=== PATIENT | female | born 1945 | race Caucasian/White ===

== ENCOUNTER 2019-11-17 04:15 | Emergency (ER) | payer MEDICARE, BC, SELFPAY ==
--- NOTE | ~2019-11-17 | CT_ITS ---
EXAMINATION: CT lumbar spine [facility] EXAM DATE: 11/17/2019 05:26 INDICATION: Low right-sided back pain. TECHNIQUE: Spiral CT of the lumbar spine was performed without contrast. Axial, coronal and sagittal images were reviewed. The dose-length product (DLP) for this examination was 1154.03 mGy-cm. The exposure was tailored according to patient size (auto mA exposure control), and iterative reconstruct ion (ASIR) was used as additional dose reduction technique. There is no prior study for comparison. FINDINGS: There are no acute fractures identified or endplate erosive change. There is 4 mm anteroli sthesis L4 on L5 with mild to moderate disc disease, vacuum disc phenomenon at this level. Mild disc disease at the other lumbar levels. There is no spondylolysis. No sacral insufficiency fracture. The re are no osteoblastic or osteolytic lesions identified. Mild to moderate abdominal aortic arterial s clerosis. There is right adrenal gland adenoma measuring 1.3 cm, probable smaller left adrenal gland adenoma. Level by level evaluation: T12-L1: Disc does not extend beyond the endplate margin. Facet arthropathy: None. Neural foraminal stenosis: No stenosis. Central canal stenosis: No stenosis. L1-L2: Disc does not extend beyond the endplate margin. Facet arthropathy: Mild. Neural foraminal stenosis: No stenosis. Central canal stenosis: No stenosis. L2-L3: There is a mild diffuse disc bulge. Facet arthropathy: Mild bilateral. Neural foraminal stenosis: No stenosis. Central canal stenosis: No stenosis. L3-L4: There is a mild diffuse disc bulge. Facet arthropathy: Mild to moderate. Neural foraminal stenosis: Mild to moderate right, mild left. Central canal stenosis: Mild to moderate. L4-L5: There is a moderate diffuse disc bulge. Facet arthropathy: Severe bilateral. Ligamentum flavum enlargement. Neural foraminal stenosis: Moderate bilateral, right greater than left. Central canal stenosis: Severe. L5-S1: There is a mild to moderate diffuse disc bulge. Facet arthropathy: Severe bilateral. Neural foraminal stenosis: Moderate bilateral, left greater than right. Central canal stenosis: Moderate. IMPRESSION: 1. L4-5 severe central canal stenosis. 2. Severe lower lumbar facet arthropathy. Reviewed, dictated and finalized at location A.
[2019-11-17 04:26] VITALS: BP 194/58; PULSE 76; RESP 18; TEMP 36.2; O2SAT 99
--- NOTE | 2019-11-17 04:38 | ED.GENADULT ---
HPI - General Adult General Chief complaint: Extremity Injury, Lower Stated complaint: R Hip Pain Time Seen by Provider: 11/17/19 04:26 Source: patient Mode of arrival: ambulatory Limitations: no limitations History of Present Illness HPI narrative: Patient is a 74-year-old female who presents for evaluation of right lower back pain. Patient reports the onset of pain approximately 3 days ago after she stepped down from her riding lawnmower, felt like she may have injured her back at that point in time. Pain is located on the right lower back with radiation into the right buttock, down the right thigh. Patient reports sharp, burning pain that seems to spasm. Pain does not severe when she is not moving. Exacerbated with movement. No associated numbness, saddle anesthesia, hesitancy, difficulty with urination. No fever or chills. Patient did not fall to the ground or have any trauma to that area. She denies any redness, swelling or bruising. Patient reports the use of Tylenol with good improvement in her pain. This evening, pain began to worsen while she was trying to find a more comfortable position to sleep, that she sought care in our emergency department. Related Data Allergies Allergy/AdvReac Type Severity Reaction Status Date / Time No Known Allergies Allergy Verified 11/17/19 04:28 Review of Systems Review of Systems: Narrative: CONSTITUTIONAL: Denies fever, chills, or sweats ENT: Denies rhinorrhea, congestion, sore throat, or otalgia. CARDIOVASCULAR: Denies chest pain RESPIRATORY: Denies cough or dyspnea. GASTROINTESTINAL: Denies abdominal pain GENITOURINARY: Denies dysuria or hematuria. SKIN: Denies rash or itching. MUSCULOSKELETAL: Reports right-sided back pain, denies hip pain, reports myalgias of the right thigh NEUROLOGIC: Denies headache, numbness, or weakness. [facility] Past Medical History Medical History (Updated 11/17/19 @ 06:13 by Joanne Adair MD) Arthritis Endometrial cancer Hypercholesterolemia Hypertension Social History Social History (Updated 11/17/19 @ 04:50 by Joanne Adair MD) Smoking status: Never smoker Alcohol intake: never Substance use: never Living arrangements: with family Gender identity (if verbalized by the patient): Female Exam Narrative: Exam Narrative: GENERAL: Awake, alert, conversant, mildly uncomfortable appearing HEAD: Normocephalic, atraumatic. EYES: PERRLA and EOMI. ENT: Nares clear, no rhinorrhea or epistaxis. Mucous membranes moist. NECK: Supple. CHEST: No respiratory distress, breathing even and non labored HEART: Regular rate, sinus rhythm ABDOMEN:Non distended, non tender EXTREMITIES: Normal range of motion. No edema. Thorax: No midline thoracic or lumbar pain. Positive right SI joint tenderness, which exactly reproduces pain. Hip is nontender to palpation. No pain with internal or external rotation of the right or left hip. Positive straight leg raise test on the right. Intact distal sensation. Intact EHL/FHL. SKIN: Warm, dry, no rash. NEURO:No focal deficits. Alert and oriented x3 Course Vital Signs Vital signs: Vital Signs Temperature 36.2 C L 11/17/19 04:26 Pulse Rate 76 11/17/19 04:26 Respiratory Rate 18 11/17/19 04:26 Blood Pressure 194/58 H 11/17/19 04:26 Pulse Oximetry 99 11/17/19 04:26 Temperature 36.2 C L 11/17/19 04:26 Pulse Rate 68 11/17/19 05:29 Respiratory Rate 19 11/17/19 05:29 Blood Pressure 122/86 11/17/19 05:29 Pulse Oximetry 98 11/17/19 05:29 Medical Decision Making MDM Narrative Medical decision making narrative: Patient presented for evaluation of right-sided back pain which is reproducible on exam and most consistent with musculoskeletal etiology. At the time of assessment, patient has no saddle anesthesia, numbness, weakness. Patient has been ambulatory. She only has pain with movement and straight leg raise. Otherwise, patient is comfortable. CT scan shows severe L4-5 c
[2019-11-17] MEDS: predniSONE 20 MG TABLET 60 MG PO (05:02)
[2019-11-17] MEDS: DIAZEPAM 5 MG TABLET PO (05:02)
[2019-11-17] MEDS: KETOROLAC (*BKC) 60 MG/2 ML VIAL 30 MG IM (05:02)
[2019-11-17] MEDS: LIDOCAINE 5% PATCH 1 PATCH TRANSDERM (05:28)
[2019-11-17 05:29] VITALS: BP 122/86; PULSE 68; RESP 19; O2SAT 98
[2019-11-17 06:33] VITALS: BP 149/64; BP 149/65; PULSE 65; RESP 18; RESP 19; TEMP 36.6; O2SAT 100
== END 2019-11-17 06:47 | disposition home or self-care (01) ==
PROVIDERS: Emergency Provider Emergency Medicine; PCP Internal Medicine
DX: M54.41 Lumbago with sciatica, right side (principal); M48.061 Spinal stenosis, lumbar region without neurogenic claudication; M19.90 Unspecified osteoarthritis, unspecified site; E78.00 Pure hypercholesterolemia, unspecified; I10 Essential (primary) hypertension; Z85.42 Personal history of malignant neoplasm of other parts of uterus
CPT/HCPCS: 72131; 96372; 99284; A9270; J1885; J7512

== ENCOUNTER 2020-02-25 01:43 | Outpatient (CLI) | payer MEDICARE, BC, SELFPAY ==
[2020-02-25 18:54] LABS: SARS-CoV-2 RNA PCR Negative
== END 2020-02-25 01:44 | disposition home or self-care (01) ==
LOC: ANHCOVIDDT 01:45
PROVIDERS: PCP Internal Medicine; Visit Provider Internal Medicine Gastroenterology
DX: Z01.812 Encounter for preprocedural laboratory examination (principal); Z20.828 Contact with and (suspected) exposure to other viral communicable diseases
CPT/HCPCS: 87635; C9803; U0003

== ENCOUNTER 2020-02-27 00:25 | Day surgery (SDC) | payer MEDICARE, BC, SELFPAY ==
[2020-02-14 13:14] VITALS: BMI 37.9
[2020-02-27 07:08] VITALS: BP 120/107; PULSE 72; RESP 16; TEMP 36.3; O2SAT 99; BMI 36.3
--- NOTE | 2020-02-27 07:13 | PM.HPGS ---
History of Present Illness History of Present Illness Consent: Risks, benefits, and alternatives have been discussed and questions answered. Patient agrees to proceed with procedure. Chief complaint: Neoplasm Screening Narrative: Kenyatta Perkins is a 75 year old W female referred for screening colonoscopy. Patient's last colonoscopy is 10 years ago she turns on 1st screening exam and she has an average risk patient. [facility] Past Medical History Medical History (Updated 02/27/20 @ 07:15 by Giuseppe Hensley MD) Arthritis Diabetes Endometrial cancer Hypercholesterolemia Hypertension Social History Social History (Updated 11/17/19 @ 04:50 by Joanne Adair MD) Smoking status: Never smoker Alcohol intake: never Substance use: never Gender identity (if verbalized by the patient): Female Meds Home Medications and Allergies Home Medications Medication Instructions Recorded Confirmed Type acetaminophen 500 mg PO Q6H PRN #30 cap 11/17/19 02/14/20 Rx ibuprofen 400 mg PO TID PRN 10 Days #30 11/17/19 02/14/20 Rx tablet B-complex with vitamin C [Super B 1 tablet PO DAILY 02/14/20 02/14/20 History Complex-Vitamin C] alpha lipoic acid 200 mg PO DAILY 02/14/20 02/14/20 History aspirin [Adult Low Dose Aspirin] 81 mg PO DAILY 02/14/20 02/14/20 History atorvastatin 10 mg PO DAILY 02/14/20 02/14/20 History etodolac 400 mg PO DAILY 02/14/20 02/14/20 History losartan-hydrochlorothiazide 1 tablet PO DAILY 02/14/20 02/14/20 History metformin 500 mg PO DAILY 02/14/20 02/14/20 History montelukast 10 mg PO DAILY 02/14/20 02/14/20 History omeprazole 20 mg PO DAILY 02/14/20 02/14/20 History Allergies Allergy/AdvReac Type Severity Reaction Status Date / Time No Known Allergies Allergy Verified 02/27/20 07:06 Vital Signs Vital Signs - 24 hr 02/27/20 07:08 Temperature 36.3 C L Pulse Rate 72 Respiratory Rate 16 Blood Pressure 120/107 H Pulse Oximetry 99 Exam Const: Orientation/consciousness: patient oriented x3 Resp: Auscultation: clear to auscultation bilaterally Cardio: Rate: regular rate Rhythm: regular rhythm Heart sounds: no murmurs GI: GI Palp: Yes Soft to palpation, No Tenderness to palpation present (GI), Yes No hepatosplenomegaly present and No Palpable mass present Auscultation: normal bowel sounds Neuro: General: patient oriented x3 and no focal motor deficits Extrem: General: no pedal edema Assessment and Plan Additional Plan screening colonoscopy in average risk patient
--- NOTE | 2020-02-27 07:27 | WPDANESEPPF ---
Anes - Initial Pre Proc Eval Procedure: Operation Date: 02/27/20 08:00 Proposed Procedures p Screening Colonoscopy - Giuseppe Hensley MD Date/Time: 02/27/20 07:27 Surgeon: Giuseppe Hensley MD Pre Op Diagnosis: Neoplasm Screening Patient Data Age: 75 Gender: F Height: 5 ft 1 in Weight: 87.4 kg Last Vital Signs Temp 97.3 F L 02/27/20 07:08 Pulse 72 02/27/20 07:08 Resp 16 02/27/20 07:08 BP 120/107 H 02/27/20 07:08 Pulse Ox 99 02/27/20 07:08 Allergies Allergy/AdvReac Type Severity Reaction Status Date / Time No Known Allergies Allergy Verified 02/27/20 07:06 Home Medications Medication Instructions Recorded Confirmed Type acetaminophen 500 mg PO Q6H PRN #30 cap 11/17/19 02/14/20 Rx ibuprofen 400 mg PO TID PRN 10 Days #30 11/17/19 02/14/20 Rx tablet B-complex with vitamin C [Super B 1 tablet PO DAILY 02/14/20 02/14/20 History Complex-Vitamin C] alpha lipoic acid 200 mg PO DAILY 02/14/20 02/14/20 History aspirin [Adult Low Dose Aspirin] 81 mg PO DAILY 02/14/20 02/14/20 History atorvastatin 10 mg PO DAILY 02/14/20 02/14/20 History etodolac 400 mg PO DAILY 02/14/20 02/14/20 History losartan-hydrochlorothiazide 1 tablet PO DAILY 02/14/20 02/14/20 History metformin 500 mg PO DAILY 02/14/20 02/14/20 History montelukast 10 mg PO DAILY 02/14/20 02/14/20 History omeprazole 20 mg PO DAILY 02/14/20 02/14/20 History Patient hx anesthesia problems: none Family hx anesthesia problems: none PMFSH Past Medical History Medical History (Updated 02/27/20 @ 07:15 by Giuseppe Hensley MD) Arthritis Diabetes Endometrial cancer Hypercholesterolemia Hypertension Social History Social History (Updated 11/17/19 @ 04:50 by Joanne Adair MD) Smoking status: Never smoker Alcohol intake: never Substance use: never Gender identity (if verbalized by the patient): Female Anes - Eval Final PreProcedure Day of Procedure 02/27/20 07:27 Patient weight: obese Heart: regular rate and rhythm Lungs: clear to auscultation Airway: Mallampati scale class II Neurological: alert and oriented Last oral intake: >/= 8 hours ASA classification: III Emergent: no Anesthetic plan: proceed Anesthesia type and monitoring: general GIVS and standard monitoring Informed Consent: The patient's anesthetic plan and its attendant risks and benefits were discussed with the patient/family/POA. Questions were solicited and answers provided to the satisfaction of the patient/family/POA.
[2020-02-27 07:33] LABS: Glucose Point of Care 126 (65-105)
[2020-02-27] MEDS: LACTATED RINGERS 1,000 ML 150 ML IV CONT (07:45)
[2020-02-27 08:24] VITALS: BP 103/37; PULSE 74; RESP 22; O2SAT 99
[2020-02-27 08:34] VITALS: BP 107/48; PULSE 71; RESP 17; O2SAT 99
[2020-02-27 08:44] VITALS: BP 106/54; PULSE 73; RESP 17; O2SAT 99
== END 2020-02-27 08:53 | disposition home or self-care (01) ==
PROVIDERS: PCP Internal Medicine; Visit Provider Internal Medicine Gastroenterology
PROC: 0DJD8ZZ Inspection of Lower Intestinal Tract, Via Natural or Artificial Opening Endoscopic (ICD-10-PCS; CPT 45378; principal; 2020-02-27 08:00)
DX: Z12.11 Encounter for screening for malignant neoplasm of colon (principal); K64.8 Other hemorrhoids; K64.4 Residual hemorrhoidal skin tags; I10 Essential (primary) hypertension; E11.9 Type 2 diabetes mellitus without complications; E78.00 Pure hypercholesterolemia, unspecified; Z85.42 Personal history of malignant neoplasm of other parts of uterus; Z79.82 Long term (current) use of aspirin; Z79.84 Long term (current) use of oral hypoglycemic drugs; E66.9 Obesity, unspecified; Z68.36 Body mass index [BMI] 36.0-36.9, adult
CPT/HCPCS: G0121; J2704; J7120

== ENCOUNTER 2021-05-04 17:26 | Emergency (ER) | payer MEDICARE, BC, SELFPAY ==
[2021-05-04] VITALS (43 sets, daily range): BP systolic 114–207; BP diastolic 58–102; PULSE 76–101; RESP 11–37; TEMP 36.7; O2SAT 69–100
--- NOTE | ~2021-05-04 | CT_ITS ---
EXAMINATION: CTA brain carotid DATE: 05/04/2021 19:00 CDT INDICATION: Speech difficulty and confusion TECHNIQUE: Computed tomographic angiography (CTA) of the head was performed without and with 100 mL O mnipaque-350 intravenous contrast. CTA of the neck was performed with intravenous contrast. The dose- length product was 605.33 mGy-cm. Maximum intensity projection and volume rendered 3D-reconstructions were created by the technologist on a separate workstation. COMPARISON: None. FINDINGS: HEAD CT/CTA: There is mild generalized atrophy. There are scattered moderate periventricular and subc ortical white matter changes, most likely related to small vessel ischemic disease (microangiopathy). No ventriculomegaly or midline shift. No acute intracranial hemorrhage, infarction, mass or mass eff ect. Basilar cisterns are patent. There are dominant vertebral arteries. The anterior, middle and posterior cerebral arteries are symme tric. No significant stenosis, occlusion or aneurysm. There is mild atherosclerosis. NECK CTA: The aorta and great vessels are unremarkable without evidence for aneurysm or dissection. T he common and internal carotid arteries are within normal limits without significant stenosis, occlus ion, dissection or aneurysm. Visualized lung parenchyma is unremarkable. There is 0% stenosis of the proximal right internal carotid artery relative to normal distal artery l umen diameter (NASCET criteria). There is 0% stenosis of the proximal left internal carotid artery re lative to normal distal artery lumen diameter. IMPRESSION: 1: No significant vascular abnormality of the neck or intracranial arteries. 2: No acute intracranial abnormality. 3: Chronic age-related findings. Reviewed, dictated and finalized at location A.
--- NOTE | 2021-05-04 17:47 | ECG_ITS ---
Measurements Intervals [place] Rate: 89 P: 56 WA: 179 QRS: 32 QRSD: 105 T: -9 QT: 355 QTc: 432 Interpretive Statements SINUS RHYTHM FREQUENT VENTRICULAR PREMATURE COMPLEXES ST-T WAVE ABNORMALITY IN INFERIOR LEADS- CONSIDER ISCHEMIA BASELINE ARTIFACT- I, II, AVR, AVL, AVF, V4 ABNORMAL ECG Electronically Signed On 05-04-2021 19:53:58 CDT by Brad Syed D.O.
[2021-05-04 18:02] LABS: Basophils Percent Auto 0.3 % (0.2-1.2); Eosinophils Absolute Auto 0.2 K/mm3 (0-0.3); Eosinophils Percent Auto 3.2 % (0-4.4); Hematocrit 33.4 % (37.0-47.0); Hemoglobin 10.9 g/dL (12.0-15.0); Immature Granulocyte Absolute 0.02 K/mm3 (0.00-0.031); Immature Granulocyte Percent A 0.3 % (0-0.5); Lymphocytes Absolute Auto 1.17 K/mm3 (0.9-3.2); Lymphocytes Percent Auto 19.8 % (18.3-44.2); Mean Corpuscular HGB Conc 32.6 g/dl (32-36); Mean Corpuscular Hemoglobin 31.4 pg (26-34); Mean Corpuscular Volume 96.3 fl (80-100); Mean Platelet Volume 10.3 fl (7.4-10.4); Monocytes Absolute Auto 0.8 K/mm3 (0.1-0.6); Neutrophils Absolute Auto 3.8 K/mm3 (1.3-6.7); Neutrophils Percent Auto 63.4 % (45.5-73.1); Platelet Count Result 210 k/mm3 (150-375); Red Blood Count 3.47 M/mm3 (4.2-5.4); Red Cell Distribution Width 13.2 % (11.5-14.5); White Blood Count 5.9 K/mm3 (4.5-10.0)
--- NOTE | 2021-05-04 18:10 | ED.GENADULT ---
HPI - General Adult General Chief complaint: Suspected CVA Stated complaint: ?stroke , onset few hrs ago. Time Seen by Provider: 05/04/21 17:37 Source: patient, family and RN notes reviewed History of Present Illness HPI narrative: Patient is a 76 y/o female brought in speech difficulty and confusion. states that they were taking their dog to a vet and he noticed that she started to have difficulty with speech suddenly around 3:30 PM. There is no known alleviating or exacerbating factor. She denies any complaint, but appears confused. Related Data Home Medications Medication Instructions Recorded Confirmed B-complex with vitamin C [Super B 1 tablet PO DAILY 02/14/20 02/14/20 Complex-Vitamin C] alpha lipoic acid 200 mg PO DAILY 02/14/20 02/14/20 aspirin [Adult Low Dose Aspirin] 81 mg PO DAILY 02/14/20 02/14/20 atorvastatin 10 mg PO DAILY 02/14/20 02/14/20 etodolac 400 mg PO DAILY 02/14/20 02/14/20 losartan-hydrochlorothiazide 1 tablet PO DAILY 02/14/20 02/14/20 metformin 500 mg PO DAILY 02/14/20 02/14/20 montelukast 10 mg PO DAILY 02/14/20 02/14/20 omeprazole 20 mg PO DAILY 02/14/20 02/14/20 Allergies Allergy/AdvReac Type Severity Reaction Status Date / Time No Known Allergies Allergy Verified 05/04/21 17:47 Review of Systems Constitutional: Constitutional: Denies chills, Denies fever(s), Denies headache(s) and Denies weakness Eyes: Eyes: Denies blurry vision ENT: Denies headache(s) and Denies neck pain Cardiovascular: Cardiovascular: Denies chest pain and Denies dyspnea Respiratory: Respiratory: Denies cough and Denies dyspnea Gastrointestinal: Gastrointestinal: Denies abdominal pain, Denies diarrhea, Denies nausea and Denies vomiting Genitourinary: Genitourinary: Denies hematuria and Denies dysuria Musculoskeletal: Musculoskeletal: Denies back pain and Denies neck pain Neurologic: Reports Abnormal speech present, Denies headache(s) and Denies weakness PMFSH Past Medical History Medical History Arthritis Diabetes Endometrial cancer Hypercholesterolemia Hypertension Social History Social History Smoking status: Never smoker Alcohol intake: never Substance use: never Gender identity (if verbalized by the patient): Female Exam Const: General: no acute distress and well developed Orientation/consciousness: oriented to person and confusion HENMT: Head: normocephalic Ears: external ears normal General nose exam: Normal external nose present Eyes: General: appearance normal, both eyes and all related structures Conjunctivae: conjunctivae normal Neck: Neck: normal visual inspection and full ROM Chest: Chest palpation & inspection: normal inspection of the chest and no tenderness Resp: Effort & Inspection: normal respiratory effort Auscultation: clear to auscultation bilaterally Cardio: Rate: regular rate Rhythm: regular rhythm GI: GI Palp: No abdominal tenderness and Yes Soft to palpation Skin: General skin exam: normal color and turgor normal Neuro: General: oriented to person and confusion Cognition (Neuro): abnormal cognition Extrem: General: normal to inspection, full ROM and no pedal edema Psych: Appearance: grossly normal Mental Status: mental status grossly normal Affect: normal affect Course Consultations Consultation #1: Discussed with Dr. Yang (neurology), who agrees to accept the patient for transfer. Date: 05/04/21 Time: 19:30 Vital Signs Vital signs: Vital Signs Pulse Rate 97 05/04/21 17:37 Respiratory Rate 11 L 05/04/21 17:37 Pulse Oximetry 100 05/04/21 17:37 Temperature 36.7 C 05/04/21 17:40 Pulse Rate 85 05/04/21 20:55 Respiratory Rate 18 05/04/21 20:55 Blood Pressure 150/58 H 05/04/21 20:55 Pulse Oximetry 98 05/04/21 20:55 Medical Decision Making Vital Signs Vital Signs: Vital Signs Pulse Rate 9
[2021-05-04 18:11] LABS: Anion Gap 11 mmol/L (8-16); Blood Urea Nitrogen 21 mg/dL (7-17); Calcium 9.6 mg/dL (8.4-10.2); Carbon Dioxide 24 mmol/L (22-30); Chloride 107 mmol/L (98-107); Estimated CRCL calculation 42 ml/min; Estimated Glomerular Filt Rate 54; Glucose 113 mg/dL (65-110); Potassium 4.1 mmol/L (3.4-5.0); Sodium 142 mmol/L (137-145)
[2021-05-04 18:12] LABS: INR 0.9; Prothrombin Time 12.2 Seconds (11.1-14.7)
[2021-05-04 18:13] LABS: Partial Thromboplastin Time 21.8 SECONDS (22.3-36.8)
--- NOTE | 2021-05-04 18:17 | PC.NURSE ---
Pt off floor to radiology
--- NOTE | 2021-05-04 18:50 | PC.NURSE ---
increased labetalol to 20mg from 10mg IV
[2021-05-04] MEDS: LABETALOL HCL INJ 100 MG/20 ML VIAL 20 MG IV PUSH ×2 (18:51→19:36)
--- NOTE | 2021-05-04 18:54 | PC.NURSE ---
Called pharmacy to confirm patient weight of 85 kg, asking to adjust TPA dose
[2021-05-04] MEDS: LABETALOL HCL INJ 100 MG/20 ML VIAL 10 MG IV PUSH ×3 (19:02→19:14)
--- NOTE | 2021-05-04 19:16 | PC.NURSE ---
OK to begin TPA per MD. BP 178/83, HR 79
--- NOTE | 2021-05-04 19:23 | PC.NURSE ---
TPA Start 1922, bolus of 7.6
--- NOTE | 2021-05-04 19:50 | PC.NURSE ---
Spoke with Dr Bautista about most recent vitals. OK to hold nicardipine drip at this time until systolic is about 185
--- NOTE | 2021-05-04 19:59 | PC.NURSE ---
Spoke with Reilly from [facility]. Admit to neuro ICU [id number]. Call report to [phone]. Bill [phone]. Accepting physician is Dr. Santiago
[2021-05-04] MEDS: niCARdipine 20 MG/200 ML 20 MG/200 ML BAG 50 MG IV CONT (20:05)
== END 2021-05-04 21:00 | disposition short-term general hospital (02) ==
LOC: ANHED 17:49
PROVIDERS: Emergency Provider Emergency Medicine; PCP Internal Medicine
DX: I63.9 Cerebral infarction, unspecified (principal); R29.704 NIHSS score 4; I10 Essential (primary) hypertension; E11.9 Type 2 diabetes mellitus without complications; E78.00 Pure hypercholesterolemia, unspecified; M19.90 Unspecified osteoarthritis, unspecified site; Z79.84 Long term (current) use of oral hypoglycemic drugs; Z79.82 Long term (current) use of aspirin; Z85.42 Personal history of malignant neoplasm of other parts of uterus; I49.3 Ventricular premature depolarization; R94.31 Abnormal electrocardiogram [ECG] [EKG]
CPT/HCPCS: 36415; 70496; 70498; 80048; 85025; 85610; 85730; 93005; 96365; 96375; 96376; 99285; J2997; Q9967

== ENCOUNTER 2021-06-28 19:21 | Inpatient (IN) | payer MEDICARE, BC, SELFPAY ==
--- NOTE | ~2021-06-28 | MR_ITS ---
EXAMINATION: MR brain/brain stem wo con DATE: 06/29/2021 11:28 INDICATION: Neurological changes. Altered mental status. TECHNIQUE: Magnetic resonance imaging (MRI) of the brain and brainstem was performed without intraven ous contrast. Sequences included sagittal and axial T1-weighted FSE, axial diffusion-weighted FS EPI, axial T2*-weighted GRE, axial T2-weighted FLAIR Propeller, and axial T2-weighted Propeller. Apparent diffusion coefficient (ADC) maps were created. COMPARISON: Head CT 06/28/2021 FINDINGS: There are scattered areas of nonspecific increased T2-weighted signal intensity in the cere bral white matter. There is a small old infarct in right cerebellum. There is no intracranial hemorrh age, acute infarction, or abnormal intracranial mass lesion. The ventricles are normal in size. There are likely changes of ocular lens replacement surgeries. There is anteroposterior elongation of the ocular globes. There is mild mucosal thickening in the ethmoid sinuses. The mastoid air cells are nor mal. IMPRESSION: 1. Small old infarct in right cerebellum. 2. Moderate nonspecific cerebral white matter disease, which likely represents chronic small vessel i schemic disease. Reviewed, dictated and finalized at location A. S [employer] IMPRESSION: 1. Small old infarct in right cerebellum. 2. Moderate nonspecific cerebral white matter disease, which likely represents chronic small vessel ischemic disease.
--- NOTE | ~2021-06-28 | CT_ITS ---
EXAMINATION: CT brain wo con DATE: 06/28/2021 19:39 INDICATION: Acute mental status changes including confusion with inappropriate verbal responses. TECHNIQUE: Computed tomography (CT) of the head was performed without intravenous contrast. Sagittal and coronal reconstructions were performed. The mA was adjusted according to patient size. Iterative reconstruction technique was employed. The dose-length product was 605.33 mGy-cm. COMPARISON: head CT dated 05/04/2021 FINDINGS: No acute intracranial hemorrhage, acute infarction or abnormal extra axial fluid collection. There is moderate scattered white matter hypoattenuation consistent with chronic small vessel ischemic diseas e. Symmetric prominence of the sulci and subarachnoid spaces overlying the convexities consistent wit h mild to moderate age-appropriate diffuse cerebral volume loss. Ventricles are normal and symmetric. No mass/mass effect. Changes of bilateral intraocular lens replacement. The orbits and mastoid air c ells are normal. Mild mucosal thickening the bilateral ethmoid sinuses. IMPRESSION: 1. No acute intracranial process. 2. Chronic age-related changes including mild to moderate diffuse volume loss and moderate scattered white matter hypoattenuation consistent with chronic small vessel ischemic disease. Reviewed, dictated and finalized at location H. ECT MANAGEMENT PROFESSIONAL IMPRESSION: 1. No acute intracranial process. 2. Chronic age-related changes including mild to moderate diffuse volume loss a nd moderate scattered white matter hypoattenuation consistent with chronic smal l vessel ischemic disease.
--- NOTE | ~2021-06-28 | CT_ITS ---
EXAMINATION: CTA BRAIN/CAROTID DATE: 06/28/2021 21:29 INDICATION: Altered mental status TECHNIQUE: Computed tomographic angiography (CTA) of the head and neck was performed with 100 mL Omni paque-350 intravenous contrast. Multiplanar reconstructions and maximum intensity projection 3D-recon structions of the carotid arteries and of the intracranial arteries were created by the technologist on a separate workstation. Automated exposure control and iterative reconstruction technique were em ployed.The dose-length product was 986.41 mGy-cm. COMPARISON: None. FINDINGS: Carotid arteries: There is 0% stenosis of the right carotid bulb relative to normal distal artery lumen diameter (NASCE T criteria). There is 0% stenosis of the left carotid bulb relative to normal distal artery lumen kal meter. Cervical soft tissues and visualized upper lungs are unremarkable. Mild cervical dextrocurvatu re with multilevel mild to moderate right-sided and moderate to severe left-sided facet osteoarthriti s. 2 mm anterolisthesis C4 on C5. Intracranial arteries Minimal calcified atherosclerotic plaque at the bilateral carotid siphons without hemodynamically sig nificant stenosis. There is no evident plaque or other hemodynamically significant stenosis in the ve rtebral or basilar arteries. Vertebral arteries are codominant. There are no aneurysms identified. B oth A1 and P1 segments are patent. Cerebral arterial arborization appears symmetric. No abnormally e nhancing brain lesions. IMPRESSION: 1. 0% stenosis of the right and left carotid bulbs relative to normal distal artery lumen diameter (N ASCET criteria). 2. Minimal atherosclerotic plaque without hemodynamically significant stenosis at the bilateral carot id siphons. Otherwise unremarkable cerebral CT angiogram. Reviewed, dictated and finalized at location . S PULLER HELPER IMPRESSION: 1. 0% stenosis of the right and left carotid bulbs relative to normal distal ar cheikh lumen diameter (NASCET criteria). 2. Minimal atherosclerotic plaque without hemodynamically significant stenosis at the bilateral carotid siphons. Otherwise unremarkable cerebral CT angiogram.
[2021-06-28 19:25] VITALS: BP 226/89; PULSE 92; RESP 18; TEMP 36.6; O2SAT 98
[2021-06-28 19:29] LABS: Glucose Point of Care 117 mg/dl (65-105)
[2021-06-28 19:45] VITALS: BP 207/80; PULSE 91; RESP 19; O2SAT 99
--- NOTE | 2021-06-28 20:05 | ED.GENADULT ---
HPI - General Adult General Chief complaint: Suspected CVA Stated complaint: I think my is having a stroke Time Seen by Provider: 06/28/21 19:58 Source: patient and RN notes reviewed History of Present Illness HPI narrative: Patient is a 76 y/o female here for altered mental status. states that she was acting strangely around 6:45 PM. He states that she was putting fuller she just bought in trash can. This is usual for her. states that her confusion has mostly cleared up. When asked why she was putting newly bought flower in trash, she states that she was trying to clean up. She has no complaint at this time. Of note, she was seen here for speech difficulty 2 months ago and was given tPA for stroke and transferred to [place]. Related Data Home Medications Medication Instructions Recorded Confirmed B-complex with vitamin C [Super B 1 tablet PO DAILY 02/14/20 02/14/20 Complex-Vitamin C] alpha lipoic acid 200 mg PO DAILY 02/14/20 02/14/20 atorvastatin 10 mg PO DAILY 02/14/20 02/14/20 etodolac 400 mg PO DAILY 02/14/20 02/14/20 losartan-hydrochlorothiazide 1 tablet PO DAILY 02/14/20 02/14/20 metformin 500 mg PO DAILY 02/14/20 02/14/20 montelukast 10 mg PO DAILY 02/14/20 02/14/20 omeprazole 20 mg PO DAILY 02/14/20 02/14/20 cyclobenzaprine 5 mg 06/28/21 Allergies Allergy/AdvReac Type Severity Reaction Status Date / Time No Known Allergies Allergy Verified 06/28/21 21:17 Review of Systems Constitutional: Constitutional: Denies chills, Denies fever(s), Denies headache(s) and Denies weakness Eyes: Eyes: Denies blurry vision ENT: Denies headache(s) and Denies neck pain Cardiovascular: Cardiovascular: Denies chest pain and Denies dyspnea Respiratory: Respiratory: Denies cough and Denies dyspnea Gastrointestinal: Gastrointestinal: Denies abdominal pain, Denies diarrhea, Denies nausea and Denies vomiting Genitourinary: Genitourinary: Denies hematuria and Denies dysuria Musculoskeletal: Musculoskeletal: Denies back pain and Denies neck pain Neurologic: Reports behavioral changes, Reports confusion, Denies headache(s) and Denies weakness PMFSH Past Medical History Medical History Arthritis Diabetes Endometrial cancer Hypercholesterolemia Hypertension Social History Social History Smoking status: Never smoker Alcohol intake: never Substance use: never Gender identity (if verbalized by the patient): Female Exam Const: General: no acute distress and well developed Orientation/consciousness: oriented to person, oriented to place, oriented to time and patient oriented x3 HENMT: Head: normocephalic Ears: external ears normal General nose exam: Normal external nose present Eyes: General: appearance normal, both eyes and all related structures Conjunctivae: conjunctivae normal Neck: Neck: normal visual inspection and full ROM Chest: Chest palpation & inspection: normal inspection of the chest and no tenderness Resp: Effort & Inspection: normal respiratory effort Auscultation: clear to auscultation bilaterally Cardio: Rate: regular rate Rhythm: regular rhythm GI: GI Palp: No abdominal tenderness and Yes Soft to palpation Skin: General skin exam: normal color and turgor normal Neuro: General: oriented to person, oriented to place, oriented to time and patient oriented x3 Cranial nerves: Yes CN's II-XII intact bilaterally Cognition (Neuro): normal cognition Speech: normal speech Motor exam (neuro): 5/5 motor strength present throughout Sensory Exam: normal sensation Coordination: [id number] test normal and [id number] test normal Extrem: General: normal to inspection, full ROM and no pedal edema Psych: Appearance: grossly normal Mental Status: mental status grossly normal Affect: normal affect Course Consultations Consultation #1: Discussed with Dr. Salas
--- NOTE | 2021-06-28 20:18 | ECG_ITS ---
Measurements Intervals [place] Rate: 79 P: 46 PA: 168 QRS: 34 QRSD: 109 T: -14 QT: 362 QTc: 417 Interpretive Statements SINUS RHYTHM NONSPECIFIC ST & T-WAVE ABNORMALITY- INFERIOR LEADS BORDERLINE ECG Electronically Signed On 06-29-2021 5:41:54 [employer] by Brad Syed D.O.
[2021-06-28 20:47] LABS: Basophils Percent Auto 0.5 % (0.2-1.2); Eosinophils Absolute Auto 0.2 K/mm3 (0-0.3); Eosinophils Percent Auto 2.5 % (0-4.4); Hematocrit 34.2 % (37.0-47.0); Hemoglobin 11.2 g/dL (12.0-15.0); Immature Granulocyte Absolute 0.02 K/mm3 (0.00-0.031); Immature Granulocyte Percent A 0.3 % (0-0.5); Lymphocytes Absolute Auto 1.59 K/mm3 (0.9-3.2); Mean Corpuscular HGB Conc 32.7 g/dl (32-36); Mean Corpuscular Hemoglobin 31.7 pg (26-34); Mean Corpuscular Volume 96.9 fl (80-100); Mean Platelet Volume 10.5 fl (7.4-10.4); Monocytes Absolute Auto 0.8 K/mm3 (0.1-0.6); Monocytes Percent Auto 12.3 % (2.6-8.5); Neutrophils Absolute Auto 3.6 K/mm3 (1.3-6.7); Neutrophils Percent Auto 58.4 % (45.5-73.1); Platelet Count Result 258 k/mm3 (150-375); Red Blood Count 3.53 M/mm3 (4.2-5.4); Red Cell Distribution Width 14.7 % (11.5-14.5); White Blood Count 6.1 K/mm3 (4.5-10.0)
[2021-06-28 20:57] LABS: Alanine Aminotransferase 31 U/L (4-35); Albumin Level 4.9 g/dL (3.5-5.1); Alkaline Phosphatase 109 U/L (38-126); Anion Gap 9 mmol/L (8-16); Aspartate Amino Transferase 27 U/L (14-36); Bilirubin,Total 0.4 mg/dL (0.2-1.3); Blood Urea Nitrogen 23 mg/dL (7-17); Carbon Dioxide 27 mmol/L (22-30); Chloride 101 mmol/L (98-107); Estimated CRCL calculation 40 ml/min; Estimated Glomerular Filt Rate 54; Glucose 122 mg/dL (65-110); Potassium 4.3 mmol/L (3.4-5.0); Sodium 137 mmol/L (137-145)
[2021-06-28 21:30] VITALS: BP 189/74; PULSE 91; RESP 20; O2SAT 99
[2021-06-28 22:14] VITALS: BP 189/74; RESP 20
[2021-06-28 22:55] VITALS: BP 161/76; PULSE 101; RESP 17; TEMP 36.9; O2SAT 99
[2021-06-29] VITALS (7 sets, daily range): BP systolic 161–196; BP diastolic 50–72; PULSE 71–81; RESP 16–18; TEMP 36.5–36.8; O2SAT 98–100; BMI 34.9
--- NOTE | 2021-06-29 02:55 | ADMGEN ---
This patient, Kenyatta Perkins, was admitted to 3 Med Surg Room 317-01. Patient/family oriented to hospital policies and general routines including ID bracelet, bed and alarms, visiting hours, pain management, procedures, bathroom and other care routines, personal items, smoking policy, room service/diet, and visiting hours. Information on how to activate the Rapid Response Team has been discussed. Patient/Family are encouraged to report perceived risks to care and to ask questions if they do not understand what they are told or what they should do.
--- NOTE | 2021-06-29 04:13 | PC.NURSE ---
Called Dr. Goodman and reported patient elevated blood pressures since arrival to medical floor. Doctor stated did not want to add any new orders at this time.
--- NOTE | 2021-06-29 04:19 | PM.IMHP ---
H&P: HPI History of Present Illness Date/Time: 06/29/21 04:19 Chief Complaint: ?acting strange? Narrative: 76-year-old female with past medical history of hypertension, GERD, diabetes, and recent CVA who presented to the ER after developing strange behavior. The patient's reported that the patient was having difficulty understanding what he was saying. She had just been to the store and bought a bunch of fuller and then he found her in the garage trying the fuller away. When he would ask her questions she was unable to answer them. Her symptoms started around 6:45 p.m. The patient's symptoms had mostly resolved by the time she came to the ER. However, at the time my evaluation the patient is still having difficulty with word finding. She did note that her hand was transiently numb during this episode. This sensation of numbness has since resolved. She states that since he had her prior stroke in April she has had bilateral leg pain but her leg pain is unchanged from baseline over the last couple of months. She has no weakness of her lower extremities. She did not have any headache or visual changes. She has not been having any difficulty with ambulation or coordination. Review of Systems Review of Systems: 12 systems were reviewed with pertinent positives and negatives per HPI. Except as documented in the HPI, all other systems were reviewed and are negative. [facility] Past Medical History Medical History (Updated 06/29/21 @ 05:10 by Lavern Salas DO) Arthritis CVA (cerebral vascular accident) (04/2021) Diabetes (~02/2020) Endometrial cancer (~2015) Treated with hysterectomy for by radiation and chemotherapy Hypercholesterolemia Hypertension Surgical History Surgical History (Updated 06/29/21 @ 06:11 by Lavern Salas DO) History of appendectomy History of hysterectomy (~2015) History of total right knee replacement (~2013) Status post cataract extraction of both eyes with insertion of intraocular lens Social History Social History Smoking status: Never smoker Second hand tobacco smoke exposure: No Alcohol intake: never Substance use: never Substance use type: does not use Gender identity (if verbalized by the patient): Female Spiritual care concerns: No Meds Home Medications and Allergies Home Medications Medication Instructions Recorded Confirmed Type acetaminophen 500 mg PO Q6H PRN #30 cap 11/17/19 06/29/21 Rx B-complex with vitamin C [Super B 1 tablet PO DAILY 02/14/20 06/29/21 History Complex-Vitamin C] alpha lipoic acid 200 mg PO DAILY 02/14/20 06/29/21 History atorvastatin [Lipitor] 10 mg PO DAILY 02/14/20 06/29/21 History etodolac 400 mg PO BID 02/14/20 06/29/21 History losartan-hydrochlorothiazide 1 tablet PO DAILY 02/14/20 06/29/21 History metformin 500 mg PO DAILY 02/14/20 06/29/21 History montelukast [Singulair] 10 mg PO DAILY 02/14/20 06/29/21 History omeprazole 20 mg PO DAILY 02/14/20 06/29/21 History cyclobenzaprine 5 mg PO DAILY 06/28/21 06/29/21 History apixaban [Eliquis] 5 mg PO DAILY 06/29/21 06/29/21 History Allergies Allergy/AdvReac Type Severity Reaction Status Date / Time No Known Allergies Allergy Verified 06/28/21 21:17 Vital Signs Vital Signs - 24 hr 06/28/21 19:25 06/28/21 19:45 06/28/21 21:30 Temperature 97.9 F Pulse Rate 92 91 91 Respiratory Rate 18 19 20 Blood Pressure 226/89 H 207/80 H 189/74 H Pulse Oximetry 98 99 99 06/28/21 22:14 06/28/21 22:55 06/29/21 01:50 Temperature 98.4 F Pulse Rate 101 H 78 Respiratory Rate 20 17 16 Blood Pressure 189/74 H 161/76 H 161/50 H Pulse Oximetry 99 06/29/21 02:00 06/29/21 04:12 Temperature 97.7 F Pulse Rate 81 Respiratory Rate 16 Blood Pressure 196/64 H 186/67 H Pulse Oximetry 98 Exam Narrative: PHYSICAL EXAM: WEIGHT 84 kg BMI 35 General: Obese, no acute distress HEENT: No facial asymmetry, head is nor
[2021-06-29 08:53] LABS: Glucose Point of Care 124 mg/dl (65-105)
[2021-06-29] MEDS: hydroCHLOROthiazide 12.5 MG CAPSULE PO (11:53)
[2021-06-29] MEDS: CYCLOBENZAPRINE HCL 5 MG TABLET PO (11:53)
[2021-06-29] MEDS: ATORVASTATIN 10 MG TABLET PO (11:53)
[2021-06-29] MEDS: LOSARTAN POTASSIUM 50 MG TABLET PO (11:53)
[2021-06-29] MEDS: MONTELUKAST SODIUM 10 MG TABLET PO (11:53)
[2021-06-29] MEDS: APIXABAN 5 MG TABLET PO (11:53)
[2021-06-29] MEDS: PANTOPRAZOLE 40 MG TABLET PO (11:54)
[2021-06-29 12:22] LABS: Glucose Point of Care 113 mg/dl (65-105)
--- NOTE | 2021-06-29 13:58 | PM.DS ---
DS: Admitting Diagnosis Discharge Date 06/29/2021 Admitting Diagnosis Altered mental status DS: Discharge Diagnosis Discharge Diagnosis (1) TIA (transient ischemic attack): Code(s): G45.9 - Transient cerebral ischemic attack, unspecified Status: Acute Assessment and Plan: Patient has history of stroke April 2021 for which she received tPA. Denies residual deficits. Presented with difficulty word finding and transient numbness of her left hand. Head CT on presentation showed no acute intracranial findings with evidence of chronic mild to moderate diffuse volume loss. Head/neck CTA showed 0% stenosis of the right and left carotid bulbs. Brain MRI showed small old infarct in right cerebellum with with no acute findings. Telemetry reviewed and she was in normal sinus rhythm with no evidence of dysrhythmias. Discussed with neurologist, Dr. Waite, and felt that symptoms were related to TIA. She was started on Eliquis following her stroke in April which she will continue. Aspirin 81 mg daily was added per Neurology recommendations. Atorvastatin increased to 40 mg daily. She will obtain an outpatient echocardiogram and follow up with her PCP. She also has follow up scheduled with her neurologist from [facility] sometime in July. Of note, at the time of my dictation of this discharge summary, it appeared on the EMR that the patients prescriptions for aspirin and atorvastatin did not transmit. I called and spoke to the patient and her on 07/05/21 who informed that she did receive the prescriptions and has been taking consistently since discharge. She has follow up scheduled with Dr. Aguirre, her PCP, next week. (2) Uncontrolled hypertension: Code(s): I10 - Essential (primary) hypertension Status: Acute Assessment and Plan: Blood pressures markedly elevated on presentation up to 226/89. Patient reports she is not compliant with her blood pressure medications. Home losartan-HCTZ was resumed and BP improved at appropriate rate to 168/72. Discussed importance of strict compliance with antihypertensive regimen. Instructed to monitor blood pressures at home and record for review by PCP in 1 week. (3) Diabetes: Onset Date: ~02/2020 Code(s): E11.9 - Type 2 diabetes mellitus without complications Status: Acute Assessment and Plan: Blood sugars well controlled during admission. Continue monitoring glucose at home. Continue metformin. DS: Summary Hospital Course Hospital Course: Date of admission: 06/28/2021 Date of discharge: 06/29/2021 Kenyatta Perkins is a 76-year-old female with a history hypertension, hyperlipidemia, endometrial cancer, type 2 diabetes mellitus, and CVA in April 2021 requiring tPA who presented to the emergency department on 06/28/2021 S her was concerned that she was acting strange. It sounds that she was having a hard time a finding her words and had somewhat odd behavior. On presentation to the emergency department, her blood pressure was markedly elevated at 220 6/89, additional vital signs stable, CBC and BMP unremarkable, glucose was 122, and head CT showed no acute findings. She was admitted to the hospitalist service for further evaluation management. Please see above for further details. MRI was negative for any acute findings and symptoms were felt to be related to TIA. Case was discussed with Neurology and she has follow-up scheduled with her neurologist. Her blood pressure did improve with resuming her medications. Importance of compliance was stressed. She was feeling back to her usual state of health and was eager for discharge home. Given her overall improvement, she was determined to no longer require inpatient care and was felt to be stable for discharge. I discussed with the patient worrisome signs and symptoms for which to return and she was educated on her medications. She was discharged in hemodynamically stable conditio
== END 2021-06-29 14:50 | disposition home or self-care (01) | DRG 69 ==
LOC: ANHED 22:51 → ANH3MEDSUR 06-29 00:32
PROVIDERS: Physician Assistant; Admitting Provider Internal Medicine; Emergency Provider Emergency Medicine; PCP Internal Medicine; Visit Provider Internal Medicine
DX: G45.9 Transient cerebral ischemic attack, unspecified (principal); I10 Essential (primary) hypertension; E11.9 Type 2 diabetes mellitus without complications; E78.00 Pure hypercholesterolemia, unspecified; E78.5 Hyperlipidemia, unspecified; K21.9 Gastro-esophageal reflux disease without esophagitis; Z79.84 Long term (current) use of oral hypoglycemic drugs; Z79.899 Other long term (current) drug therapy; Z85.42 Personal history of malignant neoplasm of other parts of uterus; Z86.73 Personal history of transient ischemic attack (TIA), and cerebral infarction without residual deficits; Z98.42 Cataract extraction status, left eye; Z98.41 Cataract extraction status, right eye; Z96.1 Presence of intraocular lens
CPT/HCPCS: 36415; 70450; 70496; 70498; 70551; 80053; 82948; 85025; 93005; 99285; A9270; G0378; Q9967

== ENCOUNTER 2021-07-01 07:54 | Emergency (ER) | payer MEDICARE, BC, SELFPAY ==
--- NOTE | ~2021-07-01 | CT_ITS ---
EXAMINATION: CT brain wo con DATE: 07/01/2021 09:00 INDICATION: Confusion TECHNIQUE: Computed tomography (CT) of the head was performed without intravenous contrast. The dose- length product was 605.33 mGy-cm. Automated exposure control and iterative reconstruction technique w ere employed. COMPARISON: CT dated 06/28/2021 and MRI dated 06/29/2021 FINDINGS: Generalized atrophy. There are scattered mild periventricular and subcortical white matter changes, most likely related to small vessel ischemic disease (microangiopathy). No acute intracrania l hemorrhage, infarction, mass or mass effect. No ventriculomegaly or midline shift. Basilar cisterns are patent.Paranasal sinuses and mastoids are pneumatized. No depressed skull fractures. Midline sag ittal images are unremarkable. IMPRESSION: 1. No acute intracranial abnormality. No significant interval change. Reviewed, dictated and finalized at location A. LEMAKER
[2021-07-01 08:00] VITALS: BP 149/66; PULSE 80; RESP 18; O2SAT 98
--- NOTE | 2021-07-01 08:05 | ECG_ITS ---
Measurements Intervals [place] Rate: 72 P: 61 NE: 173 QRS: 19 QRSD: 106 T: -21 QT: 381 QTc: 417 Interpretive Statements SINUS RHYTHM LEFT VENTRICULAR HYPERTROPHY AND ST-T CHANGE MINIMAL Q WAVES- INFERIOR LEADS BORDERLINE ST-T WAVE ABNORMALITY- ANTERIOR LEADS BASELINE ARTIFACT- I, II, III, AVR, AVF, V1 BORDERLINE ECG Electronically Signed On 07-01-2021 9:01:10 TREE SURGEON HELPER by Brad Syed D.O.
[2021-07-01 08:27] LABS: Basophils Percent Auto 0.4 % (0.2-1.2); Eosinophils Absolute Auto 0.1 K/mm3 (0-0.3); Hematocrit 33.9 % (37.0-47.0); Immature Granulocyte Absolute 0.01 K/mm3 (0.00-0.031); Immature Granulocyte Percent A 0.2 % (0-0.5); Lymphocytes Absolute Auto 1.22 K/mm3 (0.9-3.2); Lymphocytes Percent Auto 22.1 % (18.3-44.2); Mean Corpuscular HGB Conc 32.4 g/dl (32-36); Mean Corpuscular Volume 95.5 fl (80-100); Monocytes Absolute Auto 0.5 K/mm3 (0.1-0.6); Monocytes Percent Auto 9.4 % (2.6-8.5); Neutrophils Absolute Auto 3.7 K/mm3 (1.3-6.7); Neutrophils Percent Auto 65.9 % (45.5-73.1); Platelet Count Result 258 k/mm3 (150-375); Red Blood Count 3.55 M/mm3 (4.2-5.4); Red Cell Distribution Width 14.7 % (11.5-14.5); White Blood Count 5.5 K/mm3 (4.5-10.0)
--- NOTE | 2021-07-01 08:28 | PC.NURSE ---
Pt demonstrated signs of uncooperativeness at this time and gave approx 7mls of urine. When this nurse asked if the pt would try again later for urine, pt stated, Maybe I will, or I won't. Will attempt to collect more urine later.
[2021-07-01 08:37] LABS: Alanine Aminotransferase 27 U/L (4-35); Albumin Level 4.6 g/dL (3.5-5.1); Alkaline Phosphatase 69 U/L (38-126); Anion Gap 6 mmol/L (8-16); Aspartate Amino Transferase 27 U/L (14-36); Bilirubin,Total 0.6 mg/dL (0.2-1.3); Blood Urea Nitrogen 27 mg/dL (7-17); Calcium 9.9 mg/dL (8.4-10.2); Carbon Dioxide 29 mmol/L (22-30); Chloride 100 mmol/L (98-107); Estimated CRCL calculation 29 ml/min; Estimated Glomerular Filt Rate 37; Glucose 133 mg/dL (65-110); Sodium 135 mmol/L (137-145)
[2021-07-01 08:39] LABS: INR 1.2; Prothrombin Time 14.8 Seconds (11.1-14.7)
[2021-07-01 08:40] LABS: Partial Thromboplastin Time 23.6 SECONDS (22.3-36.8)
[2021-07-01 08:45] LABS: Add Urine Microscopic? YES; Appearance Urine Cloudy (Clear); Bacteria Urine Trace /hpf; Bilirubin Urine 1+ (Negative); Color Urine Yellow (Yellow); Glucose Urine UA Negative (Negative); Ketones Urine Negative (Negative); Leukocyte Esterase Ur 3+ LEU/UL (Negative); Mucus Urine Rare /lpf; Nitrate Urine Negative (Negative); Protein Urine Negative (Negative); Specific Grav Ur 1.019 (1.001-1.035); Squamous Epithelial Cell Urine Few /hpf (Few)
[2021-07-01 08:46] LABS: Blood Urine Negative (Negative)
[2021-07-01] MEDS: SODIUM CHLORIDE 0.9% IV 1,000 ML 999 ML IV CONT (09:39)
--- NOTE | 2021-07-01 09:42 | ED.AMS ---
HPI - Altered Mental Status General Chief Complaint: Altered Mental Status Stated Complaint: altered mental status Time Seen by Provider: 07/01/21 08:07 Source: patient and RN notes reviewed Mode of arrival: ambulatory Limitations: no limitations History of Present Illness HPI narrative: This is a 76 year old female with history of hypertension, DM, hyperlipidemia and CVA who presents for evaluation of confusion. Patient's states patient was in the pantry this morning in the dark but she did not seem to be aware of what she was doing. He states she told him she was trying to do something. She was able to talk and walk. Patient states her woke her up before she could get her bearings, and she is upset that she is here. She is oriented x 4. Her states she is 100% better now. Patient's symptoms only lasted minutes. Patient was discharged from hospital 2 days ago for similar occurrence. She had CTA brain and carotid that was negative for acute findings. She also had an MRI that did no show any acute findings. Patient was transferred to [place] almost 2 months ago for stroke, and she received tpa. These symptoms are different, and she actually had aphasia. Patient has no complaints. Related Data Home Medications Medication Instructions Recorded Confirmed B-complex with vitamin C [Super B 1 tablet PO DAILY 02/14/20 06/29/21 Complex-Vitamin C] alpha lipoic acid 200 mg PO BID 02/14/20 06/29/21 etodolac 400 mg PO BID 02/14/20 06/29/21 losartan-hydrochlorothiazide 1 tablet PO BID 02/14/20 06/29/21 metformin 500 mg PO DAILY 02/14/20 06/29/21 montelukast [Singulair] 10 mg PO DAILY 02/14/20 06/29/21 omeprazole 20 mg PO BID 02/14/20 06/29/21 cyclobenzaprine 5 mg PO DAILY 06/28/21 06/29/21 Eliquis 5 mg PO BID 06/29/21 06/29/21 atorvastatin 10 mg PO DAILY 07/01/21 calcium carbonate-vitamin D2 1 tablet PO BID 07/01/21 [Calcium + Vitamin D] magnesium 400 mg PO DAILY 07/01/21 multivit with min-folic acid 1 tablet PO DAILY 07/01/21 [Adult One Daily Multivitamin] potassium 99 mg PO BID 07/01/21 Allergies Allergy/AdvReac Type Severity Reaction Status Date / Time No Known Allergies Allergy Verified 06/28/21 21:17 Review of Systems Review of Systems: All systems reviewed & are unremarkable except as noted in HPI and below Constitutional: Constitutional: Denies chills, Denies fever(s) and Denies weakness ENT: Denies sore throat Cardiovascular: Cardiovascular: Denies chest pain and Denies radiating jaw, neck or arm pain Respiratory: Respiratory: Denies cough and Denies dyspnea Gastrointestinal: Gastrointestinal: Denies abdominal pain, Denies nausea and Denies vomiting PMFSH Past Medical History Medical History Arthritis CVA (cerebral vascular accident) (04/2021) Diabetes (~02/2020) Endometrial cancer (~2015) Treated with hysterectomy for by radiation and chemotherapy Hypercholesterolemia Hypertension Surgical History Surgical History History of appendectomy History of hysterectomy (~2015) History of total right knee replacement (~2013) Status post cataract extraction of both eyes with insertion of intraocular lens Social History Social History Smoking status: Never smoker Second hand tobacco smoke exposure: No Alcohol intake: never Substance use: never Substance use type: does not use Gender identity (if verbalized by the patient): Female Spiritual care concerns: No Exam Const: General: no acute distress and alert Orientation/consciousness: patient oriented x3 HENMT: Head: normocephalic and atraumatic Face and sinus: normal facial exam, sinuses nontender and face symmetric Mouth: Yes Normal oral and palatal mucosa present, Yes lip normal, Yes tongue normal, Yes oropharynx normal and Yes moist
[2021-07-01 11:32] VITALS: BP 152/111; PULSE 77; RESP 20; O2SAT 99
== END 2021-07-01 11:33 | disposition home or self-care (01) ==
PROVIDERS: Emergency Provider General Practice; PCP Internal Medicine
DX: R41.0 Disorientation, unspecified (principal); N39.0 Urinary tract infection, site not specified; E86.0 Dehydration; I10 Essential (primary) hypertension; E11.9 Type 2 diabetes mellitus without complications; E78.5 Hyperlipidemia, unspecified; M19.90 Unspecified osteoarthritis, unspecified site; Z85.44 Personal history of malignant neoplasm of other female genital organs; E78.00 Pure hypercholesterolemia, unspecified; Z86.73 Personal history of transient ischemic attack (TIA), and cerebral infarction without residual deficits; I51.7 Cardiomegaly; R94.31 Abnormal electrocardiogram [ECG] [EKG]; Z96.651 Presence of right artificial knee joint; Z98.42 Cataract extraction status, left eye; Z98.41 Cataract extraction status, right eye; Z96.1 Presence of intraocular lens; Z79.01 Long term (current) use of anticoagulants; Z79.84 Long term (current) use of oral hypoglycemic drugs
CPT/HCPCS: 36415; 51701; 70450; 80053; 81001; 85025; 85610; 85730; 87086; 87088; 93005; 96365; 99291; J0696; J7030

== ENCOUNTER 2021-07-19 08:13 | Inpatient (IN) | payer MEDICARE, BC, SELFPAY ==
[2021-07-19] VITALS (46 sets, daily range): BP systolic 115–162; BP diastolic 58–83; PULSE 80–147; RESP 8–25; TEMP 36–36.4; O2SAT 96–100
--- NOTE | ~2021-07-19 | XR_ITS ---
EXAMINATION: XR chest 2V DATE: 07/19/2021 08:42 INDICATION: Bilateral lower chest pain. TECHNIQUE: Frontal and lateral views of the chest were obtained. COMPARISON: Chest 2 views 03/13/2018 FINDINGS: Calcified left lung nodules are consistent with old granulomatous disease. No pleural effus ion or pneumothorax. The heart size is normal. There are old healed right rib fractures. IMPRESSION: 1. No acute cardiopulmonary disease. Reviewed, dictated and finalized at location B. TY SHERIFF K9 HANDLER
--- NOTE | ~2021-07-19 | NM_ITS ---
EXAMINATION: NM hepatobiliary w pharm EXAM DATE: 07/20/2021 11:16 INDICATION: Upper abdominal pain . TECHNIQUE: 5.5 mCi Tc-99m mebrofenin (Choletec) was administered intravenously. Scintigraphic images of the abdomen were obtained for one hour. At the 1 hour time point, 1.62 mcg sincalide (Kinevac) wa s administered by slow intravenous infusion, and imaging was continued for 30 minutes. Gallbladder ej ection fraction was calculated by the technologist. Correlation is made to right upper quadrant sonog vinod earlier same date. FINDINGS: There is normal clearance of radiotracer from the blood pool. There is homogeneous tracer u ptake by the liver. Activity progresses to the gallbladder and bowel. The gallbladder ejection fract ion (GBEF) is 56 % (most patients with gallbladder dysfunction have GBEF < 35%, but there is overlap with the normal range of 10-90%). IMPRESSION: Gallbladder ejection fraction 56%, within normal range. Reviewed, dictated and finalized at location A. MS MANAGER
--- NOTE | ~2021-07-19 | US_ITS ---
EXAMINATION: US renal BI DATE: 07/19/2021 13:44 INDICATION: Acute renal failure. TECHNIQUE: Multiple ultrasound grayscale images of the kidneys were obtained. COMPARISON: None. FINDINGS: The right kidney measures 9.9 x 4.1 x 4.0 cm. The left kidney measures 10.6 x 3.9 x 5.7 cm. The kidne ys demonstrate normal parenchymal echogenicity. There is no hydronephrosis. The bladder is normal. IMPRESSION: 1. Normal kidneys. No hydronephrosis. Reviewed, dictated and finalized at location B. E TENDER
--- NOTE | ~2021-07-19 | US_ITS ---
EXAMINATION: US abdomen limited EXAM DATE: 07/20/2021 09:35 INDICATION: Upper abdominal pain . TECHNIQUE: Multiple grayscale and Doppler images of the abdomen right upper quadrant were obtained (b y a technologist who performed the scan) and subsequently reviewed. Comparison is made to prior exami nation from 07/19/2021. FINDINGS: The pancreatic head and body are normal in appearance. The pancreatic tail is not visualized. The l iver has normal echogenicity and contour. Anechoic structure with increased through transmission in the liver anteriorly measuring up to 1.7 cm, consistent with a cyst There is no evidence of intrahep atic biliary duct dilation. Portal venous flow was seen in the hepatopedal, normal direction and has normal Doppler waveform. No right-sided hydronephrosis. Common bile duct measures 7 mm, which is normal for patient's age. The gallbladder wall is normal in thickness, with expected amount of distention. No sonographic evidence of pericholecystic fluid. Th ere is no cholelithiases. Technologist performing exam reports patient did not demonstrate sonographi c Allen's sign. Please note that this sign is less reliable in patients who have received pain medi cation. IMPRESSION: 1. Unremarkable abdominal ultrasound exam. Reviewed, dictated and finalized at location A. RICT RANGER
--- NOTE | 2021-07-19 08:28 | ECG_ITS ---
Measurements Intervals [place] Rate: 143 P: [place]: 0 QRS: 22 QRSD: 107 T: -48 QT: 271 QTc: 419 Interpretive Statements ATRIAL FIBRILLATION WITH RAPID VENTRICULAR RESPONSE LEFT VENTRICULAR HYPERTROPHY WITH ST-T CHANGE ST-T WAVE ABNORMALITY IN ANTEROLAT/INF LEADS- CONSIDER ISCHEMIA ABNORMAL ECG Electronically Signed On 07-19-2021 8:42:01 SHARED SERVICES REPRESENTATIVE by Brad Syed D.O.
[2021-07-19 08:41] LABS: Basophils Percent Auto 0.4 % (0.2-1.2); Eosinophils Absolute Auto 0.1 K/mm3 (0-0.3); Eosinophils Percent Auto 1.8 % (0-4.4); Hematocrit 34.6 % (37.0-47.0); Hemoglobin 11.3 g/dL (12.0-15.0); Immature Granulocyte Absolute 0.03 K/mm3 (0.00-0.031); Immature Granulocyte Percent A 0.6 % (0-0.5); Lymphocytes Absolute Auto 0.81 K/mm3 (0.9-3.2); Lymphocytes Percent Auto 14.9 % (18.3-44.2); Mean Corpuscular HGB Conc 32.7 g/dl (32-36); Mean Corpuscular Hemoglobin 31.1 pg (26-34); Mean Corpuscular Volume 95.3 fl (80-100); Mean Platelet Volume 9.9 fl (7.4-10.4); Monocytes Absolute Auto 0.7 K/mm3 (0.1-0.6); Monocytes Percent Auto 13.2 % (2.6-8.5); Neutrophils Absolute Auto 3.8 K/mm3 (1.3-6.7); Neutrophils Percent Auto 69.1 % (45.5-73.1); Platelet Count Result 221 k/mm3 (150-375); Red Blood Count 3.63 M/mm3 (4.2-5.4); Red Cell Distribution Width 13.9 % (11.5-14.5); White Blood Count 5.4 K/mm3 (4.5-10.0)
--- NOTE | 2021-07-19 08:44 | ED.CHESTPAIN ---
HPI - Chest Pain General Chief Complaint: Chest Pain Stated Complaint: chest pain since Monday Time Seen by Provider: 07/19/21 08:20 Source: patient Mode of arrival: ambulatory Limitations: no limitations History of Present Illness HPI narrative: Patient is a 70-year-old female complain of chest pain, across the chest, tightness, 5 out of 10, nonradiating accompanied by palpitations started this morning. Patient in atrial fib with RVR upon arrival. Patient denies any history of atrial fib. Patient is on Eliquis. Patient denies any shortness of breath, abdominal pain, nausea, vomiting, diaphoresis, fever or chills. Related Data Home Medications Medication Instructions Recorded Confirmed B-complex with vitamin C [Super B 1 tablet PO DAILY 02/14/20 06/29/21 Complex-Vitamin C] alpha lipoic acid 200 mg PO BID 02/14/20 06/29/21 etodolac 400 mg PO BID 02/14/20 06/29/21 losartan-hydrochlorothiazide 1 tablet PO BID 02/14/20 06/29/21 metformin 500 mg PO DAILY 02/14/20 06/29/21 montelukast [Singulair] 10 mg PO DAILY 02/14/20 06/29/21 omeprazole 20 mg PO BID 02/14/20 06/29/21 cyclobenzaprine 5 mg PO DAILY 06/28/21 06/29/21 Eliquis 5 mg PO BID 06/29/21 06/29/21 atorvastatin 10 mg PO DAILY 07/01/21 calcium carbonate-vitamin D2 1 tablet PO BID 07/01/21 [Calcium + Vitamin D] magnesium 400 mg PO DAILY 07/01/21 multivit with min-folic acid 1 tablet PO DAILY 07/01/21 [Adult One Daily Multivitamin] potassium 99 mg PO BID 07/01/21 Allergies Allergy/AdvReac Type Severity Reaction Status Date / Time No Known Allergies Allergy Verified 06/28/21 21:17 Review of Systems Review of Systems: All systems reviewed & are unremarkable except as noted in HPI and below Constitutional: Constitutional: Denies body ache(s), Denies chills, Denies excessive sweating, Denies fatigue, Denies fever(s), Denies headache(s), Denies lethargy, Denies malaise, Denies weakness and Denies weight loss Eyes: Eyes: Denies blurry vision, Denies change in vision and Denies loss of vision ENT: Denies dizziness, Denies ear discharge, Denies headache(s), Denies lip swelling, Denies epistaxis, Denies nasal congestion, Denies neck pain, Denies throat swelling and Denies tongue swelling Cardiovascular: Cardiovascular: Denies diaphoresis, Denies edema, Denies irregular heart rhythm, Denies lightheadedness, Denies palpitations, Denies dyspnea and Denies dyspnea on exertion Respiratory: Respiratory: Denies chest congestion, Denies cough, Denies hemoptysis, Denies dyspnea and Denies dyspnea on exertion Gastrointestinal: Gastrointestinal: Denies abdominal pain, Denies melena, Denies hematochezia, Denies diarrhea, Denies nausea, Denies vomiting and Denies hematemesis Musculoskeletal: Musculoskeletal: Denies abnormal gait, Denies deformity, Denies joint swelling, Denies limited range of motion, Denies neck pain and Denies numbness Neurologic: Denies Abnormal speech present, Denies abnormal gait, Denies confusion, Denies dizziness, Denies headache(s), Denies focal weakness, Denies loss of vision, Denies numbness, Denies Other visual disturbances, Denies Sensory deficit (Neuro) and Denies weakness Psychiatric: Psychiatric: Denies confusion, Denies depression, Denies auditory hallucinations, Denies homicidal ideation and Denies suicidal ideation Endocrine: Endocrine: Denies cold intolerance, Denies excessive sweating, Denies fatigue, Denies heat intolerance and Denies palpitations Hematologic/Lymphatic: Hematologic/Lymphatic: Denies easy bleeding and Denies easy bruising Allergic/Immunologic: Allergic/Immunologic: Denies lip swelling, Denies throat swelling and Denies tongue swelling PMFSH Past Medical History Medical History Arthritis CVA (cerebral vascular accident) (04/2021) Diabetes (~02/2020) Endometrial cancer (~2015) Treated with hysterectomy for by radiation and chemotherapy Hypercholesterolemia Hypertension
[2021-07-19 08:51] LABS: Alanine Aminotransferase 26 U/L (4-35); Albumin Level 4.3 g/dL (3.5-5.1); Alkaline Phosphatase 73 U/L (38-126); Anion Gap 11 mmol/L (8-16); Aspartate Amino Transferase 33 U/L (14-36); Bilirubin,Total 0.4 mg/dL (0.2-1.3); Blood Urea Nitrogen 35 mg/dL (7-17); Calcium 9.8 mg/dL (8.4-10.2); Carbon Dioxide 26 mmol/L (22-30); Chloride 100 mmol/L (98-107); Estimated CRCL calculation 26 ml/min; Estimated Glomerular Filt Rate 31; Glucose 150 mg/dL (65-110); Potassium 3.8 mmol/L (3.4-5.0); Sodium 137 mmol/L (137-145)
[2021-07-19 08:54] LABS: INR 1.3; Prothrombin Time 15.8 Seconds (11.1-14.7)
[2021-07-19] MEDS: dilTIAZem HCl INJ 25 MG/5 ML VIAL 20 MG IV PUSH (08:59)
[2021-07-19] MEDS: LACTATED RINGERS 1,000 ML 999 ML IV CONT (08:59)
[2021-07-19] MEDS: ASPIRIN 81 MG CHEWABLE TABLET 324 MG PO (08:59)
--- NOTE | 2021-07-19 09:02 | PC.NURSE ---
pt had 81mg of aspirin this morning. gave pt 243mg of aspirin chewable for a total of 324mg.
[2021-07-19 09:05] LABS: Troponin I 0.017 ng/mL (0.000-0.034)
[2021-07-19] MEDS: dilTIAZem 100 MG/100 ML 100 MG/100 ML BAG IV CONT (11:06)
--- NOTE | 2021-07-19 12:45 | PM.IMHP ---
H&P: HPI History of Present Illness Date/Time: 07/19/21 12:45 Chief Complaint: Chest pain. Narrative: This is a 76-year-old female with history of stroke, hypertension, hyperlipidemia, and type 2 diabetes mellitus who presented to the emergency department earlier today via private vehicle from home for evaluation of chest pain. She is a fair historian but seems a bit forgetful and thus some of the following is supplemented via a review of her electronic medical records as well as discussions with her at bedside, with the patient's permission. She apparently has not been feeling well for several days with vague low chest/upper abdominal discomfort which she has a difficult time describing. It seems to be centered in the middle of her lower chest and radiates diffusely throughout the upper abdomen. It has been intermittent since the onset and she has not noticed any significant aggravating factors nor has she noticed any patterns as to when it occurs. Associated symptoms include nausea and several episodes of emesis Monday night in addition to an increase in belching. She has been taking Tums and Pepto-Bismol at home with some relief and she has not vomited since early yesterday morning. No history of gallbladder disease, pancreatitis, gastritis, or peptic ulcers. On arrival to the emergency department she was found to be in atrial fibrillation with rapid ventricular response which is a new diagnosis for her. She is not symptomatic and she specifically denies feelings of racing heart, fluttering, and palpitations. It is noted that she was given tPA and transferred to [facility] in April 2021 for a CVA and indicates that she wore an event monitor for a couple of weeks thereafter but they assume everything checked out okay as nobody ever spoke with them about the results. She has no known history of coronary artery disease and denies exertional chest pain, shortness of breath, syncope, near syncope, and diaphoresis. She has no known history of sleep apnea however she is supposed to be tested for such as her reports that she snores heavily. At the time my evaluation she has no specific complaints and she is not currently experiencing any chest or abdominal discomfort. Review of Systems Review of Systems: Twelve systems were reviewed and are negative except for as per HPI. ON LICENSE OF [facility] Past Medical History Medical History (Updated 07/19/21 @ 13:09 by Shaila Carpenter PA-C) Arthritis Cerebrovascular accident (04/2021) Patient received tPA. Chronic anemia Chronic anticoagulation On apixaban since CVA in April 2021. Endometrial cancer (~2015) Status post hysterectomy and chemoradiation. Hypercholesterolemia Hypertension Type 2 diabetes mellitus Surgical History Surgical History (Updated 07/19/21 @ 12:51 by Shaila Carpenter PA-C) History of appendectomy History of hysterectomy (2015) History of total right knee replacement (2013) Status post cataract extraction of both eyes with insertion of intraocular lens Family History Family History Other Unknown family medical history Social History Social History (Updated 07/19/21 @ 22:12 by Shaila Carpenter PA-C) Social History: Surrogate decision maker: Brian Perkins, spouse. Code status: Full code. Smoking status: Never smoker Alcohol intake: never Substance use: never Substance use type: does not use Meds Home Medications and Allergies Home Medications Medication Instructions Recorded Confirmed Type B-complex with vitamin C [Super B 1 tablet PO DAILY 02/14/20 07/19/21 History Complex-Vitamin C] alpha lipoic acid 200 mg PO BID 02/14/20 07/19/21 History etodolac 400 mg PO BID 02/14/20 07/19/21 History losartan-hydrochlorothiazide 1 tablet PO BID 02/14/20 07/19/21 History metformin 500 mg PO DAILY 02/14/20 07/19/21 History montelukast [Singulair] 10 mg PO DAILY
[2021-07-19 13:00] LABS: Troponin I 0.015 ng/mL (0.000-0.034)
--- NOTE | 2021-07-19 13:10 | ECHO_ITS ---
Patient Info Name: Kenyatta Perkins Age: 76 years : 1945 Gender: Female Ht: 61 in Wt: 179 lbs BSA: 1.91 m2 HR: 124 bpm BP: 149 / 58 mmHg Heart Rhythm: Atrial Fibrillation Technical Quality: Fair Exam Date: 07/19/2021 2:06 PM Exam Location: [facility] Patient Status: Outpatient Admit Date: 07/19/2021 Staff Ordering Physician: Shaila Carpenter PA-C Collar Setter Overlock: Sylwia Rodgres RDCS Attending Provider: Mars Kowalski MD Referring Physician: Jayden BRICEÑO; Exam Type: CA echo dop color flow w con Study Info Indications - chest pain, new onset atrial fibrillation, htn Complete two-dimensional, color flow and Doppler transthoracic echocardiogram is performed. Summary 1. Complete two-dimensional, color flow and Doppler transthoracic echocardiogram is performed. 2. Normal LV size, moderate LVH. Overall hyperdynamic LV systolic function, EF more than 70%. Anteroseptum appears mildly hypokinetic. Diastolic dysfunction is present with elevated left atrial pressures. Mild left enlargement. Mild mitral annular calcification, no significant MR. Mild aortic valve sclerosis, no significant stenosis. Unable to assess RVSP due to inadequate TR jet. Left Ventricle Left ventricular chamber dimension is normal. Left ventricular systolic function is hyperdynamic, estimated at >70%. There is moderately increased left ventricular wall thickness. The left ventricular diastolic function is abnormal. Right Ventricle Right ventricular chamber dimension is normal. Right ventricular systolic function is normal. Left Atria Left atrial chamber dimension is mildly enlarged. Right Atria Right atrial chamber dimension is normal. Aortic Valve There is mild aortic valve sclerosis. There is mild aortic valve stenosis with a peak velocity of 136.11 cm/s, mean gradient of 2 mmHg, and aortic valve area of 3.35 cm2. Pulmonic Valve The pulmonic valve is not well visualized. Mitral Valve There is no mitral valve regurgitation. There is mild mitral valve calcification. Tricuspid Valve The tricuspid valve leaflets are normal. Pericardium/Pleural There is trivial pericardial effusion. Inferior Vena Cava Normal inferior vena cava with >50% collapse upon inspiration consistent with normal right atrial pressure, 8 mmHg. Aorta The aortic root size at the sinus of Valsalva is normal. Left Ventricular Outflow Tract Name Value Normal LVOT 2D LVOT Diameter 1.98 cm LVOT Doppler LVOT Peak Gradient 2 mmHg LVOT Mean Gradient 1 mmHg LVOT VTI 14.58 cm LVOT VTI/AV VTI Ratio 1.09 LVOT Stroke Volume 44.69 ml LVOT CO 1.97 l/min LVOT CI 1.03 L/min/m2 Pulmonic Valve Name Value Normal RVOT Doppler
[2021-07-19 13:43] LABS: Creatine Kinase 38 U/L (30-135)
[2021-07-19 15:18] LABS: Troponin I 0.013 ng/mL (0.000-0.034)
[2021-07-19 15:19] LABS: SARS-CoV-2 RNA PCR Negative
[2021-07-19 15:50] LABS: Hemoglobin A1C 6.2 % (<5.7)
[2021-07-19 17:42] LABS: Glucose Point of Care 162 mg/dl (65-105)
[2021-07-19] MEDS: dilTIAZem 100 MG/100 ML 100 MG/100 ML BAG 10 MG IV CONT (20:24)
[2021-07-19 21:20] LABS: Glucose Point of Care 151 mg/dl (65-105)
[2021-07-19] MEDS: APIXABAN 5 MG TABLET PO (23:22)
[2021-07-19] MEDS: SODIUM CHLORIDE 0.9% IV 1,000 ML 100 ML IV CONT (23:23)
[2021-07-20] VITALS (14 sets, daily range): BP systolic 118–136; BP diastolic 54–88; PULSE 76–141; RESP 16–26; TEMP 36–36.6; O2SAT 94–100
[2021-07-20 05:39] LABS: Anion Gap 7 mmol/L (8-16); Blood Urea Nitrogen 32 mg/dL (7-17); Calcium 9.2 mg/dL (8.4-10.2); Carbon Dioxide 28 mmol/L (22-30); Chloride 103 mmol/L (98-107); Cholesterol 121 mg/dL (0-200); Estimated CRCL calculation 32 ml/min; Estimated Glomerular Filt Rate 40; Glucose 127 mg/dL (65-110); HDL Direct 39 mg/dL; Potassium 3.8 mmol/L (3.4-5.0); Sodium 138 mmol/L (137-145); Triglycerides 141 mg/dL (<150)
[2021-07-20 05:42] LABS: Alanine Aminotransferase 25 U/L (4-35); Albumin Level 3.7 g/dL (3.5-5.1); Alkaline Phosphatase 73 U/L (38-126); Aspartate Amino Transferase 29 U/L (14-36); Bilirubin,Total 0.3 mg/dL (0.2-1.3); Lipase 291 U/L (23-300); Magnesium 1.7 mg/dL (1.6-2.3)
[2021-07-20 05:50] LABS: LDL Cholesterol Direct 57 mg/dL
[2021-07-20 06:17] LABS: Hemoglobin A1C 6.2 % (<5.7)
[2021-07-20] MEDS: dilTIAZem 100 MG/100 ML 100 MG/100 ML BAG 10 MG IV CONT (06:38)
[2021-07-20 08:36] LABS: Glucose Point of Care 123 mg/dl (65-105)
[2021-07-20] MEDS: PANTOPRAZOLE 40 MG TABLET PO ×2 (09:00→18:20)
[2021-07-20] MEDS: ATORVASTATIN 10 MG TABLET PO (09:00)
[2021-07-20] MEDS: MAGNESIUM OXIDE 400 MG TABLET PO (09:00)
[2021-07-20] MEDS: CYCLOBENZAPRINE HCL 5 MG TABLET PO (09:00)
[2021-07-20] MEDS: THERAPEUTIC MULTIVITAMINS/MINERALS TAB (*BKC) 1 TABLET PO (09:01)
[2021-07-20] MEDS: VITAMIN B COMPLEX/VIT C CAPSULE 1 EACH PO (09:01)
[2021-07-20] MEDS: APIXABAN 5 MG TABLET PO ×2 (09:01→19:52)
[2021-07-20] MEDS: MONTELUKAST SODIUM 10 MG TABLET PO (09:01)
--- NOTE | 2021-07-20 09:45 | PM.CNCAR ---
Assessment and Plan Assessment and plan (1) Atrial fibrillation with rapid ventricular response: Code(s): I48.91 - Unspecified atrial fibrillation Status: Acute Assessment and Plan: 76-year-old female with hypertension, type 2 diabetes mellitus, history of CVA treated with lytic treatment, dyslipidemia on statin. Patient admitted to the hospital with 10 day history of abdominal pain associated with nausea and vomiting. Liver enzymes, lipase within normal limits. Patient found to be in atrial fibrillation with RVR. -workup for abdominal pain as per primary team. Consider Gastroenterology evaluation. Abdominal ultrasound and hepatobiliary scan unremarkable. Mesenteric ischemia cannot be ruled out. -patient is currently in atrial fibrillation with RVR with heart rates 110s. She was previously on IV diltiazem which was discontinued while patient was in the Radiology Department. Instructed staff to resume IV diltiazem and monitor heart rate. Bridge IV diltiazem with p.o. diltiazem plus/minus beta-tracie as necessary for rate control. -patient is already on anticoagulation with apixaban which will be continued. -echocardiogram showed normal LV systolic function. (2) Abdominal pain: Code(s): R10.9 - Unspecified abdominal pain Status: Acute Assessment and Plan: Evaluation and management as per primary team. History of Present Illness History of Present Illness Consult date/time: 07/20/21 09:45 DATE OF CONSULT: 07/20/2021 REASON FOR CONSULT: New onset atrial fibrillation, chest pain REQUESTING PHYSICIAN: Brian Harrison MD CHIEF COMPLAINT: Abdominal pain, nausea, vomiting HPI: 76-year-old female with hypertension, type 2 diabetes mellitus, history of CVA treated with lytic treatment, dyslipidemia on statin. Patient presented to [facility] Emergency Room on 07/19/2021 with complaints of abdominal pain that started about 10 days ago. Patient describes her pain as somebody sitting on the abdomen. She said that she had few episodes of nausea/vomiting without hematemesis. She denies any constipation, diarrhea or hematochezia. Denies any fever chills. She denies any known prior cardiac history. EKG on presentation which I personally evaluated showed atrial fibrillation with RVR, ventricular rate 143 beats per minute, LVH with secondary ST-T abnormality versus ischemia. Patient has been on IV diltiazem with improvement in the heart rate. Troponin x3 negative. TSH normal. Chest x-ray did not show any acute cardiopulmonary findings. Abdominal ultrasound and hepatobiliary scan unremarkable. Liver enzymes, lipase within normal limits. Echocardiogram on my personal evaluation showed LVH, overall preserved LV systolic function. Patient has history of CVA, and was treated with ?lytic treatment at outside facility in April 2021. Patient does not recall being discharged on ambulatory court monitor. Reason For Visit: New onset atrial fib RVR, chest pain Review of Systems Review of Systems: General: Negative for fever, chills, fatigue Psychological: Negative for anxiety, depression Ophthalmic: negative for loss of vision ENT: Negative for epistaxis, headaches Allergy and immunology: Negative for hives, nasal congestion Hematologic and lymphatic: Negative for overt bleeding problems Endocrine: Negative for hot flashes, palpitations Respiratory: Negative for cough, hemoptysis Cardiovascular: Negative for chest pain, shortness of breath, leg swelling, palpitations, dizziness, syncope Gastrointestinal: Positive for abdominal pain, nausea and vomiting Musculoskeletal: Negative for myalgia, joint pains Neurological: History of CVA speech impairment which has improved Dermatological: Negative for rash, skin discoloration PMF Past Medical History Medical History (Updated 07/20/21 @ 11:58 by Paul De Leon MD) Arthritis Cerebrovascular accident (04/2021) Patient received tPA. Chronic anemia
[2021-07-20 12:25] LABS: Glucose Point of Care 106 mg/dl (65-105)
--- NOTE | 2021-07-20 13:17 | PM.IMPN ---
Progress Note: A&P Assessment and Plan (1) Atrial fibrillation with rapid ventricular response: Code(s): I48.91 - Unspecified atrial fibrillation Status: Acute Assessment and Plan: Cardiology consult Echo Cardizem drip will be switched to oral Cardizem. (2) Chronic anticoagulation: Code(s): Z79.01 - [facility] (current) use of anticoagulants Status: Acute Assessment and Plan: Continue apixaban. (3) Chest pain: Qualifiers: Chest pain type: unspecified Qualified Code(s): R07.9 - Chest pain, unspecified Code(s): R07.9 - Chest pain, unspecified Status: Acute Assessment and Plan: Patient denies chest pain patient complains of abdominal pain generalized no aggravating or relieving factors ultrasound abdomen ultrasound kidney HIDA scan was negative Will get GI eval concern for chronic bowel ischemia. (4) Type 2 diabetes mellitus: Code(s): E11.9 - Type 2 diabetes mellitus without complications Status: Acute Assessment and Plan: Hold metformin as her creatinine is elevated from baseline. Continue sliding scale insulin, Accu-Cheks, and hypoglycemic protocol. Check hemoglobin A1c. (5) Hypertension: Code(s): I10 - Essential (primary) hypertension Status: Chronic Assessment and Plan: Blood pressures were reviewed and they are stable. Her antihypertensives will be reviewed and resumed as appropriate. (6) Renal failure: Code(s): N19 - Unspecified kidney failure Status: Acute Assessment and Plan: Creatinine is elevated from baseline. May very well be related to mild dehydration given vomiting. She will be cautiously hydrated overnight and we will repeat renal function in a.m. (7) Chronic anemia: Code(s): D64.9 - Anemia, unspecified Status: Acute Assessment and Plan: Hemoglobin and hematocrit are stable on review of previous labs. Subjective Date/time seen: 07/20/21 13:17 Interval history: Patient seen and examined 76 years old female with past medical history of hyperlipidemia stroke presented to the hospital with abdominal pain associated with nausea ultrasound of the abdomen HIDA scan was negative also was found to have AFib with RVR cardiology was consulted treated with Cardizem drip Patient still complaining of abdominal pain Patient denies fever headache chest pain shortness of breath I am seeing the patient for abdominal pain Exam Narrative: Alert Chest no wheeze crackles Abdomen nontender nondistended CVS S1 + S2 Lower negative extremity edema Objective Data Vital Signs Vital Signs: Vital Signs - 24 hr 07/19/21 13:34 07/19/21 13:45 07/19/21 14:00 Temperature Pulse Rate 117 H 105 H 114 H Respiratory Rate 8 L 25 H 23 H Blood Pressure Pulse Oximetry 100 07/19/21 14:18 07/19/21 14:37 07/19/21 14:54 Temperature Pulse Rate 110 H 116 H 115 H Respiratory Rate 22 H 22 H 21 H Blood Pressure Pulse Oximetry 99 99 07/19/21 15:09 07/19/21 15:36 07/19/21 15:45 Temperature Pulse Rate 109 H 111 H 112 H Respiratory Rate 21 H 21 H 19 Blood Pressure 128/68 Pulse Oximetry 98 98 96 07/19/21 16:08 07/19/21 16:40 07/19/21 16:45 Temperature Pulse Rate 98 102 H 83 Respiratory Rate 20 20 20 Blood Pressure Pulse Oximetry 98 98 99 07/19/21 16:46 07/19/21 17:00 07/19/21 17:55 Temperature 97.3 F L Pulse Rate 88 87 93 Respiratory Rate 20 20 18 Blood Pressure 131/58 L 116/74 Pulse Oximetry 99 99 99 07/19/21 20:00 07/19/21 20:24 07/19/21 22:00 Temperature 96.8 F L Pulse Rate 87 90 90 Respiratory Rate 16 Blood Pressure 117/58 L Pulse Oximetry 99 07/19/21 23:44 07/19/21 23:56 07/20/21 02:00 Temperature 97.0 F L Pulse Rate 86 96 88 Respiratory Rate 16 16 Blood Pressure 123/67 Pulse Oximetry 99 98 07/20/21 04:00 07/20/21 05:25 07/20/21 06:38 Temperature 96.8 F L Pulse Rate 82 88
[2021-07-20 15:31] LABS: Basophils Percent Auto 0.4 % (0.2-1.2); Eosinophils Absolute Auto 0.1 K/mm3 (0-0.3); Eosinophils Percent Auto 2.6 % (0-4.4); Hematocrit 30.4 % (37.0-47.0); Immature Granulocyte Absolute 0.03 K/mm3 (0.00-0.031); Immature Granulocyte Percent A 0.7 % (0-0.5); Lymphocytes Absolute Auto 0.97 K/mm3 (0.9-3.2); Lymphocytes Percent Auto 21.3 % (18.3-44.2); Mean Corpuscular HGB Conc 32.9 g/dl (32-36); Mean Corpuscular Hemoglobin 31.4 pg (26-34); Mean Corpuscular Volume 95.6 fl (80-100); Mean Platelet Volume 10.5 fl (7.4-10.4); Monocytes Absolute Auto 0.6 K/mm3 (0.1-0.6); Monocytes Percent Auto 13.6 % (2.6-8.5); Neutrophils Absolute Auto 2.8 K/mm3 (1.3-6.7); Neutrophils Percent Auto 61.4 % (45.5-73.1); Platelet Count Result 226 k/mm3 (150-375); Red Blood Count 3.18 M/mm3 (4.2-5.4); Red Cell Distribution Width 13.6 % (11.5-14.5); White Blood Count 4.6 K/mm3 (4.5-10.0)
[2021-07-20 15:43] LABS: Alanine Aminotransferase 26 U/L (4-35); Albumin Level 3.7 g/dL (3.5-5.1); Alkaline Phosphatase 63 U/L (38-126); Anion Gap 7 mmol/L (8-16); Aspartate Amino Transferase 29 U/L (14-36); Bilirubin,Total 0.3 mg/dL (0.2-1.3); Blood Urea Nitrogen 25 mg/dL (7-17); Calcium 9.1 mg/dL (8.4-10.2); Carbon Dioxide 28 mmol/L (22-30); Chloride 102 mmol/L (98-107); Estimated CRCL calculation 34 ml/min; Estimated Glomerular Filt Rate 44; Glucose 139 mg/dL (65-110); Potassium 3.6 mmol/L (3.4-5.0); Sodium 137 mmol/L (137-145)
--- NOTE | 2021-07-20 16:17 | WPDGICN ---
Assessment and Plan Assessment and plan (1) Abdominal pain: Code(s): R10.9 - Unspecified abdominal pain Status: Acute Assessment and Plan: the pain began 10 days ago. She states that it was present until last night. She is concerned that she will need something for the pain if it returns when she goes home. I told her that we will try to determine the etiology of her symptoms so that we can give her appropriate therapy. I told her that we will probably perform EGD in the morning. I will hold the morning dose of Eliquis. the question of possible mesenteric ischemia has been brought up. I did not detect a meal related pattern to the pain but I will obtain lactic acid level to make certain that is not elevated. (2) Chronic anemia: Code(s): D64.9 - Anemia, unspecified Status: Acute Assessment and Plan: Hemoglobin is 10. It was 11 a few weeks ago (3) Atrial fibrillation with rapid ventricular response: Code(s): I48.91 - Unspecified atrial fibrillation Status: Acute Assessment and Plan: Her rate is being controlled with medication. She has been started on Eliquis. GI Consult Note Consult date/time: 07/20/21 16:17 HPI: Kenyatta Perkins is a 76 year old female who was admitted yesterday with complaints of abdominal pain and chest pain. She was found to have atrial fibrillation with a rapid response. She has been started on diltiazem drip. She states that the pain began 10 days ago. It seems to begin in her flanks and radiates across the abdomen. It is quite intense when present and feels as though she is being squeezed hard by a bear. at this time is not present. She was nauseated and did vomit once over the weekend but has not vomited today. She is in fact tolerating regular food today. She does not believe that she has had abdominal pain. She has no history of ulcers. Although she suffers from arthritis she is not on NSAIDs. She states that she is having pain in her left knee and she was referred by Dr. Rosa to a pain specialist for injection but apparently that appointment was canceled at the last minute. She knows that she has had a colonoscopy. It probably has been several years but she does not believe that she has ever had colon diseases. she denies recent diarrhea or blood in her stools. She has not had a fever Review of Systems Review of Systems: All systems reviewed & are unremarkable except as noted in HPI and below PMFSH Past Medical History Medical History Arthritis Cerebrovascular accident (04/2021) Patient received tPA. Chronic anemia Chronic anticoagulation On apixaban since CVA in April 2021. Endometrial cancer (~2015) Status post hysterectomy and chemoradiation. Hypercholesterolemia Hypertension Type 2 diabetes mellitus Surgical History Surgical History History of appendectomy History of hysterectomy (2015) History of total right knee replacement (2013) Status post cataract extraction of both eyes with insertion of intraocular lens Family History Family History Other Unknown family medical history Social History Social History Social History: Surrogate decision maker: Brian Perkins, spouse. Code status: Full code. Smoking status: Never smoker Alcohol intake: never Substance use: never Substance use type: does not use Meds Home Medications and Allergies Home Medications Medication Instructions Recorded Confirmed Type B-complex with vitamin C [Super B 1 tablet PO DAILY 02/14/20 07/19/21 History Complex-Vitamin C] alpha lipoic acid 200 mg PO BID 02/14/20 07/19/21 History etodolac 400 mg PO BID 02/14/20 07/19/21 History losartan-hydrochlorothiazide 1 tablet PO BID 02/14/20
[2021-07-20 16:25] LABS: Glucose Point of Care 158 mg/dl (65-105)
[2021-07-20 17:11] LABS: Add Urine Microscopic? YES; Appearance Urine Clear (Clear); Bacteria Urine Trace /hpf; Bilirubin Urine Negative (Negative); Blood Urine Negative (Negative); Color Urine Yellow (Yellow); Glucose Urine UA Negative (Negative); Ketones Urine Negative (Negative); Leukocyte Esterase Ur 2+ LEU/UL (Negative); Nitrate Urine Negative (Negative); Protein Urine Negative (Negative); RBC Urine 0-2 /hpf (0-2); Squamous Epithelial Cell Urine Occasional /hpf (Few); Urobilinogen Urine Negative mg/dL (<2.0); WBC Urine 31-50 /hpf
[2021-07-20 17:49] LABS: Lactic Acid Reflex 1.4 mmol/L (0.7-2.1)
[2021-07-20] MEDS: dilTIAZem 100 MG/100 ML 100 MG/100 ML BAG IV CONT (19:59)
[2021-07-20 21:02] LABS: Glucose Point of Care 154 mg/dl (65-105)
--- NOTE | 2021-07-20 23:03 | PCRCNOTE ---
Pt states that she already has an outpatient sleep study scheduled at [place] in the coming week and would prefer not to do one here. Nurse was notified.
[2021-07-21] VITALS (18 sets, daily range): BP systolic 114–146; BP diastolic 50–91; PULSE 51–120; RESP 16–22; TEMP 35.9–36.4; O2SAT 96–100
[2021-07-21 05:37] LABS: Basophils Percent Auto 0.2 % (0.2-1.2); Eosinophils Absolute Auto 0.1 K/mm3 (0-0.3); Eosinophils Percent Auto 3.1 % (0-4.4); Hematocrit 30.6 % (37.0-47.0); Immature Granulocyte Absolute 0.03 K/mm3 (0.00-0.031); Immature Granulocyte Percent A 0.7 % (0-0.5); Lymphocytes Absolute Auto 1.01 K/mm3 (0.9-3.2); Lymphocytes Percent Auto 22.1 % (18.3-44.2); Mean Corpuscular HGB Conc 32.7 g/dl (32-36); Mean Corpuscular Hemoglobin 31.1 pg (26-34); Mean Platelet Volume 10.4 fl (7.4-10.4); Monocytes Absolute Auto 0.6 K/mm3 (0.1-0.6); Monocytes Percent Auto 13.1 % (2.6-8.5); Neutrophils Absolute Auto 2.8 K/mm3 (1.3-6.7); Neutrophils Percent Auto 60.8 % (45.5-73.1); Platelet Count Result 225 k/mm3 (150-375); Red Blood Count 3.22 M/mm3 (4.2-5.4); Red Cell Distribution Width 13.4 % (11.5-14.5); White Blood Count 4.6 K/mm3 (4.5-10.0)
[2021-07-21 05:44] LABS: Alanine Aminotransferase 25 U/L (4-35); Albumin Level 3.7 g/dL (3.5-5.1); Alkaline Phosphatase 67 U/L (38-126); Anion Gap 6 mmol/L (8-16); Aspartate Amino Transferase 27 U/L (14-36); Bilirubin,Total 0.3 mg/dL (0.2-1.3); Blood Urea Nitrogen 21 mg/dL (7-17); Calcium 9.3 mg/dL (8.4-10.2); Carbon Dioxide 29 mmol/L (22-30); Chloride 102 mmol/L (98-107); Estimated CRCL calculation 36 ml/min; Estimated Glomerular Filt Rate 48; Glucose 138 mg/dL (65-110); Potassium 3.8 mmol/L (3.4-5.0); Sodium 137 mmol/L (137-145)
[2021-07-21 07:38] LABS: Glucose Point of Care 143 mg/dl (65-105)
--- NOTE | 2021-07-21 08:58 | P.CDI_ITS ---
CDI Query Clarification Request -07/19 creatinine 1.60 07/21 creatinine 1.10 -Renal failure and may very well be related to mild dehydration has been documented Please further specify acuity of renal failure: * Acute * Chronic * Acute on chronic * Unable to determine * Ruled out
--- NOTE | 2021-07-21 08:58 | WPDCDIQUERY2 ---
CDI Query Clarification Request -07/19 creatinine 1.60 07/21 creatinine 1.10 -Renal failure and may very well be related to mild dehydration has been documented Please further specify acuity of renal failure: Acute Chronic Acute on chronic Unable to determine Ruled out
--- NOTE | 2021-07-21 11:30 | PM.IMPN ---
Progress Note: A&P Assessment and Plan (1) Atrial fibrillation with rapid ventricular response: Code(s): I48.91 - Unspecified atrial fibrillation Status: Acute Assessment and Plan: Cardiology consult Echo Heidy zepeda cardiology following (2) Chronic anticoagulation: Code(s): Z79.01 - technician terminal and repeater (current) use of anticoagulants Status: Acute Assessment and Plan: Continue apixaban. (3) Chest pain: Qualifiers: Chest pain type: unspecified Qualified Code(s): R07.9 - Chest pain, unspecified Code(s): R07.9 - Chest pain, unspecified Status: Acute Assessment and Plan: Patient denies chest pain patient complains of abdominal pain generalized no aggravating or relieving factors ultrasound abdomen ultrasound kidney HIDA scan was negative GI evaluation pending plan for EGD. (4) Type 2 diabetes mellitus: Code(s): E11.9 - Type 2 diabetes mellitus without complications Status: Acute Assessment and Plan: Hold metformin as her creatinine is elevated from baseline. Continue sliding scale insulin, Accu-Cheks, and hypoglycemic protocol. Check hemoglobin A1c. (5) Hypertension: Code(s): I10 - Essential (primary) hypertension Status: Chronic Assessment and Plan: Blood pressures were reviewed and they are stable. Her antihypertensives will be reviewed and resumed as appropriate. (6) Renal failure: Code(s): N19 - Unspecified kidney failure Status: Acute Assessment and Plan: Creatinine is elevated from baseline. May very well be related to mild dehydration given vomiting. She will be cautiously hydrated overnight and we will repeat renal function in a.m. (7) Chronic anemia: Code(s): D64.9 - Anemia, unspecified Status: Acute Assessment and Plan: Hemoglobin and hematocrit are stable on review of previous labs. (8) UTI (urinary tract infection): Code(s): N39.0 - Urinary tract infection, site not specified Status: Acute Assessment and Plan: Present on admission give IV antibiotic follow culture results Subjective Date/time seen: 07/21/21 11:30 Interval history: Patient seen and examined 76 years old female with past medical history of hyperlipidemia stroke presented to the hospital with abdominal pain associated with nausea ultrasound of the abdomen HIDA scan was negative also was found to have AFib with RVR cardiology was consulted treated with Cardizem drip patient currently on Cardizem drip UA was abnormal shows possible UTI started on antibiotic pending culture GI evaluation appreciated plan for EGD today Patient denies fever headache chest pain shortness of breath I am seeing the patient for abdominal pain Exam Narrative: Alert Chest no wheeze crackles Abdomen nontender nondistended CVS S1 + S2 Lower negative extremity edema Objective Data Vital Signs Vital Signs: Vital Signs - 24 hr 07/20/21 12:00 07/20/21 14:00 07/20/21 16:00 Temperature 97.9 F 97.4 F L Pulse Rate 103 H 93 141 H Respiratory Rate 16 26 H Blood Pressure 135/79 128/79 Pulse Oximetry 99 94 07/20/21 18:00 07/20/21 20:00 07/20/21 22:00 Temperature 97.3 F L Pulse Rate 107 H 112 H 111 H Respiratory Rate 16 Blood Pressure 136/88 Pulse Oximetry 100 07/20/21 23:04 07/20/21 23:50 07/21/21 00:00 Temperature 96.9 F L Pulse Rate 114 H 104 H Respiratory Rate 16 Blood Pressure 136/65 Pulse Oximetry 97 99 07/21/21 02:00 07/21/21 04:00 07/21/21 06:00 Temperature 96.7 F L Pulse Rate 90 82 90 Respiratory Rate 16 Blood Pressure 135/72 Pulse Oximetry 100 07/21/21 07:51 07/21/21 08:00 07/21/21 11:01 Temperature 97.3 F L Pulse Rate 104 H 98 Respiratory Rate 20 Blood Pressure 142/74 H Pulse Oximetry 99 96 Intake/Output Intake/Output: Intake & Output 07/18/21 07/19/21 07/20/21 07/21/21 23:59 23:59 23:59 23:59 Intake
[2021-07-21] MEDS: LACTATED RINGERS 1,000 ML 150 ML IV CONT (12:10)
--- NOTE | 2021-07-21 12:49 | WPDANESEPPF ---
Anes - Initial Pre Proc Eval Procedure: Operation Date: 07/21/21 13:15 Proposed Procedures p Esophagogastroduodenoscopy - Bryant Looney MD Date/Time: 07/21/21 12:49 Surgeon: Mars Kowalski MD Pre Op Diagnosis: New onset atrial fib RVR, chest pain Patient Data Age: 76 Gender: F Height: 1.55 m Weight: 77.8 kg Last Vital Signs Temp 97.6 F 07/21/21 12:07 Pulse 104 H 07/21/21 12:07 Resp 18 07/21/21 12:07 BP 137/87 07/21/21 12:07 Pulse Ox 98 07/21/21 12:07 Allergies Allergy/AdvReac Type Severity Reaction Status Date / Time No Known Allergies Allergy Verified 07/21/21 12:03 Home Medications Medication Instructions Recorded Confirmed Type B-complex with vitamin C [Super B 1 tablet PO DAILY 02/14/20 07/19/21 History Complex-Vitamin C] alpha lipoic acid 200 mg PO BID 02/14/20 07/19/21 History etodolac 400 mg PO BID 02/14/20 07/19/21 History losartan-hydrochlorothiazide 1 tablet PO BID 02/14/20 07/19/21 History metformin 500 mg PO DAILY 02/14/20 07/19/21 History montelukast [Singulair] 10 mg PO DAILY 02/14/20 07/19/21 History omeprazole 20 mg PO BID 02/14/20 07/19/21 History cyclobenzaprine 5 mg PO DAILY 06/28/21 07/19/21 History Eliquis 5 mg PO Q12H 06/29/21 07/19/21 History atorvastatin 10 mg PO DAILY 07/01/21 07/19/21 History calcium carbonate-vitamin D2 1 tablet PO BID 07/01/21 07/19/21 History [Calcium + Vitamin D] cefuroxime axetil 500 mg PO Q12H #20 tablet 07/01/21 07/19/21 Rx magnesium 400 mg PO DAILY 07/01/21 07/19/21 History multivit with min-folic acid 1 tablet PO DAILY 07/01/21 07/19/21 History [Adult One Daily Multivitamin] potassium 99 mg PO Q12H 07/01/21 07/19/21 History Laboratory Tests 07/20/21 07/20/21 07/20/21 14:44 14:44 16:03 WBC 4.6 K/mm3 K/mm3 (4.5-10.0) RBC 3.18 M/mm3 L M/mm3 (4.2-5.4) Hgb 10.0 g/dL L g/dL (12.0-15.0) Hct 30.4 % L % (37.0-47.0) MCV 95.6 fl fl (80-100) MCH 31.4 pg pg (26-34) MCHC 32.9 g/dl g/dl (32-36) RDW 13.6 % % (11.5-14.5) Plt Count 226 k/mm3 k/mm3 (150-375) MPV 10.5 fl H fl (7.4-10.4) Immature Gran % (Auto) 0.7 % H % (0-0.5) Neut % (Auto) 61.4 % % (45.5-73.1) Lymph % (Auto) 21.3 % % (18.3-44.2) [place] % (Auto) 13.6 % H % (2.6-8.5) Eos % (Auto) 2.6 % % (0-4.4) Baso % (Auto) 0.4 % % (0.2-1.2) Lymph # (Auto) 0.97 K/mm3 K/mm3 (0.9-3.2) [place] # (Auto) 0.6 K/mm3 K/mm3 (0.1-0.6) Eos # (Auto) 0.1 K/mm3 K/mm3 (0-0.3) Baso # (Auto) 0.0 K/mm3 K/mm3 (0.0-0.1) Abs Immat Gran (auto) 0.03 K/mm3 K/mm3 (0.00-0.031) Absolute Neuts (auto) 2.8 K/mm3 K/mm3 (1.3-6.7) Absolute Nucleated RBC 0.0 K/mm3 K/mm3 (0.0-0.012) Nucleated RBC % 0.0 % % (0.0-0.2) Sodium 137 mmol/L mmol/L (137-145) Potassium 3.6 mmol/L mmol/L (3.4-5.0) Chloride 102 mmol/L mmol/L (98-107) Carbon Dioxide 28 mmol/L mmol/L (22-30) Anion Gap 7 mmol/L L mmol/L (8-16) BUN 25 mg/dL H mg/dL (7-17) Creatinine 1.20 mg/dL H mg/dL (0.7-1.0) Estim Creat Clear Calc 34 ml/min ml/min Estimated GFR 44 L (59 - ) Glucose 139 mg/dL H mg/dL (65-110) POC Capillary Glucose 158 mg/dl H mg/dl (65-105) Lactic Acid Calcium 9.1 mg/dL mg/dL (8.4-10.2) Total Bilirubin 0.3 mg/dL mg/dL (0.2-1.3) AST 29 U/L U/L (14-36) ALT 26 U/L U/L (4-35) Alkaline Phosphatase 63 U/L U/L (38-126) Total Protein 6.0 g/dL L g/dL (6.3-8.2) Albumin 3.7 g/dL g/dL (3.5-5.1) Urine Color Urine Appearance Urine pH Ur Specific Adams Urine Protein Urine Glucose (UA)
[2021-07-21] MEDS: VITAMIN B COMPLEX/VIT C CAPSULE 1 EACH PO (14:36)
[2021-07-21] MEDS: CYCLOBENZAPRINE HCL 5 MG TABLET PO (14:36)
[2021-07-21] MEDS: THERAPEUTIC MULTIVITAMINS/MINERALS TAB (*BKC) 1 TABLET PO (14:36)
[2021-07-21] MEDS: MAGNESIUM OXIDE 400 MG TABLET PO (14:37)
[2021-07-21] MEDS: PANTOPRAZOLE 40 MG TABLET PO ×2 (14:37→18:12)
[2021-07-21] MEDS: MONTELUKAST SODIUM 10 MG TABLET PO (14:37)
[2021-07-21] MEDS: ATORVASTATIN 10 MG TABLET PO (14:37)
--- NOTE | 2021-07-21 15:52 | PM.PNCARD ---
Progress Note: A&P Assessment and Plan (1) Atrial fibrillation with rapid ventricular response: Code(s): I48.91 - Unspecified atrial fibrillation Status: Acute Assessment and Plan: Patient found to be in atrial fibrillation with RVR on admission. The chronicity of this is unknown. She remains in atrial fibrillation with her rate reasonably controlled in the high 80s to 110. On telemetry review, her rate has been in the 130s to 140s at times. She is asymptomatic. Continue diltiazem drip at the current rate. Will shift her to p.o. diltiazem tomorrow. Can add beta-tracie if necessary for rate control. In regards to her anticoagulation, her Eliquis has been placed on hold due to melenic stools this morning. Continue to hold Eliquis for now since she had bloody stools as recently as this morning. (2) Abdominal pain: Code(s): R10.9 - Unspecified abdominal pain Status: Acute Assessment and Plan: Patient admitted to the hospital with 10 day history of abdominal pain associated with nausea and vomiting. Liver enzymes, lipase within normal limits. GI was consulted and she was taken for an EGD today which revealed gastric ulcer which was clipped. Further management per primary team and GI. Subjective Date/time seen: 07/21/21 15:52 Interval history: Cardiology follow-up for atrial fibrillation Date of service 07/21/2021: Patient is doing okay today. She is complaining of some mild lower abdominal discomfort. Denies any palpitations, shortness of breath, chest pain. She had some melena this morning and was taken to the GI lab for an EGD where she was found to have a gastric ulcer that was clipped. Review of Systems Review of Systems: All systems reviewed & are unremarkable except as noted in HPI and below Gastrointestinal: Gastrointestinal: Reports abdominal pain and Reports melena Exam Const: General: comfortable, no acute distress, alert and awake HENMT: Head: normal to inspection Mouth: Yes Normal oral and palatal mucosa present Eyes: General: appearance normal, both eyes and all related structures Pupils: Equal, round and reactive pupils present Neck: Neck: normal visual inspection Resp: Effort & Inspection: normal respiratory effort Auscultation: clear to auscultation bilaterally, no crackles and no rales Cardio: Rate: regular rate Rhythm: abnormal rhythm irregularly irregular GI: Inspection: normal to inspection Auscultation: normal bowel sounds Skin: General skin exam: normal color Neuro: General: patient oriented x3 Psych: Appearance: grossly normal Mental Status: mental status grossly normal Objective Data Vital Signs Vital Signs: Vital Signs - 24 hr 07/20/21 16:00 07/20/21 18:00 07/20/21 20:00 Temperature 36.3 C L 36.3 C L Pulse Rate 141 H 107 H 112 H Respiratory Rate 26 H 16 Blood Pressure 128/79 136/88 Pulse Oximetry 94 100 07/20/21 22:00 07/20/21 23:04 07/20/21 23:50 Temperature 36.1 C L Pulse Rate 111 H 114 H Respiratory Rate 16 Blood Pressure 136/65 Pulse Oximetry 97 99 07/21/21 00:00 07/21/21 02:00 07/21/21 04:00 Temperature 35.9 C L Pulse Rate 104 H 90 82 Respiratory Rate 16 Blood Pressure 135/72 Pulse Oximetry 100 07/21/21 06:00 07/21/21 07:51 07/21/21 08:00 Temperature 36.3 C L Pulse Rate 90 104 H 98 Respiratory Rate 20 Blood Pressure 142/74 H Pulse Oximetry 99 07/21/21 10:00 07/21/21 11:01 07/21/21 12:07 Temperature 36.4 C Pulse Rate 109 H 104 H Respiratory Rate 18 Blood Pressure 137/87 Pulse Oximetry 96 98 07/21/21 13:06 07/21/21 13:16 07/21/21 13:26 Temperature Pulse Rate 105 H 110 H 107 H Respiratory Rate 22 H 20 19 Blood Pressure 117/73 138/72 146/91 H Pulse Oximetry 99 99 98 Intake/Output Intake/Output: Intake & Output 07/18/21 07/19/21 07/20/21 07/21/21 23:59 23:59 23:59 23:59 Intake Total 1100 1220 500 Output Total 400 Balance 1100 1220 100
[2021-07-21 16:45] LABS: Glucose Point of Care 117 mg/dl (65-105)
[2021-07-21] MEDS: dilTIAZem 100 MG/100 ML 100 MG/100 ML BAG IV CONT (18:14)
[2021-07-21 21:16] LABS: Glucose Point of Care 144 mg/dl (65-105)
[2021-07-22] VITALS (12 sets, daily range): BP systolic 101–137; BP diastolic 44–78; PULSE 77–131; RESP 16–19; TEMP 36–36.9; O2SAT 99–100
[2021-07-22 05:06] LABS: Basophils Percent Auto 0.5 % (0.2-1.2); Eosinophils Absolute Auto 0.1 K/mm3 (0-0.3); Eosinophils Percent Auto 2.8 % (0-4.4); Hematocrit 30.8 % (37.0-47.0); Hemoglobin 10.1 g/dL (12.0-15.0); Immature Granulocyte Absolute 0.04 K/mm3 (0.00-0.031); Immature Granulocyte Percent A 0.9 % (0-0.5); Lymphocytes Absolute Auto 1.21 K/mm3 (0.9-3.2); Lymphocytes Percent Auto 27.8 % (18.3-44.2); Mean Corpuscular HGB Conc 32.8 g/dl (32-36); Mean Corpuscular Hemoglobin 31.5 pg (26-34); Mean Platelet Volume 10.4 fl (7.4-10.4); Monocytes Absolute Auto 0.5 K/mm3 (0.1-0.6); Monocytes Percent Auto 10.3 % (2.6-8.5); Neutrophils Absolute Auto 2.5 K/mm3 (1.3-6.7); Neutrophils Percent Auto 57.7 % (45.5-73.1); Platelet Count Result 211 k/mm3 (150-375); Red Blood Count 3.21 M/mm3 (4.2-5.4); Red Cell Distribution Width 13.3 % (11.5-14.5); White Blood Count 4.4 K/mm3 (4.5-10.0)
[2021-07-22 05:18] LABS: Alanine Aminotransferase 24 U/L (4-35); Albumin Level 3.5 g/dL (3.5-5.1); Alkaline Phosphatase 62 U/L (38-126); Anion Gap 7 mmol/L (8-16); Aspartate Amino Transferase 25 U/L (14-36); Bilirubin,Total 0.4 mg/dL (0.2-1.3); Blood Urea Nitrogen 19 mg/dL (7-17); Calcium 9.4 mg/dL (8.4-10.2); Carbon Dioxide 29 mmol/L (22-30); Chloride 100 mmol/L (98-107); Estimated CRCL calculation 33 ml/min; Estimated Glomerular Filt Rate 44; Glucose 133 mg/dL (65-110); Potassium 3.9 mmol/L (3.4-5.0); Sodium 136 mmol/L (137-145)
[2021-07-22] MEDS: ATORVASTATIN 10 MG TABLET PO (08:31)
[2021-07-22] MEDS: CYCLOBENZAPRINE HCL 5 MG TABLET PO (08:31)
[2021-07-22] MEDS: PANTOPRAZOLE 40 MG TABLET PO ×2 (08:31→17:39)
[2021-07-22] MEDS: THERAPEUTIC MULTIVITAMINS/MINERALS TAB (*BKC) 1 TABLET PO (08:39)
[2021-07-22] MEDS: MAGNESIUM OXIDE 400 MG TABLET PO (08:39)
[2021-07-22] MEDS: MONTELUKAST SODIUM 10 MG TABLET PO (08:39)
[2021-07-22] MEDS: VITAMIN B COMPLEX/VIT C CAPSULE 1 EACH PO (08:39)
[2021-07-22 08:46] LABS: Glucose Point of Care 143 mg/dl (65-105)
--- NOTE | 2021-07-22 08:51 | PM.PNCARD ---
Progress Note: A&P Assessment and Plan (1) Atrial fibrillation with rapid ventricular response: Code(s): I48.91 - Unspecified atrial fibrillation Status: Acute Assessment and Plan: Patient found to be in atrial fibrillation with RVR on admission. The chronicity of this is unknown. She remains in atrial fibrillation with her rate reasonably controlled currently in 90s to low 100s. She is asymptomatic. She is being transitioned from IV diltiazem to p.o. this morning Can add beta-tracie if necessary for rate control. Lopressor 5mg IV p.r.n. In regards to her anticoagulation, her Eliquis has been placed on hold due to GI bleeding. Continue to hold Eliquis for now since she had dark stools as recently as this morning. Will likely resume anticoagulation a couple of weeks with close monitoring H&H when it is resumed. Echo showed normal LV systolic function. (2) Abdominal pain: Code(s): R10.9 - Unspecified abdominal pain Status: Acute Assessment and Plan: Patient admitted to the hospital with 10 day history of abdominal pain associated with nausea and vomiting. Liver enzymes, lipase within normal limits. GI was consulted and she was taken for an EGD which revealed gastric ulcer which was clipped. Further management per primary team and GI. Subjective Date/time seen: 07/22/21 08:51 Interval history: Cardiology follow-up for atrial fibrillation Date of service 07/21/2021: Patient is doing okay today. She is complaining of some mild lower abdominal discomfort. Denies any palpitations, shortness of breath, chest pain. She had some melena this morning and was taken to the GI lab for an EGD where she was found to have a gastric ulcer that was clipped. Date of service 07/22/2021: Feeling better this morning. She is not have any complaints. She says that she had a small bowel movement this morning that was very dark. Remains in afib rate controlled in the low 100's. Review of Systems Review of Systems: All systems reviewed & are unremarkable except as noted in HPI and below Gastrointestinal: Gastrointestinal: Reports abdominal pain and Reports melena Exam Const: General: comfortable, no acute distress, alert and awake Orientation/consciousness: patient oriented x3 HENMT: Head: normal to inspection Mouth: Yes Normal oral and palatal mucosa present Eyes: General: appearance normal, both eyes and all related structures Pupils: Equal, round and reactive pupils present Neck: Neck: normal visual inspection Resp: Effort & Inspection: normal respiratory effort Auscultation: clear to auscultation bilaterally, no crackles and no rales Cardio: Rate: regular rate Rhythm: abnormal rhythm irregularly irregular GI: Inspection: normal to inspection Auscultation: normal bowel sounds Skin: General skin exam: normal color Neuro: General: patient oriented x3 Cranial nerves: Yes Equal, round and reactive pupils present Psych: Appearance: grossly normal Mental Status: mental status grossly normal Objective Data Vital Signs Vital Signs: Vital Signs - 24 hr 07/21/21 10:00 07/21/21 11:01 07/21/21 12:07 Temperature 36.4 C Pulse Rate 109 H 104 H Respiratory Rate 18 Blood Pressure 137/87 Pulse Oximetry 96 98 07/21/21 13:06 07/21/21 13:16 07/21/21 13:26 Temperature Pulse Rate 105 H 110 H 107 H Respiratory Rate 22 H 20 19 Blood Pressure 117/73 138/72 146/91 H Pulse Oximetry 99 99 98 07/21/21 14:00 07/21/21 16:00 07/21/21 17:02 Temperature 36.3 C L Pulse Rate 111 H 93 115 H Respiratory Rate 20 Blood Pressure 144/86 H Pulse Oximetry 100 07/21/21 18:00 07/21/21 20:00 07/21/21 21:54 Temperature 36.4 C L Pulse Rate 102 H 120 H 92 Respiratory Rate 16 Blood Pressure 114/50 L Pulse Oximetry 99 07/22/21 00:00 07/22/21 02:00 07/22/21 04:00 Temperature 36.0 C L 36.3 C L Pulse Rate 85 86 86 Respiratory Rate 16 16 Blood Pressure 101/55
--- NOTE | 2021-07-22 10:55 | WPDGIPROGNO ---
Progress Note: A&P Assessment and Plan (1) Abdominal pain: Code(s): R10.9 - Unspecified abdominal pain Status: Acute Assessment and Plan: 07/21 the pain began 10 days ago. She states that it was present until last night. She is concerned that she will need something for the pain if it returns when she goes home. I told her that we will try to determine the etiology of her symptoms so that we can give her appropriate therapy. I told her that we will probably perform EGD in the morning. I will hold the morning dose of Eliquis. the question of possible mesenteric ischemia has been brought up. I did not detect a meal related pattern to the pain but I will obtain lactic acid level to make certain that is not elevated. 07/22 Today her pain is primarily in her lower back (2) Chronic anemia: Code(s): D64.9 - Anemia, unspecified Status: Acute Assessment and Plan: Hemoglobin is 10. It was 11 a few weeks ago. This morning the hemoglobin is still 10.1 (3) Atrial fibrillation with rapid ventricular response: Code(s): I48.91 - Unspecified atrial fibrillation Status: Acute Assessment and Plan: Her rate is being controlled with medication. She has been started on Eliquis, which I held yesterday for EGD. I discussed this with the hospitalist. The plan is to restart her on it today. (4) Gastric ulcer with hemorrhage: Code(s): K25.4 - Chronic or unspecified gastric ulcer with hemorrhage Status: Acute Assessment and Plan: her hemoglobin is holding at 10. I explained her that the ulcer will take several weeks to heal. I told her that we will need to make sure that she stays off her NSAIDs, etodolac. H.pylori is negative. We will keep her on PPI b.i.d. and plan a repeat EGD in about 6 weeks to assess healing Subjective Date/time seen: 07/22/21 10:55 She states that she slept well. She states she does not have abdominal pain today. She says that the pain that she came in with, beginning in her flanks and going across the abdomen is now felt primarily in her lower back. She tolerated her diet last night. She has had a very small stool last evening which was still dark. Review of Systems Review of Systems: All systems reviewed & are unremarkable except as noted in HPI and below Exam Const: General: alert Orientation/consciousness: patient oriented x3 Resp: Auscultation: clear to auscultation bilaterally Cardio: Rhythm: regular rhythm GI: GI Palp: Yes Soft to palpation and No Tenderness to palpation present (GI) Auscultation: normal bowel sounds Neuro: General: patient oriented x3 Objective Data Vital Signs Vital Signs: Vital Signs - 24 hr 07/21/21 11:01 07/21/21 12:07 07/21/21 13:06 Temperature 36.4 C Pulse Rate 104 H 105 H Respiratory Rate 18 22 H Blood Pressure 137/87 117/73 Pulse Oximetry 96 98 99 07/21/21 13:16 07/21/21 13:26 07/21/21 14:00 Temperature Pulse Rate 110 H 107 H 111 H Respiratory Rate 20 19 Blood Pressure 138/72 146/91 H Pulse Oximetry 99 98 07/21/21 16:00 07/21/21 17:02 07/21/21 18:00 Temperature 36.3 C L Pulse Rate 93 115 H 102 H Respiratory Rate 20 Blood Pressure 144/86 H Pulse Oximetry 100 07/21/21 20:00 07/21/21 21:54 07/22/21 00:00 Temperature 36.4 C L 36.0 C L Pulse Rate 120 H 92 85 Respiratory Rate 16 16 Blood Pressure 114/50 L 101/55 L Pulse Oximetry 99 100 07/22/21 02:00 07/22/21 04:00 07/22/21 06:00 Temperature 36.3 C L Pulse Rate 86 86 78 Respiratory Rate 16 Blood Pressure 113/44 L Pulse Oximetry 100 07/22/21 08:00 07/22/21 10:00 Temperature 36.8 C Pulse Rate 98 101 H Respiratory Rate 16 Blood Pressure 136/67 Pulse Oximetry 99 Intake/Output Intake/Output: Intake & Output 07/19/21 07/20/21 07/21/21 07/22/21 23:59 23:59 23:59 23:59 Intake Total 1100 1220 1240 320 Output Total 400 Balance 1100 1220 840 320 Meds/Result
--- NOTE | 2021-07-22 11:22 | PM.IMPN ---
Progress Note: A&P Assessment and Plan (1) Atrial fibrillation with rapid ventricular response: Code(s): I48.91 - Unspecified atrial fibrillation Status: Acute Assessment and Plan: Cardiology consult Echo Status post Cardizem drip cardiology following (2) Chronic anticoagulation: Code(s): Z79.01 - [facility] (current) use of anticoagulants Status: Acute Assessment and Plan: Hold Eliquis due to melena (3) Chest pain: Qualifiers: Chest pain type: unspecified Qualified Code(s): R07.9 - Chest pain, unspecified Code(s): R07.9 - Chest pain, unspecified Status: Acute Assessment and Plan: Patient denies chest pain patient complains of abdominal pain generalized no aggravating or relieving factors ultrasound abdomen ultrasound kidney HIDA scan was negative Most likely related to gastric peptic ulcer and erosive gastritis seen on EGD continue PPI GI recommendation appreciated (4) Type 2 diabetes mellitus: Code(s): E11.9 - Type 2 diabetes mellitus without complications Status: Acute Assessment and Plan: Hold metformin as her creatinine is elevated from baseline. Continue sliding scale insulin, Accu-Cheks, and hypoglycemic protocol. (5) Hypertension: Code(s): I10 - Essential (primary) hypertension Status: Chronic Assessment and Plan: Blood pressures were reviewed and they are stable. Her antihypertensives will be reviewed and resumed as appropriate. (6) Renal failure: Code(s): N19 - Unspecified kidney failure Status: Acute Assessment and Plan: Creatinine is elevated from baseline. May very well be related to mild dehydration given vomiting. Monitor CMP (7) Chronic anemia: Code(s): D64.9 - Anemia, unspecified Status: Acute Assessment and Plan: Probably chronic blood loss anemia secondary to GI bleed Hemoglobin and hematocrit are stable on review of previous labs. (8) UTI (urinary tract infection): Code(s): N39.0 - Urinary tract infection, site not specified Status: Acute Assessment and Plan: Present on admission give IV antibiotic follow culture results Subjective Date/time seen: 07/22/21 11:22 Interval history: interval history: Patient seen and examined 76 years old female with past medical history of hyperlipidemia stroke presented to the hospital with abdominal pain associated with nausea ultrasound of the abdomen HIDA scan was negative also was found to have AFib with RVR cardiology was consulted treated with Cardizem drip patient currently on Cardizem drip UA was abnormal shows possible UTI started on antibiotic pending culture GI evaluation appreciated patient had EGD showed peptic ulcer disease Patient still have dark bowel movement concern for melena Eliquis is on hold Plan to resume Eliquis in couple of weeks Continue to monitor overnight Patient denies fever headache chest pain shortness of breath I am seeing the patient for abdominal pain Objective Data Vital Signs Vital Signs: Vital Signs - 24 hr 07/21/21 12:07 07/21/21 13:06 07/21/21 13:16 Temperature 97.6 F Pulse Rate 104 H 105 H 110 H Respiratory Rate 18 22 H 20 Blood Pressure 137/87 117/73 138/72 Pulse Oximetry 98 99 99 07/21/21 13:26 07/21/21 14:00 07/21/21 16:00 Temperature Pulse Rate 107 H 111 H 93 Respiratory Rate 19 Blood Pressure 146/91 H Pulse Oximetry 98 07/21/21 17:02 07/21/21 18:00 07/21/21 20:00 Temperature 97.3 F L 97.5 F L Pulse Rate 115 H 102 H 120 H Respiratory Rate 20 16 Blood Pressure 144/86 H 114/50 L Pulse Oximetry 100 99 07/21/21 21:54 07/22/21 00:00 07/22/21 02:00 Temperature 96.8 F L Pulse Rate 92 85 86 Respiratory Rate 16 Blood Pressure 101/55 L Pulse Oximetry 100 07/22/21 04:00 07/22/21 06:00 07/22/21 08:00 Temperature 97.4 F L 98.3 F Pulse Rate 86 78 98 Respiratory Rate 16 16 Blood
[2021-07-22 11:56] LABS: Basophils Percent Auto 0.4 % (0.2-1.2); Eosinophils Absolute Auto 0.1 K/mm3 (0-0.3); Hematocrit 30.7 % (37.0-47.0); Hemoglobin 10.3 g/dL (12.0-15.0); Immature Granulocyte Absolute 0.05 K/mm3 (0.00-0.031); Immature Granulocyte Percent A 0.9 % (0-0.5); Lymphocytes Absolute Auto 1.23 K/mm3 (0.9-3.2); Lymphocytes Percent Auto 21.9 % (18.3-44.2); Mean Corpuscular HGB Conc 33.6 g/dl (32-36); Mean Corpuscular Hemoglobin 31.1 pg (26-34); Mean Corpuscular Volume 92.7 fl (80-100); Mean Platelet Volume 9.6 fl (7.4-10.4); Monocytes Absolute Auto 0.6 K/mm3 (0.1-0.6); Monocytes Percent Auto 10.9 % (2.6-8.5); Neutrophils Absolute Auto 3.6 K/mm3 (1.3-6.7); Neutrophils Percent Auto 63.9 % (45.5-73.1); Platelet Count Result 228 k/mm3 (150-375); Red Blood Count 3.31 M/mm3 (4.2-5.4); Red Cell Distribution Width 13.3 % (11.5-14.5); White Blood Count 5.6 K/mm3 (4.5-10.0)
[2021-07-22 12:44] LABS: Glucose Point of Care 149 mg/dl (65-105)
[2021-07-22 18:00] LABS: Glucose Point of Care 154 mg/dl (65-105)
[2021-07-22 20:09] LABS: Glucose Point of Care 207 mg/dl (65-105)
[2021-07-22] MEDS: APIXABAN 5 MG TABLET PO (22:20)
[2021-07-23] VITALS (10 sets, daily range): BP systolic 106–146; BP diastolic 48–77; PULSE 68–95; RESP 16–20; TEMP 36.3–36.9; O2SAT 97–100
[2021-07-23 05:28] LABS: Basophils Percent Auto 0.4 % (0.2-1.2); Eosinophils Absolute Auto 0.1 K/mm3 (0-0.3); Eosinophils Percent Auto 1.9 % (0-4.4); Hematocrit 27.9 % (37.0-47.0); Hemoglobin 9.1 g/dL (12.0-15.0); Immature Granulocyte Absolute 0.06 K/mm3 (0.00-0.031); Immature Granulocyte Percent A 1.1 % (0-0.5); Lymphocytes Absolute Auto 1.35 K/mm3 (0.9-3.2); Mean Corpuscular HGB Conc 32.6 g/dl (32-36); Mean Corpuscular Hemoglobin 31.2 pg (26-34); Mean Corpuscular Volume 95.5 fl (80-100); Mean Platelet Volume 10.4 fl (7.4-10.4); Monocytes Absolute Auto 0.5 K/mm3 (0.1-0.6); Monocytes Percent Auto 9.1 % (2.6-8.5); Neutrophils Absolute Auto 3.4 K/mm3 (1.3-6.7); Neutrophils Percent Auto 62.5 % (45.5-73.1); Platelet Count Result 218 k/mm3 (150-375); Red Blood Count 2.92 M/mm3 (4.2-5.4); Red Cell Distribution Width 13.4 % (11.5-14.5); White Blood Count 5.4 K/mm3 (4.5-10.0)
--- NOTE | 2021-07-23 06:49 | PC.NURSE ---
This patient, Kenyatta Perkins, was transferred to [[id number]] on 07/23/21 at 0649. Personal belongings sent with patient. Report given to [ ]. Appropriate documentation sent with patient.
--- NOTE | 2021-07-23 06:56 | PC.NURSE ---
0645 RECEIVED PATIENT TO ROOM 242 FROM IMU. ORIENTED TO SURROUNDINGS AND CALL LIGHT WITHIN REACH.
[2021-07-23 08:02] LABS: Glucose Point of Care 144 mg/dl (65-105)
[2021-07-23] MEDS: APIXABAN 5 MG TABLET PO ×2 (09:23→20:57)
[2021-07-23] MEDS: MAGNESIUM OXIDE 400 MG TABLET PO (09:23)
[2021-07-23] MEDS: DICYCLOMINE HCL 10 MG CAPSULE PO (09:23)
[2021-07-23] MEDS: CYCLOBENZAPRINE HCL 5 MG TABLET PO (09:23)
[2021-07-23] MEDS: PANTOPRAZOLE 40 MG TABLET PO ×2 (09:23→16:58)
[2021-07-23] MEDS: VITAMIN B COMPLEX/VIT C CAPSULE 1 EACH PO (09:23)
[2021-07-23] MEDS: MONTELUKAST SODIUM 10 MG TABLET PO (09:23)
[2021-07-23] MEDS: ATORVASTATIN 10 MG TABLET PO (09:23)
[2021-07-23] MEDS: THERAPEUTIC MULTIVITAMINS/MINERALS TAB (*BKC) 1 TABLET PO (09:23)
--- NOTE | 2021-07-23 09:29 | PM.PNCARD ---
Progress Note: A&P Assessment and Plan (1) Atrial fibrillation with rapid ventricular response: Code(s): I48.91 - Unspecified atrial fibrillation Status: Acute Assessment and Plan: Patient found to be in atrial fibrillation with RVR on admission. The chronicity of this is unknown. She has converted to normal sinus rhythm. Continue current dose of p.o. diltiazem. In regards to her anticoagulation, her Eliquis has been resumed per GI. Her hemoglobin did drop 1 g since yesterday, continue close monitoring of H&H. Echo showed normal LV systolic function. (2) Abdominal pain: Code(s): R10.9 - Unspecified abdominal pain Status: Acute Assessment and Plan: Patient admitted to the hospital with 10 day history of abdominal pain associated with nausea and vomiting. Liver enzymes, lipase within normal limits. GI was consulted and she was taken for an EGD which revealed gastric ulcer which was clipped. Further management per primary team and GI. Subjective Date/time seen: 07/23/21 09:29 Interval history: Cardiology follow-up for atrial fibrillation Date of service 07/21/2021: Patient is doing okay today. She is complaining of some mild lower abdominal discomfort. Denies any palpitations, shortness of breath, chest pain. She had some melena this morning and was taken to the GI lab for an EGD where she was found to have a gastric ulcer that was clipped. Date of service 07/22/2021: Feeling better this morning. She is not have any complaints. She says that she had a small bowel movement this morning that was very dark. Remains in afib rate controlled in the low 100's. Date of service 07/23/2021: She is feeling very well this morning. Says that she had a bowel movement this morning that was not dark. She generally is feeling very well, she does have some mild intermittent lower abdominal pain. She is converted to sinus rhythm. Denies any chest pain, shortness of breath, palpitations. Review of Systems Review of Systems: All systems reviewed & are unremarkable except as noted in HPI and below Gastrointestinal: Gastrointestinal: Reports abdominal pain and Reports melena Exam Const: General: comfortable, no acute distress, alert and awake Orientation/consciousness: patient oriented x3 HENMT: Head: normal to inspection Mouth: Yes Normal oral and palatal mucosa present Eyes: General: appearance normal, both eyes and all related structures Pupils: Equal, round and reactive pupils present Neck: Neck: normal visual inspection Resp: Effort & Inspection: normal respiratory effort Auscultation: clear to auscultation bilaterally, no crackles and no rales Cardio: Rate: regular rate Rhythm: regular rhythm Heart sounds: S1 normal heart sound present, S2 normal heart sound present and no murmurs GI: Inspection: normal to inspection Auscultation: normal bowel sounds Skin: General skin exam: normal color Neuro: General: patient oriented x3 Cranial nerves: Yes Equal, round and reactive pupils present Psych: Appearance: grossly normal Mental Status: mental status grossly normal Objective Data Vital Signs Vital Signs: Vital Signs - 24 hr 07/22/21 10:00 07/22/21 12:00 07/22/21 14:00 Temperature 36.9 C Pulse Rate 101 H 131 H 123 H Respiratory Rate 18 Blood Pressure 124/59 L Pulse Oximetry 100 07/22/21 16:00 07/22/21 19:58 07/22/21 20:00 Temperature 36.8 C 36.6 C Pulse Rate 105 H 105 H 116 H Respiratory Rate 18 18 Blood Pressure 123/64 132/78 Pulse Oximetry 100 100 07/22/21 23:29 07/23/21 00:00 07/23/21 04:00 Temperature 36.7 C 36.9 C Pulse Rate 81 80 68 Respiratory Rate 19 20 Blood Pressure 137/67 141/76 H Pulse Oximetry 100 99 07/23/21 06:55 Temperature 36.6 C Pulse Rate 78 Respiratory Rate 16 Blood Pressure 145/60 H Pulse Oximetry 98 Intake/Output Intake/Output: Intake & Output 07/20/21 07/21/21 07/22/21 07/23/21 23:59 23:59 23:59
--- NOTE | 2021-07-23 10:02 | PM.IMPN ---
Progress Note: A&P Assessment and Plan (1) Atrial fibrillation with rapid ventricular response: Code(s): I48.91 - Unspecified atrial fibrillation Status: Acute Assessment and Plan: Cardiology consult Echo Status post Cardizem drip cardiology following Currently in sinus rhythm Hold Eliquis for 2 weeks At increased risk of bleeding (2) Chronic anticoagulation: Code(s): Z79.01 - [facility] (current) use of anticoagulants Status: Acute Assessment and Plan: Hold Eliquis due to melena (3) Chest pain: Qualifiers: Chest pain type: unspecified Qualified Code(s): R07.9 - Chest pain, unspecified Code(s): R07.9 - Chest pain, unspecified Status: Acute Assessment and Plan: Patient denies chest pain patient complains of abdominal pain generalized no aggravating or relieving factors ultrasound abdomen ultrasound kidney HIDA scan was negative Most likely related to gastric peptic ulcer and erosive gastritis seen on EGD continue PPI GI recommendation appreciated (4) Type 2 diabetes mellitus: Code(s): E11.9 - Type 2 diabetes mellitus without complications Status: Acute Assessment and Plan: Hold metformin as her creatinine is elevated from baseline. Continue sliding scale insulin, Accu-Cheks, and hypoglycemic protocol. (5) Hypertension: Code(s): I10 - Essential (primary) hypertension Status: Chronic Assessment and Plan: Blood pressures were reviewed and they are stable. Her antihypertensives will be reviewed and resumed as appropriate. (6) Renal failure: Code(s): N19 - Unspecified kidney failure Status: Acute Assessment and Plan: Creatinine is elevated from baseline. May very well be related to mild dehydration given vomiting. Monitor CMP (7) Chronic anemia: Code(s): D64.9 - Anemia, unspecified Status: Acute Assessment and Plan: Probably chronic blood loss anemia secondary to GI bleed Hemoglobin and hematocrit are stable on review of previous labs. (8) UTI (urinary tract infection): Code(s): N39.0 - Urinary tract infection, site not specified Status: Acute Assessment and Plan: Present on admission give IV antibiotic follow culture results Subjective Date/time seen: 07/23/21 10:02 Interval history: interval history: Patient seen and examined 76 years old female with past medical history of hyperlipidemia stroke presented to the hospital with abdominal pain associated with nausea ultrasound of the abdomen HIDA scan was negative also was found to have AFib with RVR cardiology was consulted treated with Cardizem drip patient currently on Cardizem drip UA was abnormal shows possible UTI started on antibiotic pending culture GI evaluation appreciated patient had EGD showed peptic ulcer disease Denies melena today Hemoglobin dropped by 1,3 from yesterday Eliquis is on hold Plan to resume Eliquis in couple of weeks Continue to monitor overnight Patient denies fever headache chest pain shortness of breath I am seeing the patient for abdominal pain Exam Narrative: Alert Chest no wheeze crackles Abdomen nontender nondistended CVS S1 + S2 Lower extremity edema Objective Data Vital Signs Vital Signs: Vital Signs - 24 hr 07/22/21 12:00 07/22/21 14:00 07/22/21 16:00 Temperature 98.5 F 98.3 F Pulse Rate 131 H 123 H 105 H Respiratory Rate 18 18 Blood Pressure 124/59 L 123/64 Pulse Oximetry 100 100 07/22/21 19:58 07/22/21 20:00 07/22/21 23:29 Temperature 98 F 98.1 F Pulse Rate 105 H 116 H 81 Respiratory Rate 18 19 Blood Pressure 132/78 137/67 Pulse Oximetry 100 100 07/23/21 00:00 07/23/21 04:00 07/23/21 06:55 Temperature 98.4 F 97.8 F Pulse Rate 80 68 78 Respiratory Rate 20 16 Blood Pressure 141/76 H 145/60 H Pulse Oximetry 99 98 Intake/Output Intake/Output: Intake & Output 07/20/21 07/21/21 07/22/2107/10
--- NOTE | 2021-07-23 11:21 | WPDGIPROGNO ---
Progress Note: A&P Assessment and Plan (1) Abdominal pain: Code(s): R10.9 - Unspecified abdominal pain Status: Acute Assessment and Plan: 07/21 the pain began 10 days ago. She states that it was present until last night. She is concerned that she will need something for the pain if it returns when she goes home. I told her that we will try to determine the etiology of her symptoms so that we can give her appropriate therapy. I told her that we will probably perform EGD in the morning. I will hold the morning dose of Eliquis. the question of possible mesenteric ischemia has been brought up. I did not detect a meal related pattern to the pain but I will obtain lactic acid level to make certain that is not elevated. 07/22 Today her pain is primarily in her lower back 07/23 denies pain at the present time. In fact she states she would like to go home. (2) Chronic anemia: Code(s): D64.9 - Anemia, unspecified Status: Acute (3) Atrial fibrillation with rapid ventricular response: Code(s): I48.91 - Unspecified atrial fibrillation Status: Acute Assessment and Plan: Her rate is being controlled with medication. She has been started on Eliquis, which I held yesterday for EGD. I discussed this with the hospitalist. Eliquis was restarted yesterday. I spoke with Cardiology. I think that we will simply keep a close eye on her. (4) Gastric ulcer with hemorrhage: Code(s): K25.4 - Chronic or unspecified gastric ulcer with hemorrhage Status: Acute Assessment and Plan: her hemoglobin Had been holding at 10. I explained her that the ulcer will take several weeks to heal. I told her that we will need to make sure that she stays off her NSAIDs, etodolac. H.pylori is negative. We will keep her on PPI b.i.d. and plan a repeat EGD in about 6 weeks to assess healing. Today the hemoglobin has dropped to 9.1. So far no change in stools but we will need to watch for possible bleeding Subjective Date/time seen: 07/23/21 11:21 today she feels well. She states that she is tolerating her diet with no pain. Her last bowel movement she states was hot dog shape and brown. Eliquis was restarted yesterday when she was transferred. Her blood count did drop however she is not showing any overt evidence of bleeding. I spoke with cardiology who mentioned that her Eliquis had been accidentally restarted yesterday. I feel that for now it is okay if they feel she should have it. We will simply keep an eye on her blood counts. The patient would like to go home today but I told her we cannot let her go until we are certain that her counts are stable. Perhaps tomorrow Review of Systems Review of Systems: All systems reviewed & are unremarkable except as noted in HPI and below Exam Const: General: alert Orientation/consciousness: patient oriented x3 Resp: Auscultation: clear to auscultation bilaterally Cardio: Rhythm: regular rhythm and abnormal rhythm irregularly irregular GI: Inspection: normal to inspection GI Palp: No abdominal tenderness Auscultation: normal bowel sounds Neuro: General: patient oriented x3 Objective Data Vital Signs Vital Signs: Vital Signs - 24 hr 07/22/21 12:00 07/22/21 14:00 07/22/21 16:00 Temperature 36.9 C 36.8 C Pulse Rate 131 H 123 H 105 H Respiratory Rate 18 18 Blood Pressure 124/59 L 123/64 Pulse Oximetry 100 100 07/22/21 19:58 07/22/21 20:00 07/22/21 23:29 Temperature 36.6 C 36.7 C Pulse Rate 105 H 116 H 81 Respiratory Rate 18 19 Blood Pressure 132/78 137/67 Pulse Oximetry 100 100 07/23/21 00:00 07/23/21 04:00 07/23/21 06:55 Temperature 36.9 C 36.6 C Pulse Rate 80 68 78 Respiratory Rate 20 16 Blood Pressure 141/76 H 145/60 H Pulse Oximetry 99 98 07/23/21 08:00 Temperature Pulse Rate 80 Respiratory Rate Blood Pressure Pulse Oximetry Intake/Output Intake/Output: Intake & Output 07/20/21 0
[2021-07-23 11:37] LABS: Glucose Point of Care 126 mg/dl (65-105)
[2021-07-23 11:52] LABS: Hematocrit 30.2 % (37.0-47.0); Hemoglobin 9.8 g/dL (12.0-15.0)
[2021-07-23] MEDS: CEPHALEXIN 500 MG CAPSULE PO ×3 (11:53→20:58)
[2021-07-23 16:18] LABS: Glucose Point of Care 139 mg/dl (65-105)
[2021-07-23 21:21] LABS: IFOB Positive Control Positive; Immunochemical Fecal Occult Bl Negative (N)
[2021-07-23 23:13] LABS: Glucose Point of Care 145 mg/dl (65-105)
[2021-07-24 03:33] VITALS: BP 139/59; PULSE 83; RESP 17; TEMP 37; O2SAT 100
[2021-07-24 06:03] LABS: Basophils Percent Auto 0.3 % (0.2-1.2); Eosinophils Absolute Auto 0.2 K/mm3 (0-0.3); Eosinophils Percent Auto 3.2 % (0-4.4); Hemoglobin 9.7 g/dL (12.0-15.0); Immature Granulocyte Percent A 1.5 % (0-0.5); Lymphocytes Absolute Auto 1.58 K/mm3 (0.9-3.2); Lymphocytes Percent Auto 23.1 % (18.3-44.2); Mean Corpuscular HGB Conc 32.3 g/dl (32-36); Mean Corpuscular Hemoglobin 31.1 pg (26-34); Mean Corpuscular Volume 96.2 fl (80-100); Mean Platelet Volume 10.4 fl (7.4-10.4); Monocytes Absolute Auto 0.6 K/mm3 (0.1-0.6); Neutrophils Absolute Auto 4.4 K/mm3 (1.3-6.7); Neutrophils Percent Auto 63.9 % (45.5-73.1); Platelet Count Result 250 k/mm3 (150-375); Red Blood Count 3.12 M/mm3 (4.2-5.4); Red Cell Distribution Width 13.5 % (11.5-14.5); White Blood Count 6.9 K/mm3 (4.5-10.0)
[2021-07-24] MEDS: CEPHALEXIN 500 MG CAPSULE PO ×2 (06:05→13:36)
[2021-07-24 07:46] LABS: Glucose Point of Care 137 mg/dl (65-105)
--- NOTE | 2021-07-24 07:53 | WPDGIPROGNO ---
Progress Note: A&P Assessment and Plan (1) Atrial fibrillation with rapid ventricular response: Code(s): I48.91 - Unspecified atrial fibrillation Status: Acute Assessment and Plan: Her rate is being controlled with medication. She has been started on Eliquis, which I held yesterday for EGD. I discussed this with the hospitalist. Eliquis was restarted yesterday. I spoke with Cardiology. I think that we will simply keep a close eye on her. (2) Gastric ulcer with hemorrhage: Code(s): K25.4 - Chronic or unspecified gastric ulcer with hemorrhage Status: Acute Assessment and Plan: her hemoglobin Had been holding at 10. I explained her that the ulcer will take several weeks to heal. I told her that we will need to make sure that she stays off her NSAIDs, etodolac. She will need to check with her primary care physician about a replacement for NSAIDs H.pylori is negative. We will keep her on PPI b.i.d. and plan a repeat EGD in about 6 weeks to assess healing. Today the hemoglobin has dropped to 9.1. So far no change in stools but we will need to watch for possible bleeding. Okay from my perspective to be discharged. She will have a follow-up EGD in 6 weeks (3) Anemia due to blood loss, acute: Code(s): D62 - Acute posthemorrhagic anemia Status: Acute Assessment and Plan: her counts are stable. I would refrain from giving her iron at this point because if her stools are black we will not know for certain whether she is bleeding Subjective Date/time seen: 07/24/21 07:53 Today she denies pain. She states she had 1 bowel movement last evening which was a little darker but not black. hemoglobin just came back at 9.7 Review of Systems Review of Systems: All systems reviewed & are unremarkable except as noted in HPI and below Exam Const: General: alert Orientation/consciousness: patient oriented x3 Resp: Auscultation: clear to auscultation bilaterally Cardio: Rhythm: regular rhythm and abnormal rhythm irregularly irregular GI: Inspection: normal to inspection Auscultation: normal bowel sounds Neuro: General: patient oriented x3 Objective Data Vital Signs Vital Signs: Vital Signs - 24 hr 07/23/21 08:00 07/23/21 11:15 07/23/21 12:00 Temperature 36.6 C Pulse Rate 80 95 77 Respiratory Rate 20 Blood Pressure 146/77 H Pulse Oximetry 98 07/23/21 16:00 07/23/21 17:15 07/23/21 19:20 Temperature 36.4 C L 36.3 C L 36.6 C Pulse Rate 91 89 74 Respiratory Rate 16 16 16 Blood Pressure 142/69 H 144/59 H 106/48 L Pulse Oximetry 97 100 98 07/23/21 23:28 07/24/21 03:33 Temperature 36.3 C L 37.0 C Pulse Rate 78 83 Respiratory Rate 18 17 Blood Pressure 141/57 H 139/59 L Pulse Oximetry 99 100 Intake/Output Intake/Output: Intake & Output 07/21/21 07/22/21 07/23/21 07/24/21 23:59 23:59 23:59 23:59 Intake Total 1240 1300 1160 200 Output Total 400 Balance 840 1300 1160 200 Meds/Results Medications: Active Medications Generic Name Dose Route Start Last Admin Trade Name Freq PRN Reason Stop Dose Admin Apixaban 5 mg 07/23/21 21:00 07/23/21 20:57 Apixaban 5 Mg Tablet PO 5 mg Q12HR STEPHEN Administration Atorvastatin Calcium 10 mg 07/20/21 09:00 07/23/21 09:23 Atorvastatin 10 Mg Tablet PO 10 mg DAILY STEPHEN Administration Calcium Carbonate 500 mg 07/20/21 09:00 07/23/21 17:00 Calcium/Vitamin D 500 Mg Tablet PO 500 mg BID STEPHEN Administration Cephalexin HCl 500 mg 07/23/21 10:05 07/24/21 06:05 Cephalexin 500 Mg Capsule PO 07/25/21 22:01 500 mg Q8HR STEPHEN Administration Cyclobenzaprine HCl 5 mg 07/20/21 09:00 07/23/21 09:23 Cyclobenzaprine Hcl 5 Mg Tablet PO 5 mg DAILY STEPHEN Administration Dextrose 12.5 gm 07/19/21 13:11 Dextrose 50% 25 Gm/50 Ml Syringe IV PUSH PRN PRN Hypoglycemia Protocol Dicyclomine HCl 10 mg 07/20/21 16:28 07/23/21 09:23 Dicyclomine Hc
--- NOTE | 2021-07-24 08:47 | PM.DS ---
DS: Admitting Diagnosis Discharge Date 07/24/2021 Admitting Diagnosis Abdominal pain DS: Discharge Diagnosis Discharge Diagnosis (1) Atrial fibrillation with rapid ventricular response: Code(s): I48.91 - Unspecified atrial fibrillation Status: Acute Assessment and Plan: Cardiology consult Echo Status post Cardizem drip cardiology following Currently in sinus rhythm Eliquis was resumed discussed with GI no evidence of bleeding occult blood is negative hemoglobin is stable patient is aware will proceed with oral anticoagulation as patient has history of stroke repeat CBC and 2 days follow-up with Cardiology and PCP (2) Chronic anticoagulation: Code(s): Z79.01 - detention (current) use of anticoagulants Status: Acute Assessment and Plan: Resume Eliquis (3) Chest pain: Qualifiers: Chest pain type: unspecified Qualified Code(s): R07.9 - Chest pain, unspecified Code(s): R07.9 - Chest pain, unspecified Status: Acute Assessment and Plan: Patient denies chest pain patient complains of abdominal pain generalized no aggravating or relieving factors ultrasound abdomen ultrasound kidney HIDA scan was negative Most likely related to gastric peptic ulcer and erosive gastritis seen on EGD continue PPI follow-up on culture results follow up on biopsy results follow up with GI in 1 week GI recommendation appreciated (4) Type 2 diabetes mellitus: Code(s): E11.9 - Type 2 diabetes mellitus without complications Status: Acute Assessment and Plan: Resume home medication (5) Hypertension: Code(s): I10 - Essential (primary) hypertension Status: Chronic Assessment and Plan: Patient had episode of hypotension during hospitalization lisinopril hydrochlorothiazide was discontinued re-evaluate in 1 week follow-up with PCP Patient will be discharged on oral Cardizem (6) Renal failure: Code(s): N19 - Unspecified kidney failure Status: Acute Assessment and Plan: Acute renal failure Repeat CMP in 1 week follow-up with PCP resolved (7) Chronic anemia: Code(s): D64.9 - Anemia, unspecified Status: Acute Assessment and Plan: Probably chronic blood loss anemia secondary to GI bleed Hemoglobin and hematocrit are stable on review of previous labs. (8) UTI (urinary tract infection): Code(s): N39.0 - Urinary tract infection, site not specified Status: Acute Assessment and Plan: Patient will be discharged on oral antibiotic follow-up with PCP DS: Summary Hospital Course Hospital Course: Patient was admitted to the hospital with abdominal pain AFib with RVR cardiology was consulted GI was consulted patient was treated with Cardizem drip was switched to oral Cardizem patient to follow-up with cardiology as outpatient. For abdominal pain GI was consulted EGD was done showed gastric ulcer and erosive gastritis patient was treated with PPI biopsy and culture was taken during endoscopy follow-up on the results patient will be discharged on PPI and follow-up with GI as outpatient. Patient also was found to have UTI treated with antibiotics. Follow-up CBC and CMP in 1 week monitor closely for any sign or symptom of bleeding. Time Spent with Patient Time attestation: Total time spent providing and/or coordinating discharge services: Exam Narrative: Alert Chest no wheeze crackles Abdomen nontender nondistended CVS S1 + S2 Lower extremity edema DS: Data Data Completed and Pending Labs on day of discharge: Labs from last 24 hours 07/24/21 07/24/21 07/23/21 07:39 04:40 20:57 WBC 6.9 RBC 3.12 L Hgb 9.7 L Hct 30.0 L MCV 96.2 MCH 31.1 MCHC 32.3 RDW 13.5 Plt Count 250 MPV 10.4 Immature Gran % (Auto) 1.5 H Neut % (Auto) 63.9 Lymph % (Auto) 23.1 [place] % (Auto) 8.0 Eos % (Auto) 3.2 Baso % (Auto) 0.3 Lymph # (Auto) 1
[2021-07-24] MEDS: ATORVASTATIN 10 MG TABLET PO (08:57)
[2021-07-24] MEDS: APIXABAN 5 MG TABLET PO (08:57)
[2021-07-24] MEDS: VITAMIN B COMPLEX/VIT C CAPSULE 1 EACH PO (08:58)
[2021-07-24] MEDS: THERAPEUTIC MULTIVITAMINS/MINERALS TAB (*BKC) 1 TABLET PO (08:58)
[2021-07-24] MEDS: MAGNESIUM OXIDE 400 MG TABLET PO (08:58)
[2021-07-24] MEDS: PANTOPRAZOLE 40 MG TABLET PO (08:58)
[2021-07-24] MEDS: CYCLOBENZAPRINE HCL 5 MG TABLET PO (08:58)
[2021-07-24] MEDS: MONTELUKAST SODIUM 10 MG TABLET PO (08:58)
[2021-07-24 10:00] VITALS: BP 142/72; PULSE 79; RESP 16; TEMP 36.3; O2SAT 98
[2021-07-24 11:15] LABS: Hematocrit 29.1 % (37.0-47.0); Hemoglobin 9.7 g/dL (12.0-15.0)
[2021-07-24 11:19] LABS: Glucose Point of Care 136 mg/dl (65-105)
== END 2021-07-24 14:03 | disposition home or self-care (01) | DRG 308 ==
LOC: ANHED 09:59 → ANHIMU 14:48 → ANH2MED 07-23 06:50
PROVIDERS: Internal Medicine; Internal Medicine Gastroenterology; Physician Assistant; Admitting Provider Internal Medicine; Emergency Provider Emergency Medicine; PCP Internal Medicine; Visit Provider Internal Medicine
PROC: 0DJ08ZZ Inspection of Upper Intestinal Tract, Via Natural or Artificial Opening Endoscopic (ICD-10-PCS; CPT 43235; principal; 2021-07-21 13:15)
DX: I48.91 Unspecified atrial fibrillation (principal); K25.4 Chronic or unspecified gastric ulcer with hemorrhage; N17.9 Acute kidney failure, unspecified; N39.0 Urinary tract infection, site not specified; D50.0 Iron deficiency anemia secondary to blood loss (chronic); Z20.822 Contact with and (suspected) exposure to COVID-19; E11.9 Type 2 diabetes mellitus without complications; I10 Essential (primary) hypertension; M19.90 Unspecified osteoarthritis, unspecified site; K21.9 Gastro-esophageal reflux disease without esophagitis; E86.0 Dehydration; E78.5 Hyperlipidemia, unspecified; Z96.651 Presence of right artificial knee joint; Z90.49 Acquired absence of other specified parts of digestive tract; Z79.01 Long term (current) use of anticoagulants; Z90.710 Acquired absence of both cervix and uterus; Z98.42 Cataract extraction status, left eye; Z98.41 Cataract extraction status, right eye; Z86.73 Personal history of transient ischemic attack (TIA), and cerebral infarction without residual deficits
CPT/HCPCS: 36415; 71046; 76705; 76775; 78227; 80048; 80053; 80061; 80076; 81001; 82274; 82550; 82948; 83036; 83605; 83690; 83735; 84443; 84484; 85014; 85018; 85025; 85610; 85730; 87081; 87086; 87088; 93005; 96361; 96365; 96366; 99285; A9270; A9537; C8929; C9803; G0378; J0696; J2704; J2805; J7030; J7120; Q9957; U0003; U0005

== ENCOUNTER 2021-10-04 00:33 | Day surgery (SDC) | payer MEDICARE, BC, SELFPAY ==
[2021-09-30 11:58] VITALS: BMI 32.1
[2021-10-04 09:00] VITALS: BP 165/66; PULSE 81; RESP 20; TEMP 36.3; O2SAT 100; BMI 31.8
[2021-10-04 09:06] LABS: Glucose Point of Care 111 mg/dl (65-105)
--- NOTE | 2021-10-04 09:14 | WPDANESEPPF ---
Anes - Initial Pre Proc Eval Procedure: Operation Date: 10/04/21 10:00 Proposed Procedures p Esophagogastroduodenoscopy - Bryant Looney MD Date/Time: 10/04/21 09:14 Surgeon: Bryant Looney MD Pre Op Diagnosis: gastric ulcer Patient Data Age: 76 Gender: F Height: 1.55 m Weight: 76.3 kg Last Vital Signs Temp 36.3 C L 10/04/21 09:00 Pulse 81 10/04/21 09:00 Resp 20 10/04/21 09:00 BP 165/66 H 10/04/21 09:00 Pulse Ox 100 10/04/21 09:00 Allergies Allergy/AdvReac Type Severity Reaction Status Date / Time No Known Allergies Allergy Verified 10/04/21 09:07 Home Medications Medication Instructions Recorded Confirmed Type metformin 500 mg PO DAILY 02/14/20 10/04/21 History montelukast [Singulair] 10 mg PO DAILY 02/14/20 10/04/21 History cyclobenzaprine 5 mg PO BID 06/28/21 10/04/21 History Eliquis 5 mg PO Q12H 06/29/21 10/04/21 History atorvastatin 40 mg PO DAILY 07/01/21 10/04/21 History calcium carbonate-vitamin D2 1 tablet PO BID 07/01/21 10/04/21 History magnesium 500 mg PO DAILY 07/01/21 10/04/21 History potassium 99 mg PO Q12H 07/01/21 10/04/21 History omeprazole 40 mg capsule,delayed 40 mg PO DAILY #30 cap 08/24/21 10/04/21 Rx release Daily Multiple For Women 1 tab-cap PO DAILY 09/30/21 10/04/21 History Joint Health 1 tab-cap PO BID 09/30/21 10/04/21 History alpha lipoic acid 600 mg PO BID 09/30/21 10/04/21 History aspirin [Adult Aspirin] 81 mg PO DAILY 09/30/21 10/04/21 History diltiazem HCl 180 mg PO DAILY 09/30/21 10/04/21 History losartan-hydrochlorothiazide 1 tablet PO DAILY 09/30/21 10/04/21 History vitamin B complex [B Complex] 1 cap PO DAILY 09/30/21 10/04/21 History Laboratory Tests 10/04/21 09:01 POC Capillary Glucose 111 mg/dl H mg/dl (65-105) Patient hx anesthesia problems: none Family hx anesthesia problems: none Results Review: All pre-operative results and documents have been reviewed as part of the pre-operative evaluation. [facility] Past Medical History Medical History Arthritis Cerebrovascular accident (04/2021) Patient received tPA. Chronic anemia Chronic anticoagulation On apixaban since CVA in April 2021. Endometrial cancer (~2015) Status post hysterectomy and chemoradiation. Hypercholesterolemia Hypertension Type 2 diabetes mellitus Surgical History Surgical History History of appendectomy History of hysterectomy (2015) History of total right knee replacement (2013) Status post cataract extraction of both eyes with insertion of intraocular lens Family History Family History Other Unknown family medical history Social History Social History Social History: Surrogate decision maker: Brian Perkins, spouse. Code status: Full code. Smoking status: Never smoker Alcohol intake: never Substance use: never Substance use type: does not use Living arrangements: with family Spiritual care concerns: No Anes - Eval Final PreProcedure Day of Procedure 10/04/21 09:14 Patient weight: obese Heart: regular rate and rhythm Lungs: clear to auscultation and normal air movement Airway: Mallampati scale class II Neurological: alert and oriented Last oral intake: >/= 8 hours ASA classification: IV Emergent: no Anesthetic plan: proceed Anesthesia type and monitoring: general GIVS Results Review: All pre-operative results and documents have been reviewed as part of the pre-operative evaluation. Informed Consent: The patient's anesthetic plan and its attendant risks and benefits were discussed with the patient/family/POA. Questions were solicited and answers provided to the satisfaction of the patient/family/POA.
[2021-10-04] MEDS: LACTATED RINGERS 1,000 ML 150 ML IV CONT (09:18)
--- NOTE | 2021-10-04 09:43 | PM.HPGS ---
History of Present Illness History of Present Illness Consent: Risks, benefits, and alternatives have been discussed and questions answered. Patient agrees to proceed with procedure. Chief complaint: gastric ulcer Narrative: Kenyatta Perkins is a 76 year old female Who was found to have an antral ulcer with bleeding 2 months ago. She returns for follow-up to ensure complete he Review of Systems Review of Systems: All systems reviewed & are unremarkable except as noted in HPI and below PMFSH Past Medical History Medical History Arthritis Cerebrovascular accident (04/2021) Patient received tPA. Chronic anemia Chronic anticoagulation On apixaban since CVA in April 2021. Endometrial cancer (~2015) Status post hysterectomy and chemoradiation. Hypercholesterolemia Hypertension Type 2 diabetes mellitus Surgical History Surgical History History of appendectomy History of hysterectomy (2015) History of total right knee replacement (2013) Status post cataract extraction of both eyes with insertion of intraocular lens Family History Family History Other Unknown family medical history Social History Social History Social History: Surrogate decision maker: Brian Perkins, spouse. Code status: Full code. Smoking status: Never smoker Alcohol intake: never Substance use: never Substance use type: does not use Living arrangements: with family Spiritual care concerns: No Meds Home Medications and Allergies Home Medications Medication Instructions Recorded Confirmed Type metformin 500 mg PO DAILY 02/14/20 10/04/21 History montelukast [Singulair] 10 mg PO DAILY 02/14/20 10/04/21 History cyclobenzaprine 5 mg PO BID 06/28/21 10/04/21 History Eliquis 5 mg PO Q12H 06/29/21 10/04/21 History atorvastatin 40 mg PO DAILY 07/01/21 10/04/21 History calcium carbonate-vitamin D2 1 tablet PO BID 07/01/21 10/04/21 History magnesium 500 mg PO DAILY 07/01/21 10/04/21 History potassium 99 mg PO Q12H 07/01/21 10/04/21 History omeprazole 40 mg capsule,delayed 40 mg PO DAILY #30 cap 08/24/21 10/04/21 Rx release Daily Multiple For Women 1 tab-cap PO DAILY 09/30/21 10/04/21 History Joint Health 1 tab-cap PO BID 09/30/21 10/04/21 History alpha lipoic acid 600 mg PO BID 09/30/21 10/04/21 History aspirin [Adult Aspirin] 81 mg PO DAILY 09/30/21 10/04/21 History diltiazem HCl 180 mg PO DAILY 09/30/21 10/04/21 History losartan-hydrochlorothiazide 1 tablet PO DAILY 09/30/21 10/04/21 History vitamin B complex [B Complex] 1 cap PO DAILY 09/30/21 10/04/21 History Allergies Allergy/AdvReac Type Severity Reaction Status Date / Time No Known Allergies Allergy Verified 10/04/21 09:07 Vital Signs Vital Signs - 24 hr 10/04/21 09:00 Temperature 36.3 C L Pulse Rate 81 Respiratory Rate 20 Blood Pressure 165/66 H Pulse Oximetry 100 Assessment and Plan Assessment and plan (1) Gastric ulcer: Code(s): K25.9 - Gastric ulcer, unspecified as acute or chronic, without hemorrhage or perforation Status: Acute Assessment and Plan: EGD with possible biopsy or dilatation or cautery.
[2021-10-04 09:55] VITALS: BP 154/66; PULSE 69; RESP 17; O2SAT 100
[2021-10-04 10:05] VITALS: BP 150/67; PULSE 70; RESP 19; O2SAT 96
[2021-10-04 10:15] VITALS: BP 161/64; PULSE 67; RESP 20; O2SAT 97
== END 2021-10-04 10:34 | disposition home or self-care (01) ==
PROVIDERS: PCP Internal Medicine; Visit Provider Internal Medicine Gastroenterology
PROC: 0DJ08ZZ Inspection of Upper Intestinal Tract, Via Natural or Artificial Opening Endoscopic (ICD-10-PCS; CPT 43235; principal; 2021-10-04 10:00)
DX: K25.9 Gastric ulcer, unspecified as acute or chronic, without hemorrhage or perforation (principal); K21.9 Gastro-esophageal reflux disease without esophagitis; I10 Essential (primary) hypertension; E78.00 Pure hypercholesterolemia, unspecified; E11.9 Type 2 diabetes mellitus without complications; D64.9 Anemia, unspecified; Z86.73 Personal history of transient ischemic attack (TIA), and cerebral infarction without residual deficits; Z85.42 Personal history of malignant neoplasm of other parts of uterus; Z92.21 Personal history of antineoplastic chemotherapy; Z92.3 Personal history of irradiation; E66.9 Obesity, unspecified; Z68.31 Body mass index [BMI] 31.0-31.9, adult; Z79.84 Long term (current) use of oral hypoglycemic drugs; Z79.01 Long term (current) use of anticoagulants; Z79.82 Long term (current) use of aspirin
CPT/HCPCS: 43239; 82948; 88305; J2001; J2704; J7120

== ENCOUNTER 2022-02-03 03:02 | Day surgery (SDC) | payer MEDICARE, BC, SELFPAY ==
[2022-01-26 13:59] VITALS: BMI 32.1
--- NOTE | 2022-02-02 13:20 | PM.HPGS ---
History of Present Illness History of Present Illness Consent: Risks, benefits, and alternatives have been discussed and questions answered. Patient agrees to proceed with procedure. Chief complaint: gastric ulcer Narrative: Kenyatta Perkins is a 77 year old female Who is here for follow-up of a large gastric ulcer. In July of this year she was hospitalized with bleeding at found to have a gastric ulcer in the antrum. After stabilization and treatment she was sent home on Protonix. A follow-up EGD in September showed only partial healing of the ulcer. It seems that she did not get the prescription immediately for pantoprazole. Review of Systems Review of Systems: All systems reviewed & are unremarkable except as noted in HPI and below PMFSH Past Medical History Medical History Arthritis Cerebrovascular accident (04/2021) Patient received tPA. Chronic anemia Chronic anticoagulation On apixaban since CVA in April 2021. Endometrial cancer (~2015) Status post hysterectomy and chemoradiation. Hypercholesterolemia Hypertension Type 2 diabetes mellitus Surgical History Surgical History History of appendectomy History of hysterectomy (2015) History of total right knee replacement (2013) Status post cataract extraction of both eyes with insertion of intraocular lens Family History Family History Other Unknown family medical history Social History Social History Social History: Surrogate decision maker: Brian Perkins, spouse. Code status: Full code. Smoking status: Never smoker Alcohol intake: never Substance use: never Substance use type: does not use Living arrangements: with family Spiritual care concerns: No Meds Home Medications and Allergies Home Medications Medication Instructions Recorded Confirmed Type metformin 500 mg tablet 500 mg PO DAILY 02/14/20 01/26/22 History montelukast 10 mg tablet 10 mg PO DAILY 02/14/20 01/26/22 History (Singulair) cyclobenzaprine 5 mg tablet 5 mg PO BID 06/28/21 01/26/22 History apixaban 5 mg tablet (Eliquis) 5 mg PO Q12H 06/29/21 01/26/22 History atorvastatin 40 mg tablet 40 mg PO DAILY 07/01/21 01/26/22 History calcium carb-ergocalciferol (vit 1 tablet PO BID 07/01/21 01/26/22 History D2) 600 mg calcium-200 unit tablet magnesium 500 mg tablet 500 mg PO DAILY 07/01/21 01/26/22 History potassium 99 mg tablet 99 mg PO Q12H 07/01/21 01/26/22 History Daily Multiple For Women 1 tab-cap PO DAILY 09/30/21 01/26/22 History Joint Health 1 tab-cap PO BID 09/30/21 01/26/22 History alpha lipoic acid 600 mg tablet 600 mg PO BID 09/30/21 01/26/22 History aspirin 81 mg tablet 81 mg PO DAILY 09/30/21 01/26/22 History diltiazem HCl 180 mg 180 mg PO DAILY 09/30/21 01/26/22 History capsule,extended release 24 hr losartan 100 1 tablet PO DAILY 09/30/21 01/26/22 History mg-hydrochlorothiazide 25 mg tablet vitamin B complex 1 cap PO DAILY 09/30/21 01/26/22 History omeprazole 40 mg capsule,delayed 40 mg PO BID #60 caps 11/22/21 01/26/22 Rx release Allergies Allergy/AdvReac Type Severity Reaction Status Date / Time No Known Allergies Allergy Verified 02/03/22 08:52 Exam Const: General: alert Orientation/consciousness: patient oriented x3 Resp: Auscultation: clear to auscultation bilaterally Cardio: Rhythm: regular rhythm GI: GI Palp: Yes Soft to palpation and No Tenderness to palpation present (GI) Neuro: General: patient oriented x3 Assessment and Plan Assessment and plan (1) Gastric ulcer with hemorrhage: Code(s): K25.4 - Chronic or unspecified gastric ulcer with hemorrhage Status: Acute Assessment and Plan: EGD with possible biopsy or dilatation or cautery.
[2022-02-03 08:53] VITALS: BP 163/75; PULSE 76; RESP 18; TEMP 36.1; O2SAT 99; BMI 32.8
--- NOTE | 2022-02-03 09:00 | WPDANESEPPF ---
Anes - Initial Pre Proc Eval Procedure: Operation Date: 02/03/22 10:00 Proposed Procedures p Esophagogastroduodenoscopy - Bryant Looney MD Date/Time: 02/03/22 09:00 Surgeon: Bryant Looney MD Pre Op Diagnosis: gastric ulcer Patient Data Age: 77 Gender: F Height: 1.55 m Weight: 78.9 kg Last Vital Signs Temp 36.1 C L 02/03/22 08:53 Pulse 76 02/03/22 08:53 Resp 18 02/03/22 08:53 BP 163/75 H 02/03/22 08:53 Pulse Ox 99 02/03/22 08:53 O2 Del Method Room Air 02/03/22 08:53 Allergies Allergy/AdvReac Type Severity Reaction Status Date / Time No Known Allergies Allergy Verified 02/03/22 08:52 Home Medications Medication Instructions Recorded Confirmed Type metformin 500 mg tablet 500 mg PO DAILY 02/14/20 01/26/22 History montelukast 10 mg tablet 10 mg PO DAILY 02/14/20 01/26/22 History (Singulair) cyclobenzaprine 5 mg tablet 5 mg PO BID 06/28/21 01/26/22 History apixaban 5 mg tablet (Eliquis) 5 mg PO Q12H 06/29/21 01/26/22 History atorvastatin 40 mg tablet 40 mg PO DAILY 07/01/21 01/26/22 History calcium carb-ergocalciferol (vit 1 tablet PO BID 07/01/21 01/26/22 History D2) 600 mg calcium-200 unit tablet magnesium 500 mg tablet 500 mg PO DAILY 07/01/21 01/26/22 History potassium 99 mg tablet 99 mg PO Q12H 07/01/21 01/26/22 History Daily Multiple For Women 1 tab-cap PO DAILY 09/30/21 01/26/22 History Joint Health 1 tab-cap PO BID 09/30/21 01/26/22 History alpha lipoic acid 600 mg tablet 600 mg PO BID 09/30/21 01/26/22 History aspirin 81 mg tablet 81 mg PO DAILY 09/30/21 01/26/22 History diltiazem HCl 180 mg 180 mg PO DAILY 09/30/21 01/26/22 History capsule,extended release 24 hr losartan 100 1 tablet PO DAILY 09/30/21 01/26/22 History mg-hydrochlorothiazide 25 mg tablet vitamin B complex 1 cap PO DAILY 09/30/21 01/26/22 History omeprazole 40 mg capsule,delayed 40 mg PO BID #60 caps 11/22/21 01/26/22 Rx release Patient hx anesthesia problems: none Family hx anesthesia problems: none Results Review: All pre-operative results and documents have been reviewed as part of the pre-operative evaluation. [facility] Past Medical History Medical History Arthritis Cerebrovascular accident (04/2021) Patient received tPA. Chronic anemia Chronic anticoagulation On apixaban since CVA in April 2021. Endometrial cancer (~2015) Status post hysterectomy and chemoradiation. Hypercholesterolemia Hypertension Type 2 diabetes mellitus Surgical History Surgical History History of appendectomy History of hysterectomy (2015) History of total right knee replacement (2013) Status post cataract extraction of both eyes with insertion of intraocular lens Family History Family History Other Unknown family medical history Social History Social History Social History: Surrogate decision maker: Brian Perkins, spouse. Code status: Full code. Smoking status: Never smoker Alcohol intake: never Substance use: never Substance use type: does not use Living arrangements: with family Spiritual care concerns: No Anes - Eval Final PreProcedure Day of Procedure 02/03/22 09:00 Patient weight: obese Heart: regular rate and rhythm Lungs: clear to auscultation Airway: Mallampati scale class II Neurological: alert and oriented Last oral intake: >/= 8 hours ASA classification: IV Emergent: no Anesthetic plan: proceed Anesthesia type and monitoring: general GIVS and standard monitoring Results Review: All pre-operative results and documents have been reviewed as part of the pre-operative evaluation. Informed Consent: The patient's anesthetic plan and its attendant risks and benefits were discussed with the patient/family/POA. Questions were solicited and
[2022-02-03 09:10] LABS: Glucose Point of Care 108 mg/dl (65-105)
[2022-02-03] MEDS: LACTATED RINGERS 1,000 ML 150 ML IV CONT (09:13)
[2022-02-03 09:54] VITALS: BP 150/67; PULSE 65; RESP 16; O2SAT 100
[2022-02-03 10:04] VITALS: BP 107/59; PULSE 73; RESP 21; O2SAT 100
[2022-02-03 10:12] VITALS: BP 156/70; PULSE 68; RESP 19; O2SAT 100
== END 2022-02-03 10:21 | disposition home or self-care (01) ==
PROVIDERS: PCP Internal Medicine; Visit Provider Internal Medicine Gastroenterology
PROC: 0DJ08ZZ Inspection of Upper Intestinal Tract, Via Natural or Artificial Opening Endoscopic (ICD-10-PCS; CPT 43235; principal; 2022-02-03 10:00)
DX: Z09 Encounter for follow-up examination after completed treatment for conditions other than malignant neoplasm (principal); K25.9 Gastric ulcer, unspecified as acute or chronic, without hemorrhage or perforation; K21.9 Gastro-esophageal reflux disease without esophagitis; I10 Essential (primary) hypertension; E11.9 Type 2 diabetes mellitus without complications; E78.00 Pure hypercholesterolemia, unspecified; D64.9 Anemia, unspecified; Z86.73 Personal history of transient ischemic attack (TIA), and cerebral infarction without residual deficits; Z85.42 Personal history of malignant neoplasm of other parts of uterus; Z92.21 Personal history of antineoplastic chemotherapy; Z92.3 Personal history of irradiation; Z79.01 Long term (current) use of anticoagulants; Z79.82 Long term (current) use of aspirin; E66.9 Obesity, unspecified; Z68.32 Body mass index [BMI] 32.0-32.9, adult
CPT/HCPCS: 43235; 82948; J7120

== ENCOUNTER 2022-08-02 18:55 | Emergency (ER) | payer MEDICARE, BC, SELFPAY ==
[2022-08-02 18:57] VITALS: BP 172/82; PULSE 91; RESP 16; TEMP 36.2; O2SAT 98
[2022-08-02 20:14] LABS: Add Urine Microscopic? YES; Appearance Urine Turbid (Clear); Bilirubin Urine Negative (Negative); Color Urine Red (Yellow); Glucose Urine UA Negative (Negative); Ketones Urine Negative (Negative); Leukocyte Esterase Ur 1+ LEU/UL (Negative); Nitrate Urine Negative (Negative); Protein Urine 3+ mg/dL (Negative); Specific Grav Ur >= 1.030 (1.001-1.035); Urobilinogen Urine 0.2 mg/dL (<2.0)
[2022-08-02 20:25] LABS: Blood Urine 4+ (Negative)
--- NOTE | 2022-08-02 20:58 | ED.FEMALEGU ---
HPI - Female Genitourinary General Chief complaint: Urogenital-Female Stated complaint: hematuria Time Seen by Provider: 08/02/22 19:19 History of Present Illness HPI Narrative: Patient is a 77-year-old female who presents ER with hematuria. Noticed that yesterday. Gross blood when she urinated. She wears a pad overnight and had no leakage overnight and had no blood in her pad in the morning. She does not think she has vaginal bleeding. She then urinated today and her urine was clear. Later this evening she developed blood again. She noticed that it became bloody after removing some items from drawers and a piece of furniture that she has some young man coming to move this weekend. She is wondering if it could be related to that. She denies any falls or traumatic injury. Does not feel like she lifted anything overly heavy and strained her back. Patient denies history of tobacco abuse. Patient does take Eliquis. Related Data Home Medications Medication Instructions Recorded Confirmed metformin 500 mg tablet 500 mg PO DAILY 02/14/20 01/26/22 montelukast 10 mg tablet 10 mg PO DAILY 02/14/20 01/26/22 (Singulair) cyclobenzaprine 5 mg tablet 5 mg PO BID 06/28/21 01/26/22 apixaban 5 mg tablet (Eliquis) 5 mg PO Q12H 06/29/21 01/26/22 atorvastatin 40 mg tablet 40 mg PO DAILY 07/01/21 01/26/22 calcium carb-ergocalciferol (vit 1 tablet PO BID 07/01/21 01/26/22 D2) 600 mg calcium-200 unit tablet magnesium 500 mg tablet 500 mg PO DAILY 07/01/21 01/26/22 potassium 99 mg tablet 99 mg PO Q12H 07/01/21 01/26/22 Daily Multiple For Women 1 tab-cap PO DAILY 09/30/21 01/26/22 Joint [facility] 1 tab-cap PO BID 09/30/21 01/26/22 alpha lipoic acid 600 mg tablet 600 mg PO BID 09/30/21 01/26/22 aspirin 81 mg tablet 81 mg PO DAILY 09/30/21 01/26/22 diltiazem HCl 180 mg 180 mg PO DAILY 09/30/21 01/26/22 capsule,extended release 24 hr losartan 100 1 tablet PO DAILY 09/30/21 01/26/22 mg-hydrochlorothiazide 25 mg tablet vitamin B complex 1 cap PO DAILY 09/30/21 01/26/22 Allergies Allergy/AdvReac Type Severity Reaction Status Date / Time No Known Allergies Allergy Verified 02/03/22 08:52 Review of Systems Constitutional: Constitutional: Denies chills and Denies fatigue Gastrointestinal: Gastrointestinal: Denies abdominal pain, Denies nausea and Denies vomiting Genitourinary: Genitourinary: Denies abnormal vaginal bleeding, Reports hematuria, Denies nocturia, Denies dysuria and Denies flank pain PMFSH Past Medical History Medical History Arthritis Cerebrovascular accident (04/2021) Patient received tPA. Chronic anemia Chronic anticoagulation On apixaban since CVA in April 2021. Endometrial cancer (~2015) Status post hysterectomy and chemoradiation. Hypercholesterolemia Hypertension Type 2 diabetes mellitus Surgical History Surgical History History of appendectomy History of hysterectomy (2015) History of total right knee replacement (2013) Status post cataract extraction of both eyes with insertion of intraocular lens Family History Family History Other Unknown family medical history Social History Social History Social History: Surrogate decision maker: Brian Perkins, spouse. Code status: Full code. Smoking status: Never smoker Alcohol intake: never Substance use: never Substance use type: does not use Living arrangements: with family Spiritual care concerns: No Exam Narrative: GENERAL: Well-appearing, well-nourished, and in no acute distress. HEAD: Normocephalic, atraumatic. ENT: Mucous membranes moist. CHEST: Clear to auscultation. No respiratory distress. HEART: Regular rate and rhythm. Normal peripheral pulses. ABDOMEN: Soft, nontender, nondistended, normal active bowel so
[2022-08-02 21:08] VITALS: BP 110/72; PULSE 68; RESP 18; TEMP 36.7; O2SAT 100
[2022-08-02] MEDS: CEPHALEXIN 500 MG CAPSULE PO (21:08)
[2022-08-02 21:23] LABS: RBC Urine >75 /hpf (0-2); WBC Urine >75 /hpf
== END 2022-08-02 21:23 | disposition home or self-care (01) ==
PROVIDERS: Emergency Provider Emergency Medicine; PCP Internal Medicine
DX: R31.9 Hematuria, unspecified (principal); M19.90 Unspecified osteoarthritis, unspecified site; I10 Essential (primary) hypertension; E11.9 Type 2 diabetes mellitus without complications; E78.5 Hyperlipidemia, unspecified; D64.9 Anemia, unspecified; Z79.01 Long term (current) use of anticoagulants; Z86.73 Personal history of transient ischemic attack (TIA), and cerebral infarction without residual deficits
CPT/HCPCS: 81001; 87086; 87088; 99283; A9270; J1885

== ENCOUNTER 2022-08-26 12:20 | Outpatient (CLI) | payer MEDICARE, BC, SELFPAY ==
--- NOTE | ~2022-08-26 | CT_ITS ---
EXAMINATION: CT abdomen pelvis wo/w con DATE: 08/26/2022 13:54 INDICATION: Hematuria TECHNIQUE: Computed tomography (CT) of the abdomen and pelvis was performed with and without 130 cc O mnipaque 350 intravenous contrast. The dose-length product was 1190.35 mGy-cm. Automated exposure con trol and iterative reconstruction technique were employed. COMPARISON: None. FINDINGS: Heart size normal. No significant pleural or pericardial effusion. There are left lower lob e parenchymal calcifications, possibly surgical. No significant pleural or pericardial effusion. No r enal/ureteral stones or hydronephrosis. There is a small amount of gas in nondependent in the bladder . There is mild bladder wall thickening with subtle perivesical fatty infiltration, suspicious for cy stitis. There are liver cysts. The spleen, pancreas, and right kidney are unremarkable. There is a small subc entimeter hypodensity of the left kidney, most likely benign cysts. There is nonspecific bilateral ad renal thickening. There is a retroaortic left renal vein. Gallbladder is present. Nonobstructive rocio l gas pattern. Colonic diverticulosis without evidence for diverticulitis. Nonobstructive bowel patte rn. No free air or free fluid. Small fat-containing umbilical hernia. Moderate lumbar spondylosis. Gr shaka 1 degenerative spondylolisthesis at L4-5. IMPRESSION: 1. Mild bladder wall thickening with subtle perivesical fatty infiltration. Small foci of nondependen t gas in the bladder lumen. Findings suspicious for cystitis with possible recent catheterization. Cl inically correlate. Reviewed, dictated and finalized at location A. [employer] IMPRESSION: 1. Mild bladder wall thickening with subtle perivesical fatty infiltration. Sma ll foci of nondependent gas in the bladder lumen. Findings suspicious for cysti tis with possible recent catheterization. Clinically correlate.
--- NOTE | ~2022-08-26 | XR_ITS ---
XR abdomen/kub 1V 08/26/2022 12:46 INDICATION: Flank pain TECHNIQUE: KUB COMPARISON: None FINDINGS: Bowel gas pattern is normal. There is moderate colonic fecal loading. There is no evidence of free air, mass, organomegaly, ascites or obstruction. No abnormal calculi are seen. The bones ap pear intact. 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 Moderate lumbar spondylosis. IMPRESSION: 1: No acute abdominal abnormality identified. Moderate fecal retention of the colon. Reviewed, dictated and finalized at location A. DIPPER IMPRESSION: 1: No acute abdominal abnormality identified. Moderate fecal retention of the c olon.
[2022-08-26 13:35] LABS: Estimated Glomerular Filt Rate 40
== END 2022-08-26 12:21 | disposition home or self-care (01) ==
PROVIDERS: PCP Internal Medicine; Visit Provider Nurse Practitioner Adult Health
DX: R31.0 Gross hematuria (principal); N32.89 Other specified disorders of bladder
CPT/HCPCS: 74018; 74178; Q9967

== ENCOUNTER → 2023-03-04 08:58 | Outpatient (CLI) | payer MEDICARE, BC, SELFPAY ==
--- NOTE | ~2023-03-04 | MR_ITS ---
MRI of the lumbar spine Clinical History: Radiculopathy Technique: Axial T2-weighted images, and sagittal T1-weighted, T2-weighted, and T2 fat-sat images wer e acquired. Findings: No fracture identified. 5 mm anterolisthesis of L4 over L5 is present. No suspicious bone m arrow signal abnormality seen. At L1-L2, there is no disc bulge or herniation. There is mild to moderate facet arthropathy. No centr al canal stenosis or neural foraminal narrowing. At L2-L3, there is minimal disc bulge with moderate facet arthropathy. No central canal stenosis or d efinite neural foraminal narrowing. At L3-L4, there is minimal disc bulge with moderate to severe facet arthropathy. No central canal dina nosis. There is moderate to moderate bilateral neural foraminal narrowing. At L4-L5, there is diffuse disc bulge/uncovering with severe facet arthropathy. These factors continu ed to severe spinal canal stenosis/thecal sac compression. There is severe bilateral neural foraminal narrowing. At L5-S1, there is disc bulge and severe facet arthropathy, with mild to moderate central canal steno sis/thecal sac compression. There is moderate to severe bilateral neural foraminal narrowing. Paravertebral soft tissues are unremarkable. Impression: Severe degenerative spondylosis at L4-L5 and L5-S1, as detailed above. Moderate degenerative spondylosis at L3-L4. 5 mm anterolisthesis of L4 over L5. Reviewed, dictated and finalized at [facility]. Impression: Severe degenerative spondylosis at L4-L5 and L5-S1, as detailed above. Moderate degenerative spondylosis at L3-L4. 5 mm anterolisthesis of L4 over L5.
== END ==
PROVIDERS: PCP Orthopaedic Surgery; Visit Provider Orthopaedic Surgery
DX: M47.26 Other spondylosis with radiculopathy, lumbar region (principal)
CPT/HCPCS: 72148

== ENCOUNTER 2023-08-23 01:27 | Emergency (ER) | payer MEDICARE, BC, SELFPAY ==
[2023-08-23 01:33] VITALS: BP 180/68; PULSE 86; RESP 16; TEMP 36.9; O2SAT 100
--- NOTE | 2023-08-23 01:53 | ED.GENADULT ---
HPI - General Adult General Chief complaint: Extremity Injury, Upper Stated complaint: glf in bathtub - arm pain Time Seen by Provider: 08/23/23 01:43 Source: patient Mode of arrival: ambulatory Limitations: no limitations History of Present Illness HPI narrative: This is a 78-year-old female who presents to the ED with chief complaint of left arm/elbow pain for the past couple of days. Reports that she had a fall a couple of weeks ago while trying to get out of the bathtub. There is no syncope or severe injury at that time. Reports the back pain had gone away but the last couple of days she has had some or pains. She started looking up her symptoms and is now concern for a possible blood clot. She is here today to rule out blood clot. Denies numbness, weakness, any further sites of pain or injury. Per chart review she has history of endometrial cancer and has had CVA, she has on regular Eliquis. Related Data Home Medications Medication Instructions Recorded Confirmed metformin 500 mg tablet 500 mg PO DAILY 02/14/20 01/26/22 montelukast 10 mg tablet 10 mg PO DAILY 02/14/20 01/26/22 (Singulair) cyclobenzaprine 5 mg tablet 5 mg PO BID 06/28/21 01/26/22 apixaban 5 mg tablet (Eliquis) 5 mg PO Q12H 06/29/21 01/26/22 atorvastatin 40 mg tablet 40 mg PO DAILY 07/01/21 01/26/22 calcium carb-ergocalciferol (vit 1 tablet PO BID 07/01/21 01/26/22 D2) 600 mg calcium-200 unit tablet magnesium 500 mg tablet 500 mg PO DAILY 07/01/21 01/26/22 potassium 99 mg tablet 99 mg PO Q12H 07/01/21 01/26/22 Daily Multiple For Women 1 tab-cap PO DAILY 09/30/21 01/26/22 Joint [facility] 1 tab-cap PO BID 09/30/21 01/26/22 alpha lipoic acid 600 mg tablet 600 mg PO BID 09/30/21 01/26/22 aspirin 81 mg tablet 81 mg PO DAILY 09/30/21 01/26/22 diltiazem HCl 180 mg 180 mg PO DAILY 09/30/21 01/26/22 capsule,extended release 24 hr losartan 100 1 tablet PO DAILY 09/30/21 01/26/22 mg-hydrochlorothiazide 25 mg tablet vitamin B complex 1 cap PO DAILY 09/30/21 01/26/22 Allergies Allergy/AdvReac Type Severity Reaction Status Date / Time No Known Allergies Allergy Verified 08/23/23 01:37 Review of Systems Review of Systems: All systems as dictated in [facility] Past Medical History Medical History Arthritis Cerebrovascular accident (04/2021) Patient received tPA. Chronic anemia Chronic anticoagulation On apixaban since CVA in April 2021. Endometrial cancer (~2015) Status post hysterectomy and chemoradiation. Hypercholesterolemia Hypertension Type 2 diabetes mellitus Surgical History Surgical History History of appendectomy History of hysterectomy (2015) History of total right knee replacement (2013) Status post cataract extraction of both eyes with insertion of intraocular lens Family History Family History Other Unknown family medical history Social History Social History Social History: Surrogate decision maker: Brian Perkins, spouse. Code status: Full code. Smoking status: Never smoker Alcohol intake: never Substance use: never Substance use type: does not use Living arrangements: with family Spiritual care concerns: No Exam Narrative: GENERAL: Well-appearing, well-nourished, and in no acute distress. HEAD: Normocephalic, atraumatic. EYES: PERRLA and EOMI. ENT: Nares clear, no rhinorrhea or epistaxis. Mucous membranes moist. Oropharynx without tonsillar hypertrophy exudate or other lesions. NECK: Supple. No adenopathy or masses. CHEST: No respiratory distress. Clear to auscultation. No wheezes rales or rhonchi HEART: Regular rate and rhythm. No murmur heard. Normal peripheral pulses. ABDOMEN: Soft, nontender, nondistended, normal active bowel sounds. MSK: Normal range of motion. No
[2023-08-23 02:15] VITALS: BP 153/62; PULSE 77; RESP 16; TEMP 36.6; O2SAT 98
== END 2023-08-23 02:16 | disposition home or self-care (01) ==
PROVIDERS: Emergency Provider Physician Assistant; PCP Internal Medicine
DX: M25.522 Pain in left elbow (principal); E78.00 Pure hypercholesterolemia, unspecified; I10 Essential (primary) hypertension; E11.9 Type 2 diabetes mellitus without complications; M19.90 Unspecified osteoarthritis, unspecified site; Z90.710 Acquired absence of both cervix and uterus; Z96.651 Presence of right artificial knee joint; Z96.1 Presence of intraocular lens; Z85.44 Personal history of malignant neoplasm of other female genital organs; Z86.73 Personal history of transient ischemic attack (TIA), and cerebral infarction without residual deficits; Z98.42 Cataract extraction status, left eye; Z98.41 Cataract extraction status, right eye; Z79.84 Long term (current) use of oral hypoglycemic drugs; Z79.01 Long term (current) use of anticoagulants; Z79.82 Long term (current) use of aspirin
CPT/HCPCS: 99281

== ENCOUNTER 2023-10-31 08:42 | Outpatient (CLI) | payer MEDICARE, BC, SELFPAY ==
--- NOTE | ~2023-10-31 | DEXA_ITS ---
Bone Density Report Name: DARCY ALMARAZ Age: 78 Sex: Female Ethnicity: White Date of : 1945 Indication: postmenopausal; screening for osteoporosis; height loss; cancer; hysterectomy; Referring Provider: OLAYINKA, MILLY Gomez Study: Bone densitometry was performed. Exam Date: October 31, 2023 Accession number: [id number] Bone Density: Region BMD T-score Z-score Classification AP Spine(L1-L4) 0.844 -1.8 0.8 Osteopenia Femoral Neck (Left) 0.594 -2.3 -0.1 Osteopenia Total Hip (Left) 0.891 -0.4 1.6 Normal Femoral Neck (Right) 0.619 -2.1 0.2 Osteopenia Total Hip (Right) 0.897 -0.4 1.6 Normal Total Hip Mean 0.894 -0.4 1.6 Normal World Health Organization criteria for BMD impression classify patients as: Normal (T-score at or above -1.0), Osteopenia (T-score between -1.0 and -2.5), or Osteoporosis (T-score at or below -2.5). 10-year Fracture Risk(1): Major Osteoporotic Fracture 15% Hip Fracture 4.6% Reported Risk Factors: [place] (), Neck BMD=0.594, BMI=33.8 (1) FRAX(R) Version 3.08. Fracture probability calculated for an untreated patient. Fracture probability may be lower if the patient has received treatment. Clinical Information Provided by Patient: Has used the following medications: Vitamin D, Calcium Has the following medical conditions: Cancer, Hysterectomy Patient maximum height was 62 Menopause Age: 50 No regular weight bearing exercise Drinks caffeinated beverages Onset of menses at age 12 Number of children 2 Impression: The patient has low bone mass, based on the Left Femoral Neck T-score. The patient has an estimated ten-year risk of hip fracture of 4.6% and an estimated ten-year risk of major fracture of 15%, based on the WHO FRAX algorithm. Discussion: BONE DENSITY IS LOW AT ONE OR MORE SKELETAL SITES. THE PATIENT'S BMD AND CLINICAL RISK FACTORS CONTRIBUTE TO THIS PATIENT'S INCREASED RISK OF FRACTURE. This patient's lowest T-score is low at one or more skeletal sites. It meets the World Health Organization's (WHO) criteria for ?low bone mass? (T-score between -1.0 and -2.5). The patient's 10-year risk of hip fracture as calculated by FRAX exceeds the threshold where pharmacological therapy is recommended by the National Osteoporosis Foundation (NOF). However, all treatment decisions require clinical judgment and consideration of individual patient factors, including patient preferences, comorbidities, previous drug use, risk factors not captured in the FRAX model (e.g., frailty, falls, vitamin D deficiency, increased bone turnover, interval significant decline in bone density) and possible under or overestimation of fracture risk by FRAX. The patient should follow a healthful lifestyle (good nutrition with adequate calcium and vitamin D, and appropriate
== END 2023-10-31 08:43 | disposition home or self-care (01) ==
LOC: ANHIMG 08:44
PROVIDERS: PCP Internal Medicine; Visit Provider Internal Medicine
DX: Z78.0 Asymptomatic menopausal state (principal); M85.88 Other specified disorders of bone density and structure, other site; M85.852 Other specified disorders of bone density and structure, left thigh; M85.851 Other specified disorders of bone density and structure, right thigh
CPT/HCPCS: 77080

== ENCOUNTER 2023-11-30 03:41 | Emergency (ER) | payer MEDICARE, BC, SELFPAY ==
[2023-11-30 03:44] VITALS: BP 158/87; PULSE 120; RESP 16; TEMP 36.5; O2SAT 100
[2023-11-30 03:56] VITALS: BP 158/87; PULSE 133; RESP 20; O2SAT 100
--- NOTE | 2023-11-30 04:14 | ED.GENADULT ---
HPI - General Adult General Chief complaint: Skin/Abscess/Foreign Body Stated complaint: Insect bite on R leg Time Seen by Provider: 11/30/23 03:54 History of Present Illness HPI narrative: Patient is a 78-year-old female who presents to the emergency department this evening complaining of a small round rash to her right mid thigh. Patient noticed it a few days ago and states that initially it was itchy, however, she states that the itching has stopped but the rash developed a ring around it. Patient is concerned that this is some form of spider bite. The rash does appear to be a ring worm infection. Patient does not have this rash anywhere else in her body. She admits that it no longer itches. Patient was noted to be tachycardic in the 120s 2 and 30s in our emergency department. Further questioning regarding this revealed that the patient's heart rate normally runs in the 120 and that her PCP is aware of it in the ER monitoring. Patient checks her rate daily keep a log. She is currently denying any chest pain shortness of breath, any nausea or vomiting, any abdominal pain, fevers or chills at home. Denies any additional symptoms or concerns at this time. Related Data Home Medications Medication Instructions Recorded Confirmed metformin 500 mg tablet 500 mg PO DAILY 02/14/20 01/26/22 montelukast 10 mg tablet 10 mg PO DAILY 02/14/20 01/26/22 (Singulair) cyclobenzaprine 5 mg tablet 5 mg PO BID 06/28/21 01/26/22 apixaban 5 mg tablet (Eliquis) 5 mg PO Q12H 06/29/21 01/26/22 atorvastatin 40 mg tablet 40 mg PO DAILY 07/01/21 01/26/22 calcium carb-ergocalciferol (vit 1 tablet PO BID 07/01/21 01/26/22 D2) 600 mg calcium-200 unit tablet magnesium 500 mg tablet 500 mg PO DAILY 07/01/21 01/26/22 potassium 99 mg tablet 99 mg PO Q12H 07/01/21 01/26/22 Daily Multiple For Women 1 tab-cap PO DAILY 09/30/21 01/26/22 Evrent [facility] 1 tab-cap PO BID 09/30/21 01/26/22 alpha lipoic acid 600 mg tablet 600 mg PO BID 09/30/21 01/26/22 aspirin 81 mg tablet 81 mg PO DAILY 09/30/21 01/26/22 diltiazem HCl 180 mg 180 mg PO DAILY 09/30/21 01/26/22 capsule,extended release 24 hr losartan 100 1 tablet PO DAILY 09/30/21 01/26/22 mg-hydrochlorothiazide 25 mg tablet vitamin B complex 1 cap PO DAILY 09/30/21 01/26/22 gabapentin 300 mg capsule 300 mg PO TID 09/25/23 Allergies Allergy/AdvReac Type Severity Reaction Status Date / Time No Known Allergies Allergy Verified 09/25/23 15:33 Review of Systems Review of Systems: All systems are reviewed and are negative unless stated otherwise in the HPI. [facility] Past Medical History Medical History Arthritis Cerebrovascular accident (04/2021) Patient received tPA. Chronic anemia Chronic anticoagulation On apixaban since CVA in April 2021. Colon cancer screening Endometrial cancer (~2015) Status post hysterectomy and chemoradiation. Hemorrhoids Hypercholesterolemia Hypertension Nonerosive esophageal reflux disease Obesity Type 2 diabetes mellitus Surgical History Surgical History History of appendectomy History of hysterectomy (2015) History of total right knee replacement (2013) Status post cataract extraction of both eyes with insertion of intraocular lens Family History Family History Other Unknown family medical history Social History Social History Social History: Surrogate decision maker: Brian Perkins, spouse. Code status: Full code. Smoking status: Never smoker Alcohol intake: never Substance use: never Substance use type: does not use Living arrangements: with family Spiritual care concerns: No Exam Narrative: General: Alert, awake, afebrile, in no acute distress. HEENT: PERRL, no rhinorrhea, no post nasal drip, oropharynx teresa
[2023-11-30 04:35] VITALS: BP 113/70; PULSE 126; RESP 19; O2SAT 99
== END 2023-11-30 04:35 | disposition home or self-care (01) ==
PROVIDERS: Emergency Provider Emergency Medicine; PCP Internal Medicine
DX: B35.4 Tinea corporis (principal); R00.0 Tachycardia, unspecified; I10 Essential (primary) hypertension; E78.00 Pure hypercholesterolemia, unspecified; E66.9 Obesity, unspecified; Z68.36 Body mass index [BMI] 36.0-36.9, adult; D64.9 Anemia, unspecified; K21.9 Gastro-esophageal reflux disease without esophagitis; M19.90 Unspecified osteoarthritis, unspecified site; Z85.44 Personal history of malignant neoplasm of other female genital organs; Z86.73 Personal history of transient ischemic attack (TIA), and cerebral infarction without residual deficits; Z92.21 Personal history of antineoplastic chemotherapy; Z92.3 Personal history of irradiation; Z96.1 Presence of intraocular lens; Z98.42 Cataract extraction status, left eye; Z98.41 Cataract extraction status, right eye; Z79.84 Long term (current) use of oral hypoglycemic drugs; Z79.82 Long term (current) use of aspirin; Z79.01 Long term (current) use of anticoagulants; Z96.651 Presence of right artificial knee joint
CPT/HCPCS: 99283

== ENCOUNTER 2024-07-20 00:09 | Emergency (ER) | payer MEDICARE, BC, SELFPAY ==
--- NOTE | ~2024-07-20 | XR_ITS ---
XR lumbar spine 2-3V DATE: 07/20/2024 07:55 INDICATION: Sciatica. Bilateral leg pain. TECHNIQUE: AP, lateral, coned lateral lumbosacral views COMPARISON: 03/04 2023 MRI lumbar spine 11/17/2019 CT lumbar spine FINDINGS: There is diffuse osteopenia. Minimal dextroscoliosis of the lumbar spine. Included lower thoracic and lumbar pedicles appear intact. No fracture or bone destruction of the lumbar spine is detected. Moderate loss of disc space height at L4-5. Prominent degenerative change at the lower lumbar apophyseal joints with associated grade 1 anterolis thesis of L4-5. No fracture or bone destruction is evident. The sacroiliac joints are intact. Abdominal aortic calcification, without apparent aneurysm. IMPRESSION: Osteopenia Moderate loss of disc space height and grade 1 anterolisthesis of L4-5 Reviewed, dictated and finalized at location A. [employer]
[2024-07-20 00:11] VITALS: BP 168/64; PULSE 88; RESP 16; TEMP 36.4; O2SAT 99
--- NOTE | 2024-07-20 08:19 | ED_ITS ---
HPI - Extremity Problem General Chief complaint: Extremity Problem,Nontraumatic Stated complaint: bilateral leg pains shooting Time Seen by Provider: 07/20/24 07:30 History of Present Illness HPI Narrative: Patient is a 79-year-old female who presents ER with low back pain. Began last night while trying to go to bed. Went from low back down into her thighs bilaterally. No saddle anesthesia. No numbness or tingling in legs. No physical weakness. Pain is subsided. Has not tried any pain medication. No recent injury. No history of chronic back issues. Related Data Home Medications ?Medication ?Instructions ?Recorded ?Confirmed ?Last Taken ?Type metformin 500 mg tablet 500 mg PO DAILY 02/14/20 01/26/22 06/30/21 History montelukast 10 mg tablet 10 mg PO DAILY 02/14/20 01/26/22 06/30/21 History (Singulair) cyclobenzaprine 5 mg tablet 5 mg PO BID 06/28/21 01/26/22 Unknown History apixaban 5 mg tablet (Eliquis) 5 mg PO Q12H 06/29/21 01/26/22 10/01/21 History atorvastatin 40 mg tablet 40 mg PO DAILY 07/01/21 01/26/22 06/30/21 History calcium carb-ergocalciferol (vit 1 tablet PO BID 07/01/21 01/26/22 06/30/21 History D2) 600 mg calcium-200 unit tablet magnesium 500 mg tablet 500 mg PO DAILY 07/01/21 01/26/22 06/30/21 History potassium 99 mg tablet 99 mg PO Q12H 07/01/21 01/26/22 06/30/21 History Daily Multiple For Women 1 tab-cap PO DAILY 09/30/21 01/26/22 Unknown History [facility] 1 tab-cap PO BID 09/30/21 01/26/22 Unknown History alpha lipoic acid 600 mg tablet 600 mg PO BID 09/30/21 01/26/22 Unknown History aspirin 81 mg tablet 81 mg PO DAILY 09/30/21 01/26/22 Unknown History diltiazem HCl 180 mg 180 mg PO DAILY 09/30/21 01/26/22 Unknown History capsule,extended release 24 hr losartan 100 1 tablet PO DAILY 09/30/21 01/26/22 Unknown History mg-hydrochlorothiazide 25 mg tablet vitamin B complex 1 cap PO DAILY 09/30/21 01/26/22 Unknown History gabapentin 300 mg capsule 300 mg PO TID 09/25/23 Unknown History Allergies Allergy/AdvReac Type Severity Reaction Status Date / Time No Known Allergies Allergy Verified 07/20/24 00:09 Review of Systems Constitutional: Constitutional: Reports no additional constitutional complaints Musculoskeletal: Musculoskeletal: Reports back pain, Denies arthralgias and Denies muscle cramps Integumentary/Breasts: Skin/Breast: Reports system reviewed and no additional complaints, except as docu Neurologic: Reports system reviewed and no additional complaints, except as documented PMFSH Past Medical History Medical History Arthritis Cerebrovascular accident (04/2021) Patient received tPA. Chronic anemia Chronic anticoagulation On apixaban since CVA in April 2021. Colon cancer screening Endometrial cancer (~2015) Status post hysterectomy and chemoradiation. Hemorrhoids Hypercholesterolemia Hypertension Nonerosive esophageal reflux disease Obesity Type 2 diabetes mellitus Surgical History Surgical History History of appendectomy History of hysterectomy (2015) History of total right knee replacement (2013) Status post cataract extraction of both eyes with insertion of intraocular lens Family History Family History Other Unknown family medical history Social History Social History Social History: Surrogate decision maker: Brian Perkins, spouse. Code status: Full code. Smoking status: Never smoker Alcohol intake: never Substance use: never Substance use type: does not use Living arrangements: with family Spiritual care concerns: No Exam Narrative: GENERAL: Well-appearing, well-nourished, and in no acute distress. HEAD: Normocephalic, atraumatic. ENT: Mucous membranes moist. CHEST: Clear to auscultation. No respiratory distress. HEART: Regular rate and rhythm. Normal peripheral pulses. BACK: No midline tenderness the T/L-spine. No reproducible paraspinal tenderness. No discomfort in the SI regions. EXTREMITIES: Normal range of motion. No edema. SKIN: Warm, dry, no rash. NEURO: Alert and oriented x3. PSYCH: Normal mood and affect. Course Course Emergency Course: Patient resting comfortably. Informed of results. Discussed outpatient treatment plan. Patient has follow-up with her doctor this week. Vital Signs Vital signs: Vital Signs Temperature 97.6 F 07/20/24 00:11 Pulse Rate 88 07/20/24 00:11 Respiratory Rate 16 07/20/24 00:11 Blood Pressure 168/64 H 07/20/24 00:11 Pulse Oximetry 99 07/20/24 00:11 Oxygen Delivery Room Air 07/20/24 00:11 Temperature 97.6 F 07/20/24 00:11 Pulse Rate 88 07/20/24 00:11 Respiratory Rate 16 07/20/24 00:11 Blood Pressure 168/64 H 07/20/24 00:11 Pulse Oximetry 99 07/20/24 00:11 Oxygen Delivery Room Air 07/20/24 00:11 MDM - Extremity (Nontraumatic) Lab Data Labs: ITS Impressions Lumbar Spine X-Ray 07/20/24 08:10 IMPRESSION: Osteopenia Moderate loss of disc space height and grade 1 anterolisthesis of L4-5 Discharge Plan Discharge Clinical Impression: Sciatica Patient Disposition: Home, Self-Care Condition: Stable Instructions: Sciatica (ED) Additional Instructions: Please return to the emergency department if you develop severe pain that is not controlled by pain medications or if you are unable to walk because of pain or weakness. R eturn to the emergency department immediately if you develop fevers, loss of bowel or bladder control (dribbling of urine or having accidents you wouldn't normally have), inability to urinate, numbness of your genital or anal area, or weakness/numbness of your legs or arms as these could all be signs of a serious medical emergency. Patient Language: [place]ian Prescriptions: New tizanidine 2 mg capsule 2 mg PO Q8H PRN (Reason: muscle spasticity) Qty: 14 0RF acetaminophen 500 mg capsule 500 mg PO QID PRN (Reason: pain) Qty: 20 0RF No Action gabapentin 300 mg capsule 300 mg PO TID metformin 500 mg Tablet 500 mg PO DAILY montelukast [Singulair] 10 mg tablet 10 mg PO DAILY magnesium 500 mg Tablet 500 mg PO DAILY potassium 99 mg Tablet 99 mg PO Q12H calcium carbonate-vitamin D2 600 mg calcium- 200 unit Tablet 1 tablet PO BID atorvastatin 40 mg tablet 40 mg PO DAILY diltiazem HCl 180 mg capsule,extended release 24hr 180 mg PO DAILY losartan-hydrochlorothiazide 100-25 mg tablet 1 tablet PO DAILY aspirin 81 mg Tablet 81 mg PO DAILY vitamin B complex Capsule 1 cap PO DAILY alpha lipoic acid 600 mg Tablet 600 mg PO BID Daily Multiple For Women 1 tab-cap PO DAILY [facility] 1 tab-cap PO BID cyclobenzaprine 5 mg tablet 5 mg PO BID Eliquis 5 mg tablet 5 mg PO Q12H cephalexin 500 mg capsule 500 mg PO Q12H Qty: 14 0RF clotrimazole 1 % cream 1 applic topical BID 28 Days Qty: 30 0RF omeprazole 40 mg capsule,delayed release(DR/EC) See Rx Instructions .ROUTE .COMPLEX Qty: 90 3RF Dose Instruction: 40 MG ORALLY DAILY Rx Instructions: 40 MG ORALLY DAILY Follow-up/Referrals: Timothy,Elliot Gomez MD [Primary Care Provider] - 1 Week
[2024-07-20 08:29] VITALS: BP 165/56; PULSE 67; RESP 14; TEMP 36.4; O2SAT 100
== END 2024-07-20 08:46 | disposition home or self-care (01) ==
PROVIDERS: Emergency Provider Emergency Medicine; PCP Internal Medicine
DX: M54.30 Sciatica, unspecified side (principal); Z79.01 Long term (current) use of anticoagulants; E78.00 Pure hypercholesterolemia, unspecified; I10 Essential (primary) hypertension; E11.9 Type 2 diabetes mellitus without complications; Z96.651 Presence of right artificial knee joint; Z79.82 Long term (current) use of aspirin
CPT/HCPCS: 72100; 99283

== ENCOUNTER 2025-04-14 08:02 | Outpatient (CLI) | payer MEDICARE, BC, SELFPAY ==
--- NOTE | ~2025-04-14 | MR_ITS ---
EXAMINATION: MR lumbar spine wo con DATE: 04/14/2025 08:52 INDICATION: Lumbar radiculopathy. TECHNIQUE: Magnetic resonance imaging (MRI) of the lumbar spine was performed without intravenous contrast. Sequences included sagittal T2-weighted FSE, sagittal T2-weighted FS FSE, sagittal T1-weighted FSE, and axial T2-weighted FSE. COMPARISON: Lumbar spine MRI 03/04/2023 FINDINGS: There is 7 degrees levocurvature of thoracolumbar spine. There is 6 mm anterolisthesis of L4 on L5 and 3 mm anterolisthesis of L5 on S1. Vertebral body heights are normal. There is mildly decreased disc height at L2-L3 and L3-L4, moderately decreased disc height at L4-L5, and mildly decreased disc height at L5-S1. The distal spinal cord signal intensity is normal. The conus medullaris is at T12-L1. 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 The following disc levels are specifically discussed: L1-L2: There is a left central protrusion with annular fissure. There is severe bilateral facet joint osteoarthritis. There is mild bilateral neural foraminal stenosis. There is mild central canal stenosis. L2-L3: The disc is bulging and has an annular fissure. There is moderate bilateral facet joint osteoarthritis. There is mild bilateral neural foraminal stenosis. There is mild central canal stenosis. L3-L4: The disc is bulging and has an annular fissure. There is moderate bilateral facet joint osteoarthritis. There is mild bilateral neural foraminal stenosis. There is mild central canal stenosis. L4-L5: The disc is bulging and has an annular fissure. There is severe bilateral facet joint osteoarthritis. There is moderate bilateral neural foraminal stenosis. There is moderate central canal stenosis. L5-S1: The disc is bulging and has an annular fissure. There is severe bilateral facet joint osteoarthritis. There is mild bilateral neural foraminal stenosis. There is mild central canal stenosis. IMPRESSION: 1. Moderate lumbar spondylosis, stable from 03/04/2023. Reviewed, dictated and finalized at location E.
== END 2025-04-14 08:03 | disposition home or self-care (01) ==
LOC: MICIMG 08:05
PROVIDERS: PCP Internal Medicine; Visit Provider Nurse Practitioner Family
DX: M47.816 Spondylosis without myelopathy or radiculopathy, lumbar region (principal); M47.817 Spondylosis without myelopathy or radiculopathy, lumbosacral region
CPT/HCPCS: 72148